=== PATIENT | male | born 1930 | race Caucasian/White ===

== ENCOUNTER 2017-10-02 19:09 | Inpatient (IN) | payer MEDICARE, OTHER ==
[2017-10-02 19:51] LABS: % BASOPHILS 0.9 % (0.0-2.0); % EOSINOPHILS 1.9 % (0.0-5.0); % LYMPHOCYTES 7.5 % (20.0-50.0); % MONOCYTES 6.3 % (2.0-10.0); % NEUTROPHILS 83.4 % (40.0-80.0); BASOPHILE ABSOLUTE 0.1 Th/cumm (0-0.2); EOSINOPHILE ABSOLUTE 0.3 Th/cmm (0.1-0.4); HEMATOCRIT 37.4 % (41.0-60); HEMOGLOBIN 12.6 gm/dL (12-16); MEAN CELL VOLUME 92.5 fl (80-99); MEAN CORPUSCULAR HEMOGLOBIN 31.1 pg (27.0-31.0); MEAN CORPUSCULAR HGB CONC 33.7 pg (28.0-36.0); MEAN PLATELET VOLUME 13.6 fl; MONOCYTE ABSOLUTE 0.9 Th/cmm (0.3-1.0); NEUTROPHILE ABSOLUTE 11.4 Th/cmm (1.8-8.0); PLATELET COUNT 171 Th/cmm (150-400); RED BLOOD COUNT 4.05 Mil/cmm (3.80-5.80); RED CELL DISTRIBUTION WIDTH 16.5 % (11.5-20.0)
[2017-10-02 20:00] LABS: WHITE BLOOD COUNT 13.7 Th/cmm (4.8-10.8)
[2017-10-02 20:03] LABS: INR 1.03 (0.5-1.4); PROTHROMBIN TIME (TEST) 10.7 SECONDS (9.5-11.5)
[2017-10-02 20:06] LABS: ANION GAP 12.6 (7.0-16.0); BUN - UREA NITROGEN 60 mg/dL (7-25); CALCIUM SERUM 9.5 mg/dL (8.6-10.3); CARBON DIOXIDE 26.4 mEq/L (21.0-31.0); CHLORIDE 112 mEq/L (98-107); CREATININE - SERUM 1.1 mg/dL (0.7-1.3); GLUCOSE 112 mg/dL (70-105); SODIUM SERUM 147 mEq/L (136-145)
--- NOTE | 2017-10-02 20:16 | ED Physician Chart ---
ED Chief Complaint/HPI - Patient Information Date Seen:: 10/02/17 Time Seen:: 20:05 Chief Complaint:: cough and congestion History of Present Illness:: Patient's had cough and congestion for an unspecified length of time Allergies:: Allergies Allergy/AdvReac Type Severity Reaction Status Date / Time No Known Allergies Allergy Verified 10/02/17 19:21 Vitals:: Vital Signs - 8 hr 10/02/17 19:15 Temp 98.2 F HR 70 RR 24 BP 143/66 O2 Sat % 98 Historian:: EMS Review:: Transfer documents Reviewed ED Review of Systems - Review of Systems General/Constitutional: No fever, No chills Skin: No skin lesions Head: No headache Eyes: No loss of vision ENT: No earache Neck: No neck pain Pulmonary: Cough GI: No nausea, No vomiting, No diarrhea G/U: No dysuria Musculoskeletal: No bone or joint pain, No muscle pain Endocrine: No polyuria Psychiatric: Other (dementia) Hematopoietic: No bruising Allergic/Immuno: No urticaria Neurological: No syncope ED Past Medical History - Past Medical History Past Medical History: Dementia, Other (status post urinary tract infection and urosepsis; dementia; hypothyroidism; intractable lower abdominal pain; malnutrition; hypokalemia; hiatal hernia) Family History: Other (unavailable) Social History: Care Facility Surgical History: PEG/GTube Psychiatricy History: Dementia Medication: Reviewed Family Medical History - Family Member Mother History Unknown: Yes ED Physical Exam - Physical Examination Other Gen/Cons comments:: Chronically ill-appearing; minimally verbal Eyes: Lids, conjuctiva normal Skin: No skin lesions ENMT: External ears, nose nl, Oropharynx nl Neck: No mass Respiratory: Nl effort/Exclusion, Clear to Auscultation Cardio Vascular: RRR, No murmur, gallop, rubs GI: No organomegaly, No hernia, Normal BS's Other GI comments:: Left upper quadrant tenderness Extremities: Normal digits & nails Neuro/Psych: No focal deficits ED Labs/Radiology/EKG Results - Lab Results Results: Laboratory Tests 10/02/17 10/02/17 19:43 19:43 WBC 13.7 H RBC 4.05 Hgb 12.6 Hct 37.4 L MCV 92.5 MCH 31.1 H MCHC Differential 33.7 RDW 16.5 Plt Count 171 MPV 13.6 Neutrophils % 83.4 H Lymphocytes % 7.5 L Monocytes % 6.3 Eosinophils % 1.9 Basophils % 0.9 Sodium 147 H Potassium 4.0 Chloride 112 H Carbon Dioxide 26.4 Anion Gap 12.6 BUN 60 H Creatinine 1.1 Est GFR ( Amer) TNP Est GFR (Non-Af Amer) TNP BUN/Creatinine Ratio 54.5 Glucose 112 H Calcium 9.5 - Radiology Results Results: Chest x-ray showed calcification of the aortic arch, hiatal hernia and fecal impaction. CT abdomen and pelvis showed basilar infiltrates and fecal impaction of the sigmoid colon. ED Septic Shock - . Is Septic Shock (SBP<90, OR Lactate>4 mmol\L) present?: No - <6hrs of presentation: Vital Signs: Vital Signs - 8 hr 10/02/17 19:15 Temp 98.2 F HR 70 RR 24 BP 143/66 O2 Sat % 98 ED Reassessment (Disposition) - Reassessment Reassessment Condition:: Unchanged - Diagnosis Diagnosis:: Pneumonia; leukocytosis; fecal impaction; dementia - Patient Disposition Admitted to:: Med/Surg Spoke to:: Ritchie Urbina Admitting Medical Physician:: Ritchie Urbina Condition at Disposition:: Stable, Unchanged
[2017-10-02] MEDS ORDERED: Sodium Chloride 0.9% 1,000 ML IV ONE (21:33)
[2017-10-02] MEDS ORDERED: Piperacillin Sodium/Tazobact 3.375 gm Vial IV ONE (21:36)
[2017-10-02] MEDS ORDERED: Magnesium Hydroxide (MOM) 30 mL UDC GT PRN (21:41)
[2017-10-02] MEDS ORDERED: D5-0.9%NS 1,000 ML IV SCH (21:45)
[2017-10-02] MEDS ORDERED: Albuterol/Ipratropium Neb 3 ML AERS HHN PRN (21:46)
[2017-10-02] MEDS ORDERED: Potassium Chloride 40 MEQ, Lidocaine 1% 20mL Vial 25 MG in Sodium Chloride 0.9% 250 ML IV PRN (21:47)
[2017-10-02] MEDS ORDERED: Morphine Sulfate 2 mg/mL 1mL Syr IVP PRN (21:47)
[2017-10-02] MEDS ORDERED: Mag Sulfate 2gm/50mL Premix 2 GM/50 ML BAG IV PRN (21:47)
[2017-10-02] MEDS ORDERED: Fleet Enema 135 mL RC ONE (21:47)
[2017-10-02] MEDS ORDERED: Pneumococcal Vaccine 0.5 mL Vial IM ONE (23:42)
[2017-10-03] MEDS ORDERED: Piperacillin Sodium/Tazobact 2.25 gm Vial IV ONE ×2 (00:29→05:32)
[2017-10-03 06:09] LABS: % BASOPHILS 0.5 % (0.0-2.0); % EOSINOPHILS 4.5 % (0.0-5.0); % LYMPHOCYTES 8.7 % (20.0-50.0); % MONOCYTES 6.7 % (2.0-10.0); % NEUTROPHILS 79.6 % (40.0-80.0); BASOPHILE ABSOLUTE 0.1 Th/cumm (0-0.2); EOSINOPHILE ABSOLUTE 0.5 Th/cmm (0.1-0.4); HEMATOCRIT 33.7 % (41.0-60); HEMOGLOBIN 11.3 gm/dL (12-16); MEAN CORPUSCULAR HEMOGLOBIN 31.1 pg (27.0-31.0); MEAN CORPUSCULAR HGB CONC 33.5 pg (28.0-36.0); MONOCYTE ABSOLUTE 0.8 Th/cmm (0.3-1.0); NEUTROPHILE ABSOLUTE 8.8 Th/cmm (1.8-8.0); RED BLOOD COUNT 3.62 Mil/cmm (3.80-5.80); RED CELL DISTRIBUTION WIDTH 16.2 % (11.5-20.0); WHITE BLOOD COUNT 11.2 Th/cmm (4.8-10.8)
[2017-10-03 06:10] LABS: PLATELET COUNT 126 Th/cmm (150-400)
[2017-10-03 06:24] LABS: ANION GAP 8.5 (7.0-16.0); BUN - UREA NITROGEN 51 mg/dL (7-25); CALCIUM SERUM 8.5 mg/dL (8.6-10.3); CARBON DIOXIDE 26.8 mEq/L (21.0-31.0); CHLORIDE 118 mEq/L (98-107); GLUCOSE 118 mg/dL (70-105); POTASSIUM SERUM 3.3 mEq/L (3.5-5.1); SODIUM SERUM 150 mEq/L (136-145)
--- NOTE | 2017-10-03 08:11 | Diagnostic Imaging Report ---
Portable chest x-ray HISTORY: Cough Heart size difficult to assess with portable technique in a poor inspiration. There is a poor inspiration with elevation the right hemidiaphragm. Allowing for this factor, no focal processes are seen. Atherosclerotic calcination seen within the aorta. No evidence of pleural fluid. IMPRESSION: 1. Allowing for a poor inspiration, no acute focal pulmonary processes 2. Atherosclerotic vascular changes
--- NOTE | 2017-10-03 08:15 | Diagnostic Imaging Report ---
CT scan abdomen and pelvis without intravenous contrast HISTORY: Pain Total DLP equals 415 CTDI equals 7.3 Axial sections were obtained from the xiphoid process down to the pubic symphysis. Limited sections through the lower chest demonstrate coronary artery calcification. Nonspecific interstitial changes noted in the lower lobes the lungs with pleural thickening. Findings appear chronic. There is a moderate to large hiatal hernia. The liver exhibits a homogeneous parenchyma. Abnormal intraluminal density with intraluminal filling defects noted within the gallbladder. Findings consistent with cholelithiasis. The spleen appears normal. The pancreas appears atrophic. No definite focal lesions. The left kidney is atrophic. There is a mild degree of dilatation of the right renal [place] collecting system. No definite urinary tract calculi are seen. The exam of the pelvis demonstrates is severely distended stool-filled rectum and lower sigmoid colon (maximum diameter equals approximately 12.0 cm). Findings consistent with a fecal impaction. No other abnormal masses or fluid collections are seen. Atherosclerotic [place] case noted throughout the aorta and major branches. Degenerative changes seen to the spine. IMPRESSION: 1. Markedly distended stool-filled rectum and lower sigmoid colon consistent with a severe fecal impaction 2. Mild dilatation of the right renal pelvis that may be related to the markedly distended stool-filled rectum. 3. Findings consistent with cholelithiasis 4. Evidence of coronary artery and atherosclerotic vascular disease 5. Bilateral lower lobe interstitial pulmonary changes and pleural thickening that appear chronic. 6. Moderate to large hiatal hernia
[2017-10-03] MEDS: Levothyroxine 0.05 Mg Tab GT SCH (08:47)
[2017-10-03] MEDS: Aspirin 81mg Chewable Tab GT SCH (08:47)
[2017-10-03] MEDS ORDERED: Sodium Chloride 0.45% 1,000 ML IV SCH (09:00)
--- NOTE | 2017-10-03 09:34 | History & Physical ---
ADMIT DATE: 10/03/2017 CHIEF COMPLAINT: Fevers, cough, and congestion and decreased O2 saturations. HISTORY OF PRESENT ILLNESS: The patient is an 87-year-old male who is a patient of mine at [facility] in [place] for the last couple of days. He was experiencing cough, congestion, and lately he started having intractable fevers. He also had severe fecal impaction and some nausea as well. He also was declining and was more altered than usual. He was sent to the hospital where he was found to have sepsis and hypernatremia and severe fecal impaction. PAST MEDICAL HISTORY: Significant for Alzheimer dementia, COPD, hypertension, and dysphagia. SOCIAL HISTORY: No documented history of alcohol, tobacco, or drug abuse. FAMILY HISTORY: Noncontributory. ALLERGIES: No known drug allergies. PAST SURGICAL HISTORY: Positive for G-tube placement. MEDICATIONS: All medications reviewed and reconciled. REVIEW OF SYSTEMS: GENERAL: Positive recent fatigue and fevers and overall decline. HEENT: No recent head trauma, change in vision, taste, hearing, or smell. Oral: No recent pain or discharge. NECK: No recent tracheal deviation. ABDOMEN: Positive for recent distention. SKIN: No recent rashes. GASTROINTESTINAL: Positive for severe constipation and some nausea as well. MUSCULOSKELETAL: The patient is mostly bedbound. NEURO: He has history of Alzheimer dementia. SKIN: No recent rashes. GENITOURINARY: Positive for increased urinary frequency and incontinence. PHYSICAL EXAMINATION: VITAL SIGNS: Temperature is 98.4 degrees, heart rate is 81, yesterday's temperature is 99, blood pressure 123/81, respirations 18. Currently, no pain. GENERAL: No acute distress. He is awake, but not alert. HEENT: No acute issues. NECK: Trachea is midline. No JVD. CARDIOVASCULAR: Regular rate and rhythm. ABDOMEN: Nontender, slightly distended. It is improved from yesterday. Bowel sounds are present. EXTREMITIES: No edema. SKIN: Poor turgor. RESPIRATORY: Decreased breath sounds bilaterally with some congestion. PSYCHIATRIC: No psychosis or hallucinations. NEUROLOGIC: He is bedbound. MUSCULOSKELETAL: He has significant muscle wasting and decreased muscle strength. LABORATORY DATA: The patient's abdominal pelvis CT shows severe fecal impaction. Chest x-ray does not show any acute abnormalities. LABORATORY DATA: Sodium 147, potassium 4.0, chloride 112, bicarbonate 26.4, BUN 60, creatinine is 1.11, glucose 112, calcium is 8.5. White count is 13.7, hemoglobin is 12.6, platelet count 171,000. ASSESSMENT: 1. Sepsis. 2. Hypovolemic hypernatremia. 3. Hypertension. 4. Chronic obstructive pulmonary disease. 5. Dysphagia. 6. Fecal impaction. 7. Metabolic encephalopathy. 8. Dementia, Alzheimer's type with exacerbation. PLAN: The patient is on IV Zosyn. He received an enema yesterday. He had a few bowel movements. I will get a KUB before starting his G-tube feedings. Dr. Mahan has been consulted for GI as mentioned above. He is n.p.o. except meds. Continue IV fluids. I have changed IV fluids to D5 half NS due to the hypovolemic hypernatremia. Continue blood pressure medications. Follow up on influenza screen and UA as well. JOB# [id number]
--- NOTE | 2017-10-03 09:38 | Diagnostic Imaging Report ---
KUB abdominal film HISTORY: Pain, fecal impaction The exam demonstrates a severely dilated stool-filled rectum and sigmoid colon consistent with a severe fecal impaction. Associated displacement of adjacent bowel loops. No free peritoneal air. IMPRESSION: 1. Markedly dilated stool-filled rectum and sigmoid colon consistent with a severe fecal impaction.
[2017-10-03] MEDS: Potassium Chloride 20 mEq ER Tab PO PRN (09:53)
[2017-10-03] MEDS: D5-0.45NS 1,000 ML IV SCH (10:48)
--- NOTE | 2017-10-04 01:44 | Consultation ---
DATE OF CONSULTATION: 10/03/2017 GI CONSULTATION CONSULTING PHYSICIAN: Ritchie Urbina D.O. REASON FOR CONSULTATION: Fecal impaction. HISTORY OF PRESENT ILLNESS: The patient is an 87-year-old male with past medical history significant for Alzheimer's dementia, COPD who is a resident of a [facility] facility and transferred to the hospital for increasing cough, congestion, nausea, vomiting. It was noted that the patient started to have increasing congestion and coughing and had increasing nausea more than usual over the past several days. There is no documentation of whether the patient was having bowel movements at the nursing facility, although on arrival to the Emergency Room imaging revealed a severe fecal impaction with dilation in the rectum. Thus, the patient was admitted to the hospital for treatment of sepsis, hypernatremia and fecal impaction. PAST MEDICAL HISTORY: Alzheimer's dementia, COPD, hypertension, dysphagia. PAST SURGICAL HISTORY: G-tube placement in the past. FAMILY HISTORY: Noncontributory. SOCIAL HISTORY: The patient is a permanent resident of a nursing facility. There is no documented history of alcohol or drug use. REVIEW OF SYSTEMS: Not possible at this point given the patient's reduced mental status. CURRENT MEDICATIONS: Tylenol, albuterol, aspirin, bisacodyl, heparin subcutaneous, hydralazine, Synthroid, Ativan, milk of magnesia, Lopressor, magnesium sulfate, morphine as needed, Zofran as needed, Zosyn, and Ambien as needed. PHYSICAL EXAMINATION: VITAL SIGNS: Blood pressure is 123/71, pulse of 70-81 beats per minute, temperature 98.4, oxygenation 94%. GENERAL: The patient is lying on his side, flat in bed. He is alert, but not oriented. HEAD, EARS, EYES, NOSE, AND THROAT: Atraumatic, normocephalic appearing head. Pupils are equal and reactive. There is no scleral icterus. Moist mucous membranes are noted. NECK: Supple. No JVD, no thyromegaly, no lymphadenopathy. CHEST: There are bibasilar crackles. CARDIOVASCULAR: S1, S2 are present, regular rate and rhythm. ABDOMEN: G-tube site is clean, dry and intact. Abdomen is soft on palpation. There is no distention, no guarding, no rebound. EXTREMITIES: Contracted. No edema. SKIN: No obvious jaundice or other rashes. LABORATORY DATA: White blood cell count is 11.2, hemoglobin 11.3, platelet count 126. Sodium 150, BUN 51, creatinine 1.0, INR 1.03. Abdomen and pelvis CT on 10/02/2017 showed markedly distended stool-filled rectum and lower sigmoid colon consistent with severe fecal impaction, mild dilation of the right renal pelvis, findings consistent with cholelithiasis. Evidence of coronary artery and atherosclerotic disease, moderate to large hiatal hernia. IMPRESSION: The patient is an 87-year-old male with Alzheimer's dementia, chronic obstructive pulmonary disease, who is a permanent resident of the nursing facility, admitted now to the hospital with signs of possible pulmonary infection as well as fecal impaction and hypernatremia. 1. Fecal impaction. 2. Hypernatremia. 3. Possible sepsis. 4. Alzheimer's dementia. 5. Dysphagia with the G-tube. DISCUSSION: The patient does have fecal impaction on imaging, although his abdomen is not visibly distended on exam. The patient received several Fleet enemas yesterday evening and did have several bowel movements, according to the nursing report. He will likely need much further evacuation of the stool that remains in his left side of his colon and we can attempt this with more enemas today and a very slow bowel prep with GoLYTELY solution. RECOMMENDATIONS: 1. We will give 500 mL tap water enema now and again in 6-8 hours to evacuate more stool from the colon. 2. Periodic digital rectal disimpaction if any stool is in the rectal vault. 3. We will give a slow 4 liter GoLYTELY bowel prep via the G-tube over the course of 24 hours. If the patient has any vomiting or nausea with this, bowel prep will be stopped in order to prevent overloading. 4. The patient will be kept n.p.o. for now. I will continue to follow the patient. Thank you for allowing me to participate in his care. Please call with any further questions. JOB# [id number]
[2017-10-04] MEDS: D5-0.45NS 1,000 ML IV SCH ×2 (03:28→17:17)
[2017-10-04 05:20] LABS: INF A SCREEN NEG FOR INF A; INF B SCREEN NEG FOR INF B
[2017-10-04 06:01] LABS: % BASOPHILS 0.9 % (0.0-2.0); % EOSINOPHILS 15.1 % (0.0-5.0); % LYMPHOCYTES 17.2 % (20.0-50.0); % MONOCYTES 6.4 % (2.0-10.0); % NEUTROPHILS 60.4 % (40.0-80.0); BASOPHILE ABSOLUTE 0.1 Th/cumm (0-0.2); EOSINOPHILE ABSOLUTE 1.1 Th/cmm (0.1-0.4); HEMATOCRIT 34.6 % (41.0-60); HEMOGLOBIN 11.6 gm/dL (12-16); LYMPHOCYTE ABSOLUTE 1.2 Th/cmm (1.5-3.0); MEAN CELL VOLUME 93.1 fl (80-99); MEAN CORPUSCULAR HEMOGLOBIN 31.1 pg (27.0-31.0); MEAN CORPUSCULAR HGB CONC 33.4 pg (28.0-36.0); MEAN PLATELET VOLUME 12.7 fl; MONOCYTE ABSOLUTE 0.5 Th/cmm (0.3-1.0); NEUTROPHILE ABSOLUTE 4.3 Th/cmm (1.8-8.0); PLATELET COUNT 136 Th/cmm (150-400); RED BLOOD COUNT 3.71 Mil/cmm (3.80-5.80); RED CELL DISTRIBUTION WIDTH 16.6 % (11.5-20.0)
[2017-10-04 06:04] LABS: WHITE BLOOD COUNT 7.2 Th/cmm (4.8-10.8)
[2017-10-04 06:15] LABS: ANION GAP 9.1 (7.0-16.0); BUN - UREA NITROGEN 37 mg/dL (7-25); CALCIUM SERUM 8.5 mg/dL (8.6-10.3); CHLORIDE 115 mEq/L (98-107); CREATININE - SERUM 0.9 mg/dL (0.7-1.3); GLUCOSE 95 mg/dL (70-105); POTASSIUM SERUM 3.1 mEq/L (3.5-5.1); SODIUM SERUM 148 mEq/L (136-145)
[2017-10-04] MEDS: Levothyroxine 0.05 Mg Tab GT SCH (06:55)
[2017-10-04] MEDS ORDERED: Potassium Chloride 20 mEq ER Tab PO PRN (07:21)
--- NOTE | 2017-10-04 07:26 | General Progress Note ---
Subjective - Review of Systems Service Date: 10/04/17 Subjective: Pt is status post enemas and a few BMs. However, the KUB following that still shows severe fecal impaction. Dr. Santos saw pt. He gave orders for water enema and golytly. Pt in bed. No n,v,d or cp. No falls or sz. No cough. No sz. Objective - Results Result Diagrams: 10/04/17 05:44 10/04/17 05:44 Recent Labs: Laboratory Last Values WBC 7.2 Th/cmm (4.8-10.8) D 10/04/17 05:44 RBC 3.71 Mil/cmm (3.80-5.80) L 10/04/17 05:44 Hgb 11.6 gm/dL (12-16) L 10/04/17 05:44 Hct 34.6 % (41.0-60) L 10/04/17 05:44 MCV 93.1 fl (80-99) 10/04/17 05:44 MCH 31.1 pg (27.0-31.0) H 10/04/17 05:44 MCHC Differential 33.4 pg (28.0-36.0) 10/04/17 05:44 RDW 16.6 % (11.5-20.0) 10/04/17 05:44 Plt Count 136 Th/cmm (150-400) L 10/04/17 05:44 MPV 12.7 fl 10/04/17 05:44 Neutrophils % 60.4 % (40.0-80.0) 10/04/17 05:44 Lymphocytes % 17.2 % (20.0-50.0) L 10/04/17 05:44 Monocytes % 6.4 % (2.0-10.0) 10/04/17 05:44 Eosinophils % 15.1 % (0.0-5.0) H 10/04/17 05:44 Basophils % 0.9 % (0.0-2.0) 10/04/17 05:44 PT 10.7 SECONDS (9.5-11.5) 10/02/17 19:43 INR 1.03 (0.5-1.4) 10/02/17 19:43 PTT (Actin FS) 27.6 SECONDS (26.0-38.0) 10/02/17 19:43 Sodium 148 mEq/L (136-145) H 10/04/17 05:44 Potassium 3.1 mEq/L (3.5-5.1) L 10/04/17 05:44 Chloride 115 mEq/L (98-107) H 10/04/17 05:44 Carbon Dioxide 27.0 mEq/L (21.0-31.0) 10/04/17 05:44 Anion Gap 9.1 (7.0-16.0) 10/04/17 05:44 BUN 37 mg/dL (7-25) H 10/04/17 05:44 Creatinine 0.9 mg/dL (0.7-1.3) 10/04/17 05:44 Est GFR ( Amer) TNP 10/04/17 05:44 Est GFR (Non-Af Amer) TNP 10/04/17 05:44 BUN/Creatinine Ratio 41.1 10/04/17 05:44 Glucose 95 mg/dL (70-105) 10/04/17 05:44 Whole Bld Lactic Acid 1.41 mmol/L (0.60-1.99) 10/02/17 19:43 Calcium 8.5 mg/dL (8.6-10.3) L 10/04/17 05:44 Influenza A (Rapid) NEG FOR INF A 10/04/17 02:53 Influenza B (Rapid) NEG FOR INF B 10/04/17 02:53 - Physical Exam Vitals and I&O: Vital Signs Temp 96.8 F 10/04/17 04:00 Pulse 60 10/04/17 04:00 Resp 18 10/04/17 04:00 BP 138/65 10/04/17 04:00 Pulse Ox 97 10/04/17 04:00 Intake & Output 10/03/17 10/04/17 10/04/17 18:59 06:59 18:59 Intake Total 50 2600.00 Balance 50 2600.00 Weight (lbs) 49.895 kg Intake: Intake, IV Amount 50 1100.00 D5-0.45NS 1,000 ml @ 75 1000.00 mls/hr IV .[id number] [facility] Rx #:[id number] Piperacillin Sodium/ 50 100 Tazobact 2.25 gm In Sodium Chloride 0.9% 50 ml @ 100 mls/hr IV Q6HR [facility] Rx#:[id number] Tube Feeding 1500 Other: # Voids 3 # Bowel Movements 2 Stool Characteristics Soft Soft Formed Formed Brown Brown Active Medications: Current Medications Acetaminophen (Tylenol) 650 mg GT Q6HR PRN PRN Reason: Pain or Fever >101 Stop: 12/01/17 21:40 Albuterol/Ipratropium (Duoneb Neb) 3 ml HHN Q4HRT PRN PRN Reason: Wheezing Stop: 12/01/17 21:45 Aspirin (Aspirin Chewable) 81 mg GT DAILY [facility] Stop: 12/02/17 08:59 Last Admin: 10/03/17 08:47 Dose: 81 mg Bisacodyl (Dulcolax 10 Mg Supp) 10 mg RC DAILY PRN PRN Reason: Constipation Stop: 12/01/17 21:40 Heparin Sodium (Porcine) (Heparin) 5,000 units SUBQ Q12H [facility] Stop: 12/01/17 21:44 Last Admin: 10/03/17 20:46 Dose: Not Given Hydralazine HCl (Apresoline) 25 mg GT TID PRN PRN Reason: SBP > 150 Stop: 12/01/17 21:40 Potassium Chloride 40 meq/Lidocaine HCl 25 mg/ Sodium Chloride 272.5 mls @ 68 mls/hr IV DAILY PRN PRN Reason: k level less than 3.2 Stop: 12/01/17 21:46 Magnesium Sulfate (Magnesium Sulfate Premix) 2 gm in 50 mls @ 25 mls/hr IV DAILY PRN PRN Reason: Magnesium level less than 1.6 Stop: 12/01/17 21:46 Piperacillin Sod/Tazobactam (Sod 2.25 gm/ Sodium Chloride) 50 mls @ 100 mls/hr IV Q6HR [facility] Stop: 12/02/17 00:00 Last Admin: 10/04/17 06:54 Dose: 100 mls/hr Dextrose/Sodium Chloride (D5-0.45ns) 1,000 mls @ 75 mls/hr IV .[id number] [facility] Stop: 12/02/17 09:14 Last Admin: 10/04/17 03:28 Dose: 75 mls/hr Levothyroxine Sodium (Synthroid) 0.05 mg GT QDAC [facility] Stop: 12/02/17 07:29 Last Admin: 10/04/17 06:55 Dose: 0.05 mg Lorazepam (Ativan) 2 mg IVP Q4HR PRN; Protocol PRN Reason: Anxiety Stop: 12/01/17 21:46 Magnesium Hydroxide (Milk Of Magnesia) 30 ml GT HS PRN PRN Reason: Constipation Stop: 12/01/17 21:40 Metoprolol Tartrate (Lopressor) 25 mg GT BID LAMAR Stop: 12/02/17 08:59 Last Admin: 10/03/17 17:30 Dose: 25 mg Morphine Sulfate (Morphine) 2 mg IVP Q4H PRN PRN Reason: moderate pain Stop: 12/01/17 21:46 Ondansetron HCl (Zofran) 4 mg IVP Q6H PRN PRN Reason: Nausea / Vomiting Stop: 12/01/17 21:46 Potassium Chloride (Klor-Con) 40 meq PO DAILY PRN PRN Reason: k level less than 3.5 Stop: 12/01/17 21:46 Last Admin: 10/03/17 09:53 Dose: 40 meq Potassium Chloride (Klor-Con) 40 meq PO DAILY PRN PRN Reason: k level less than 3.5 Stop: 12/03/17 07:20 Sodium Phosphate (Fleet Enema) 135 ml RC Q48H PRN PRN Reason: Constipation Stop: 12/01/17 21:40 Zolpidem Tartrate (Ambien) 10 mg PO HS PRN PRN Reason: Insomnia Stop: 12/01/17 21:46 General: No acute distress HEENT: Atraumatic, PERRLA Neck: Supple, JVD Cardiovascular: Regular rate, Normal S1 Lungs: Clear to auscultation Abdomen: Bowel sounds Assessment/Plan - Assessment Assessment: Sepsis Hypovolemic Hypernatremia HTN COPD Dysphagia Fecal impaction ME TITUS with Exac - Plan Plan: GI saw pt and ordered water enema and Golytely. FU on bms today. On IV zosyn. WBC trending down. FU on UA and cultures. On iv 0.5ns. Na trending down.
[2017-10-04] MEDS: Aspirin 81mg Chewable Tab GT SCH (08:46)
[2017-10-04] MEDS: Potassium Chloride 20 mEq ER Tab PO PRN (08:47)
--- NOTE | 2017-10-04 08:47 | GI Progress Note ---
Subjective - Review of Systems Subjective: Still with some abd distension, pt denies pain. Has had BMs yesterday with tap water enemas and golytely Objective - Results Result Diagrams: 10/04/17 05:44 10/04/17 05:44 Recent Labs: Laboratory Last Values WBC 7.2 Th/cmm (4.8-10.8) D 10/04/17 05:44 RBC 3.71 Mil/cmm (3.80-5.80) L 10/04/17 05:44 Hgb 11.6 gm/dL (12-16) L 10/04/17 05:44 Hct 34.6 % (41.0-60) L 10/04/17 05:44 MCV 93.1 fl (80-99) 10/04/17 05:44 MCH 31.1 pg (27.0-31.0) H 10/04/17 05:44 MCHC Differential 33.4 pg (28.0-36.0) 10/04/17 05:44 RDW 16.6 % (11.5-20.0) 10/04/17 05:44 Plt Count 136 Th/cmm (150-400) L 10/04/17 05:44 MPV 12.7 fl 10/04/17 05:44 Neutrophils % 60.4 % (40.0-80.0) 10/04/17 05:44 Lymphocytes % 17.2 % (20.0-50.0) L 10/04/17 05:44 Monocytes % 6.4 % (2.0-10.0) 10/04/17 05:44 Eosinophils % 15.1 % (0.0-5.0) H 10/04/17 05:44 Basophils % 0.9 % (0.0-2.0) 10/04/17 05:44 PT 10.7 SECONDS (9.5-11.5) 10/02/17 19:43 INR 1.03 (0.5-1.4) 10/02/17 19:43 PTT (Actin FS) 27.6 SECONDS (26.0-38.0) 10/02/17 19:43 Sodium 148 mEq/L (136-145) H 10/04/17 05:44 Potassium 3.1 mEq/L (3.5-5.1) L 10/04/17 05:44 Chloride 115 mEq/L (98-107) H 10/04/17 05:44 Carbon Dioxide 27.0 mEq/L (21.0-31.0) 10/04/17 05:44 Anion Gap 9.1 (7.0-16.0) 10/04/17 05:44 BUN 37 mg/dL (7-25) H 10/04/17 05:44 Creatinine 0.9 mg/dL (0.7-1.3) 10/04/17 05:44 Est GFR ( Amer) TNP 10/04/17 05:44 Est GFR (Non-Af Amer) TNP 10/04/17 05:44 BUN/Creatinine Ratio 41.1 10/04/17 05:44 Glucose 95 mg/dL (70-105) 10/04/17 05:44 Whole Bld Lactic Acid 1.41 mmol/L (0.60-1.99) 10/02/17 19:43 Calcium 8.5 mg/dL (8.6-10.3) L 10/04/17 05:44 Influenza A (Rapid) NEG FOR INF A 10/04/17 02:53 Influenza B (Rapid) NEG FOR INF B 10/04/17 02:53 - Physical Exam Vitals and I&O: Vital Signs Temp 96.8 F 10/04/17 04:00 Pulse 60 10/04/17 04:00 Resp 18 10/04/17 04:00 BP 138/65 10/04/17 04:00 Pulse Ox 97 10/04/17 04:00 Intake & Output 10/03/17 10/04/17 10/04/17 18:59 06:59 18:59 Intake Total 50 2600.00 Balance 50 2600.00 Weight (lbs) 49.895 kg Intake: Intake, IV Amount 50 1100.00 D5-0.45NS 1,000 ml @ 75 1000.00 mls/hr IV .[id number] [facility] Rx #:[id number] Piperacillin Sodium/ 50 100 Tazobact 2.25 gm In Sodium Chloride 0.9% 50 ml @ 100 mls/hr IV Q6HR [facility] Rx#:[id number] Tube Feeding 1500 Other: # Voids 3 # Bowel Movements 2 Stool Characteristics Soft Soft Formed Formed Brown Brown Active Medications: Current Medications Acetaminophen (Tylenol) 650 mg GT Q6HR PRN PRN Reason: Pain or Fever >101 Stop: 12/01/17 21:40 Albuterol/Ipratropium (Duoneb Neb) 3 ml HHN Q4HRT PRN PRN Reason: Wheezing Stop: 12/01/17 21:45 Aspirin (Aspirin Chewable) 81 mg GT DAILY [facility] Stop: 12/02/17 08:59 Last Admin: 10/03/17 08:47 Dose: 81 mg Bisacodyl (Dulcolax 10 Mg Supp) 10 mg RC DAILY PRN PRN Reason: Constipation Stop: 12/01/17 21:40 Heparin Sodium (Porcine) (Heparin) 5,000 units SUBQ Q12H [facility] Stop: 12/01/17 21:44 Last Admin: 10/03/17 20:46 Dose: Not Given Hydralazine HCl (Apresoline) 25 mg GT TID PRN PRN Reason: SBP > 150 Stop: 12/01/17 21:40 Potassium Chloride 40 meq/Lidocaine HCl 25 mg/ Sodium Chloride 272.5 mls @ 68 mls/hr IV DAILY PRN PRN Reason: k level less than 3.2 Stop: 12/01/17 21:46 Magnesium Sulfate (Magnesium Sulfate Premix) 2 gm in 50 mls @ 25 mls/hr IV DAILY PRN PRN Reason: Magnesium level less than 1.6 Stop: 12/01/17 21:46 Piperacillin Sod/Tazobactam (Sod 2.25 gm/ Sodium Chloride) 50 mls @ 100 mls/hr IV Q6HR [facility] Stop: 12/02/17 00:00 Last Admin: 10/04/17 06:54 Dose: 100 mls/hr Dextrose/Sodium Chloride (D5-0.45ns) 1,000 mls @ 75 mls/hr IV .[id number] [facility] Stop: 12/02/17 09:14 Last Admin: 10/04/17 03:28 Dose: 75 mls/hr Levothyroxine Sodium (Synthroid) 0.05 mg GT QDAC [facility] Stop: 12/02/17 07:29 Last Admin: 10/04/17 06:55 Dose: 0.05 mg Lorazepam (Ativan) 2 mg IVP Q4HR PRN; Protocol PRN Reason: Anxiety Stop: 12/01/17 21:46 Magnesium Hydroxide (Milk Of Magnesia) 30 ml GT HS PRN PRN Reason: Constipation Stop: 12/01/17 21:40 Metoprolol Tartrate (Lopressor) 25 mg GT BID [facility] Stop: 12/02/17 08:59 Last Admin: 10/03/17 17:30 Dose: 25 mg Morphine Sulfate (Morphine) 2 mg IVP Q4H PRN PRN Reason: moderate pain Stop: 12/01/17 21:46 Ondansetron HCl (Zofran) 4 mg IVP Q6H PRN PRN Reason: Nausea / Vomiting Stop: 12/01/17 21:46 Potassium Chloride (Klor-Con) 40 meq PO DAILY PRN PRN Reason: k level less than 3.5 Stop: 12/01/17 21:46 Last Admin: 10/03/17 09:53 Dose: 40 meq Potassium Chloride (Klor-Con) 40 meq PO DAILY PRN PRN Reason: k level less than 3.5 Stop: 12/03/17 07:20 Sodium Phosphate (Fleet Enema) 135 ml RC Q48H PRN PRN Reason: Constipation Stop: 12/01/17 21:40 Zolpidem Tartrate (Ambien) 10 mg PO HS PRN PRN Reason: Insomnia Stop: 12/01/17 21:46 General: Alert, No acute distress HEENT: Atraumatic, PERRLA Neck: Supple Cardiovascular: Regular rate Lungs: Clear to auscultation Abdomen: Bowel sounds, Soft, Other (mild abd distension. G tube site c/d/i) Assessment/Plan - Assessment Assessment: # Fecal impaction # Abd distension # Possible pneumonia CT and KUB show large fecal impaction. Now s/p several enemas and partial golytely bowel prep and has had several BMs Plan: - cont with tap water enemas today, 500cc every 8 hours - cont with slow golytely bowel prep. Hold for nausea or vomiting - NPO until impaction is better resolved - KUB to monitor progress
--- NOTE | 2017-10-04 09:55 | Diagnostic Imaging Report ---
KUB single view HISTORY: Fecal impaction COMPARISON: KUB on 10/03/[address] abdomen and pelvis on 10/02/2017 FINDINGS: There is massive distal fecal impaction with joint gas-filled loops of bowel. Copious stool is noted. Overall generalized degree of stool contents have decreased since prior exam. IMPRESSION: Massive distal fecal impaction. Overall the degree of stool contents throughout the large bowel have slightly decreased since previous examination.
[2017-10-04 10:41] LABS: URINE MICROSCOPIC INDICATED? YES; URINE SOURCE CLEAN C
[2017-10-04 11:05] LABS: URINE BILIRUBIN NEGATIVE (NEGATIVE); URINE BLOOD NEGATIVE (NEGATIVE); URINE GLUCOSE (UA) NEGATIVE (NEGATIVE); URINE KETONE NEGATIVE (NEGATIVE); URINE LEUKOCYTE ESTERASE NEGATIVE (NEGATIVE); URINE NITRATE NEGATIVE (NEGATIVE); URINE PH 6.5 (4.6 - 8.0); URINE PROTEIN TRACE mg/dL (NEGATIVE)
[2017-10-04 11:55] LABS: URINE CLARITY HAZY (CLEAR); URINE COLOR YELLOW
[2017-10-04 12:56] LABS: URINE BACTERIA FEW /hpf (NONE SEEN); URINE EPITHELIAL CELLS OCCASIONAL /lpf (FEW); URINE RBC 0-2 /hpf (0-5)
[2017-10-05 05:37] LABS: % BASOPHILS 0.6 % (0.0-2.0); % EOSINOPHILS 13.6 % (0.0-5.0); % LYMPHOCYTES 15.4 % (20.0-50.0); % MONOCYTES 6.6 % (2.0-10.0); % NEUTROPHILS 63.8 % (40.0-80.0); HEMATOCRIT 31.9 % (41.0-60); HEMOGLOBIN 10.6 gm/dL (12-16); LYMPHOCYTE ABSOLUTE 1.1 Th/cmm (1.5-3.0); MEAN CELL VOLUME 92.6 fl (80-99); MEAN CORPUSCULAR HEMOGLOBIN 30.6 pg (27.0-31.0); MEAN CORPUSCULAR HGB CONC 33.1 pg (28.0-36.0); MEAN PLATELET VOLUME 10.6 fl; MONOCYTE ABSOLUTE 0.5 Th/cmm (0.3-1.0); NEUTROPHILE ABSOLUTE 4.5 Th/cmm (1.8-8.0); PLATELET COUNT 118 Th/cmm (150-400); RED BLOOD COUNT 3.45 Mil/cmm (3.80-5.80); RED CELL DISTRIBUTION WIDTH 15.5 % (11.5-20.0); WHITE BLOOD COUNT 7.1 Th/cmm (4.8-10.8)
[2017-10-05 06:01] LABS: ANION GAP 9.7 (7.0-16.0); BUN - UREA NITROGEN 27 mg/dL (7-25); CALCIUM SERUM 8.1 mg/dL (8.6-10.3); CARBON DIOXIDE 25.6 mEq/L (21.0-31.0); CHLORIDE 114 mEq/L (98-107); GLUCOSE 96 mg/dL (70-105); POTASSIUM SERUM 3.3 mEq/L (3.5-5.1); SODIUM SERUM 146 mEq/L (136-145)
[2017-10-05] MEDS ORDERED: Probiotic Screen MC PRN (10:00)
--- NOTE | 2017-10-05 10:13 | GI Progress Note ---
Subjective - Review of Systems Service Date: 10/05/17 Subjective: Finished bowel prep, having copious liquid stool. Objective - Results Result Diagrams: 10/05/17 05:17 10/05/17 05:17 Recent Labs: Laboratory Last Values WBC 7.1 Th/cmm (4.8-10.8) 10/05/17 05:17 RBC 3.45 Mil/cmm (3.80-5.80) L 10/05/17 05:17 Hgb 10.6 gm/dL (12-16) L 10/05/17 05:17 Hct 31.9 % (41.0-60) L 10/05/17 05:17 MCV 92.6 fl (80-99) 10/05/17 05:17 MCH 30.6 pg (27.0-31.0) 10/05/17 05:17 MCHC Differential 33.1 pg (28.0-36.0) 10/05/17 05:17 RDW 15.5 % (11.5-20.0) 10/05/17 05:17 Plt Count 118 Th/cmm (150-400) L 10/05/17 05:17 MPV 10.6 fl 10/05/17 05:17 Neutrophils % 63.8 % (40.0-80.0) 10/05/17 05:17 Lymphocytes % 15.4 % (20.0-50.0) L 10/05/17 05:17 Monocytes % 6.6 % (2.0-10.0) 10/05/17 05:17 Eosinophils % 13.6 % (0.0-5.0) H 10/05/17 05:17 Basophils % 0.6 % (0.0-2.0) 10/05/17 05:17 PT 10.7 SECONDS (9.5-11.5) 10/02/17 19:43 INR 1.03 (0.5-1.4) 10/02/17 19:43 PTT (Actin FS) 27.6 SECONDS (26.0-38.0) 10/02/17 19:43 Sodium 146 mEq/L (136-145) H 10/05/17 05:17 Potassium 3.3 mEq/L (3.5-5.1) L 10/05/17 05:17 Chloride 114 mEq/L (98-107) H 10/05/17 05:17 Carbon Dioxide 25.6 mEq/L (21.0-31.0) 10/05/17 05:17 Anion Gap 9.7 (7.0-16.0) 10/05/17 05:17 BUN 27 mg/dL (7-25) H 10/05/17 05:17 Creatinine 1.0 mg/dL (0.7-1.3) 10/05/17 05:17 Est GFR ( Amer) TNP 10/05/17 05:17 Est GFR (Non-Af Amer) TNP 10/05/17 05:17 BUN/Creatinine Ratio 27.0 10/05/17 05:17 Glucose 96 mg/dL (70-105) 10/05/17 05:17 Whole Bld Lactic Acid 1.41 mmol/L (0.60-1.99) 10/02/17 19:43 Calcium 8.1 mg/dL (8.6-10.3) L 10/05/17 05:17 Urine Source CLEAN C 10/04/17 10:00 Urine Color YELLOW 10/04/17 10:00 Urine Clarity HAZY (CLEAR) 10/04/17 10:00 Urine pH 6.5 (4.6 - 8.0) 10/04/17 10:00 Ur Specific Toyah 1.020 (1.005-1.030) 10/04/17 10:00 Urine Protein TRACE mg/dL (NEGATIVE) 10/04/17 10:00 Urine Glucose (UA) NEGATIVE mg/dL (NEGATIVE) 10/04/17 10:00 Urine Ketones NEGATIVE mg/dL (NEGATIVE) 10/04/17 10:00 Urine Blood NEGATIVE (NEGATIVE) 10/04/17 10:00 Urine Nitrate NEGATIVE (NEGATIVE) 10/04/17 10:00 Urine Bilirubin NEGATIVE (NEGATIVE) 10/04/17 10:00 Urine Urobilinogen 4.0 E.U./dL (0.2 - 1.0) H 10/04/17 10:00 Ur Leukocyte Esterase NEGATIVE (NEGATIVE) 10/04/17 10:00 Urine RBC 0-2 /hpf (0-5) H 10/04/17 10:00 Urine WBC 2-5 /hpf (0-5) H 10/04/17 10:00 Ur Epithelial Cells OCCASIONAL /lpf (FEW) 10/04/17 10:00 Urine Bacteria FEW /hpf (NONE SEEN) 10/04/17 10:00 Influenza A (Rapid) NEG FOR INF A 10/04/17 02:53 Influenza B (Rapid) NEG FOR INF B 10/04/17 02:53 - Physical Exam Vitals and I&O: Vital Signs Temp 96.9 F 10/05/17 07:52 Pulse 72 10/05/17 08:03 Resp 18 10/05/17 08:04 BP 134/66 10/05/17 07:52 Pulse Ox 93 10/05/17 08:03 Intake & Output 10/04/17 10/05/17 10/05/17 18:59 06:59 18:59 Intake Total 3328.75 50 Balance 3328.75 50 Weight (lbs) 55.202 kg 54.431 kg 54.885 kg Intake: Intake, IV Amount 1208.75 50 D5-0.45NS 1,000 ml @ 75 1058.75 mls/hr IV .[id number] [facility] Rx #:[id number] Piperacillin Sodium/ 150 50 Tazobact 2.25 gm In Sodium Chloride 0.9% 50 ml @ 100 mls/hr IV Q6HR [facility] Rx#:[id number] Oral 0 Tube Feeding 2120 Other: # Voids 3 4 # Bowel Movements 5 4 Stool Characteristics Soft Soft Liquid Liquid Liquid Brown Brown Active Medications: Current Medications Acetaminophen (Tylenol) 650 mg GT Q6HR PRN PRN Reason: Pain or Fever >101 Stop: 12/01/17 21:40 Last Admin: 10/04/17 11:37 Dose: 650 mg Albuterol/Ipratropium (Duoneb Neb) 3 ml HHN Q4HRT PRN PRN Reason: Wheezing Stop: 12/01/17 21:45 Aspirin (Aspirin Chewable) 81 mg GT DAILY [facility] Stop: 12/02/17 08:59 Last Admin: 10/04/17 08:46 Dose: 81 mg Bisacodyl (Dulcolax 10 Mg Supp) 10 mg RC DAILY PRN PRN Reason: Constipation Stop: 12/01/17 21:40 Heparin Sodium (Porcine) (Heparin) 5,000 units SUBQ Q12H [facility] Stop: 12/01/17 21:44 Last Admin: 10/04/17 22:45 Dose: Not Given Hydralazine HCl (Apresoline) 25 mg GT TID PRN PRN Reason: SBP > 150 Stop: 12/01/17 21:40 Potassium Chloride 40 meq/Lidocaine HCl 25 mg/ Sodium Chloride 272.5 mls @ 68 mls/hr IV DAILY PRN PRN Reason: k level less than 3.2 Stop: 12/01/17 21:46 Magnesium Sulfate (Magnesium Sulfate Premix) 2 gm in 50 mls @ 25 mls/hr IV DAILY PRN PRN Reason: Magnesium level less than 1.6 Stop: 12/01/17 21:46 Piperacillin Sod/Tazobactam (Sod 2.25 gm/ Sodium Chloride) 50 mls @ 100 mls/hr IV Q6HR [facility] Stop: 12/02/17 00:00 Last Admin: 10/05/17 05:48 Dose: 100 mls/hr Dextrose/Sodium Chloride (D5-0.45ns) 1,000 mls @ 75 mls/hr IV .[id number] [facility] Stop: 12/02/17 09:14 Last Infusion: 10/04/17 18:04 Dose: 75 mls/hr Lactobacillus Rhamnosus (Culturelle 15b) 1 each PO DAILY [facility] Stop: 12/05/17 08:59 Levothyroxine Sodium (Synthroid) 0.05 mg GT QDAC [facility] Stop: 12/02/17 07:29 Last Admin: 10/04/17 06:55 Dose: 0.05 mg Lorazepam (Ativan) 2 mg IVP Q4HR PRN; Protocol PRN Reason: Anxiety Stop: 12/01/17 21:46 Magnesium Hydroxide (Milk Of Magnesia) 30 ml GT HS PRN PRN Reason: Constipation Stop: 12/01/17 21:40 Metoprolol Tartrate (Lopressor) 25 mg GT BID [facility] Stop: 12/02/17 08:59 Last Admin: 10/04/17 16:48 Dose: Not Given Miscellaneous (Probiotic Screen) 1 ea MC PRN PRN PRN Reason: PROTOCOL Stop: 12/04/17 09:59 Morphine Sulfate (Morphine) 2 mg IVP Q4H PRN PRN Reason: moderate pain Stop: 12/01/17 21:46 Ondansetron HCl (Zofran) 4 mg IVP Q6H PRN PRN Reason: Nausea / Vomiting Stop: 12/01/17 21:46 Potassium Chloride (Klor-Con) 40 meq PO DAILY PRN PRN Reason: k level less than 3.5 Stop: 12/01/17 21:46 Last Admin: 10/04/17 08:47 Dose: 40 meq Potassium Chloride (Klor-Con) 40 meq PO DAILY PRN PRN Reason: k level less than 3.5 Stop: 12/03/17 07:20 Sodium Phosphate (Fleet Enema) 135 ml RC Q48H PRN PRN Reason: Constipation Stop: 12/01/17 21:40 Zolpidem Tartrate (Ambien) 10 mg PO HS PRN PRN Reason: Insomnia Stop: 12/01/17 21:46 General: Alert, No acute distress HEENT: Atraumatic, PERRLA Neck: Supple Cardiovascular: Regular rate Lungs: Clear to auscultation Abdomen: Bowel sounds, Soft, Other (mild abd distension. G tube site c/d/i) Assessment/Plan - Assessment Assessment: # Fecal impaction # Abd distension # Possible pneumonia CT and KUB show large fecal impaction. Now s/p several enemas and golytely bowel prep and is having liquid stool. KUB on 10/04 shows some improvement although still large amount of stool. Plan: - cont with tap water enemas today, 500cc every 8 hours - start miralax bid for maintenance - start feeds at low rate today - KUB to monitor progress tomorrow
[2017-10-05] MEDS: Aspirin 81mg Chewable Tab GT SCH (10:33)
[2017-10-05] MEDS: Potassium Chloride 20 mEq ER Tab PO PRN (10:45)
[2017-10-05] MEDS: POLYETHYLENE GLYCOL 3350 17 GM PACK PO SCH ×2 (12:34→17:27)
[2017-10-05] MEDS: D5-0.45NS 1,000 ML IV SCH (13:57)
--- NOTE | 2017-10-05 19:16 | Discharge Summary ---
DATE OF DISCHARGE: 10/05/2017 Date of transfer to halfway [facility] is 10/05/2017. CAUSE OF ADMISSION: The patient is an 87-year-old male, who is a patient of mine at halfway facility in [facility]. He was experiencing cough, congestion, and he started having intractable fevers. He also has severe fecal impaction and some nausea. He was declining and was altered than usual. In the ER, he was found to have sepsis, hypernatremia, severe fecal impaction. ADMITTING DIAGNOSES: 1. Sepsis. 2. Hypovolemic hypernatremia. 3. Hypertension. 4. Chronic obstructive pulmonary disease. 5. Dysphagia. 6. Severe fecal impaction. 7. Metabolic encephalopathy. 8. Dementia, Alzheimer's type with exacerbation. DISCHARGE DIAGNOSES: 1. Sepsis. 2. Hypovolemic hypernatremia. 3. Hypertension. 4. Chronic obstructive pulmonary disease. 5. Dysphagia. 6. Severe fecal impaction. 7. Metabolic encephalopathy. 8. Dementia, Alzheimer's type with exacerbation. SUMMARY OF HOSPITAL COURSE: The patient was started on IV Zosyn. He has received a couple of enemas. He started to have bowel movements. The KUB still shows massive amounts of fecal impaction, so Dr. Santos was consulted for GI. He gave him GoLYTELY and water enema, after that he had a few bowel movements. He is feeling much better now. He has been on IV fluids. He was n.p.o. I changed IV fluids to half NS and his hypernatremia has improved. Blood pressure medications were continued. The patient is feeling much better today. PHYSICAL EXAMINATION: VITAL SIGNS: Temperature 96.9 degrees, heart rate is 80, respirations 18, blood pressure 133/68. Currently, no pain. GENERAL: No acute distress, awake. HEENT: No acute issues. NECK: Trachea is midline. CARDIOVASCULAR: Regular rate and rhythm. ABDOMEN: G-tube is intact. Distention is improved. Bowel sounds are present. EXTREMITIES: No edema. SKIN: No rashes. LABORATORY DATA: Sodium 146, potassium 3.3, chloride 114, bicarbonate 25.6, BUN 27, creatinine is 1, calcium is 8.1. Please note that the patient will get his p.r.n. potassium this morning. White count has come down to 7.1, hemoglobin is 10.6, platelet count is 118,000. The patient's KUB shows distention with fecal impaction that was yesterday on 10/04. He has had several bowel movements since then. CONSULTS: Dr. Santos for GI. He has cleared him as well. DIAGNOSTIC DATA: Blood culture is negative. MRSA screen is negative. MEDICATIONS: All medications reviewed and reconciled. We will continue IV Zosyn for 2 more days. DISPOSITION: He is being discharged to halfway facility. The patient's family does not want [facility], so we have sent a requisition to [facility] in [place] since the family lives nearby. PROCEDURES: None. JOB# [id number]
[2017-10-06] MEDS: D5-0.45NS 1,000 ML IV SCH (05:51)
[2017-10-06 06:48] LABS: % BASOPHILS 0.2 % (0.0-2.0); % EOSINOPHILS 12.7 % (0.0-5.0); % LYMPHOCYTES 14.6 % (20.0-50.0); % MONOCYTES 7.1 % (2.0-10.0); % NEUTROPHILS 65.4 % (40.0-80.0); HEMATOCRIT 32.8 % (41.0-60); HEMOGLOBIN 11.3 gm/dL (12-16); LYMPHOCYTE ABSOLUTE 1.2 Th/cmm (1.5-3.0); MEAN CELL VOLUME 93.1 fl (80-99); MEAN CORPUSCULAR HGB CONC 34.4 pg (28.0-36.0); MEAN PLATELET VOLUME 10.7 fl; MONOCYTE ABSOLUTE 0.6 Th/cmm (0.3-1.0); NEUTROPHILE ABSOLUTE 5.4 Th/cmm (1.8-8.0); PLATELET COUNT 112 Th/cmm (150-400); RED BLOOD COUNT 3.52 Mil/cmm (3.80-5.80); RED CELL DISTRIBUTION WIDTH 15.5 % (11.5-20.0); WHITE BLOOD COUNT 8.2 Th/cmm (4.8-10.8)
[2017-10-06] MEDS: Levothyroxine 0.05 Mg Tab GT SCH (06:54)
[2017-10-06 07:04] LABS: ANION GAP 10.8 (7.0-16.0); BUN - UREA NITROGEN 19 mg/dL (7-25); CALCIUM SERUM 8.3 mg/dL (8.6-10.3); CHLORIDE 111 mEq/L (98-107); CREATININE - SERUM 0.9 mg/dL (0.7-1.3); GLUCOSE 116 mg/dL (70-105); SODIUM SERUM 140 mEq/L (136-145)
[2017-10-06 07:16] LABS: POTASSIUM SERUM 2.8 mEq/L (3.5-5.1)
[2017-10-06] MEDS ORDERED: Potassium Chloride Elixir 20 mEq /15 mL UDC PO PRN (08:06)
[2017-10-06] MEDS: Lactobacillus Rhamnosus GG 15 Billion CFU CAP.SPRINK PO SCH (08:47)
[2017-10-06] MEDS: POLYETHYLENE GLYCOL 3350 17 GM PACK PO SCH ×2 (08:48→17:23)
[2017-10-06] MEDS: Aspirin 81mg Chewable Tab GT SCH (08:48)
--- NOTE | 2017-10-06 09:53 | GI Progress Note ---
Subjective - Review of Systems Service Date: 10/06/17 Subjective: Having daily BMs Objective - Results Result Diagrams: 10/06/17 05:58 10/06/17 05:58 Recent Labs: Laboratory Last Values WBC 8.2 Th/cmm (4.8-10.8) 10/06/17 05:58 RBC 3.52 Mil/cmm (3.80-5.80) L 10/06/17 05:58 Hgb 11.3 gm/dL (12-16) L 10/06/17 05:58 Hct 32.8 % (41.0-60) L 10/06/17 05:58 MCV 93.1 fl (80-99) 10/06/17 05:58 MCH 32.0 pg (27.0-31.0) H 10/06/17 05:58 MCHC Differential 34.4 pg (28.0-36.0) 10/06/17 05:58 RDW 15.5 % (11.5-20.0) 10/06/17 05:58 Plt Count 112 Th/cmm (150-400) L 10/06/17 05:58 MPV 10.7 fl 10/06/17 05:58 Neutrophils % 65.4 % (40.0-80.0) 10/06/17 05:58 Lymphocytes % 14.6 % (20.0-50.0) L 10/06/17 05:58 Monocytes % 7.1 % (2.0-10.0) 10/06/17 05:58 Eosinophils % 12.7 % (0.0-5.0) H 10/06/17 05:58 Basophils % 0.2 % (0.0-2.0) 10/06/17 05:58 PT 10.7 SECONDS (9.5-11.5) 10/02/17 19:43 INR 1.03 (0.5-1.4) 10/02/17 19:43 PTT (Actin FS) 27.6 SECONDS (26.0-38.0) 10/02/17 19:43 Sodium 140 mEq/L (136-145) 10/06/17 05:58 Potassium 2.8 mEq/L (3.5-5.1) L* 10/06/17 05:58 Chloride 111 mEq/L (98-107) H 10/06/17 05:58 Carbon Dioxide 21.0 mEq/L (21.0-31.0) 10/06/17 05:58 Anion Gap 10.8 (7.0-16.0) 10/06/17 05:58 BUN 19 mg/dL (7-25) 10/06/17 05:58 Creatinine 0.9 mg/dL (0.7-1.3) 10/06/17 05:58 Est GFR ( Amer) TNP 10/06/17 05:58 Est GFR (Non-Af Amer) TNP 10/06/17 05:58 BUN/Creatinine Ratio 21.1 10/06/17 05:58 Glucose 116 mg/dL (70-105) H 10/06/17 05:58 Whole Bld Lactic Acid 1.41 mmol/L (0.60-1.99) 10/02/17 19:43 Calcium 8.3 mg/dL (8.6-10.3) L 10/06/17 05:58 Urine Source CLEAN C 10/04/17 10:00 Urine Color YELLOW 10/04/17 10:00 Urine Clarity HAZY (CLEAR) 10/04/17 10:00 Urine pH 6.5 (4.6 - 8.0) 10/04/17 10:00 Ur Specific Lacey 1.020 (1.005-1.030) 10/04/17 10:00 Urine Protein TRACE mg/dL (NEGATIVE) 10/04/17 10:00 Urine Glucose (UA) NEGATIVE mg/dL (NEGATIVE) 10/04/17 10:00 Urine Ketones NEGATIVE mg/dL (NEGATIVE) 10/04/17 10:00 Urine Blood NEGATIVE (NEGATIVE) 10/04/17 10:00 Urine Nitrate NEGATIVE (NEGATIVE) 10/04/17 10:00 Urine Bilirubin NEGATIVE (NEGATIVE) 10/04/17 10:00 Urine Urobilinogen 4.0 E.U./dL (0.2 - 1.0) H 10/04/17 10:00 Ur Leukocyte Esterase NEGATIVE (NEGATIVE) 10/04/17 10:00 Urine RBC 0-2 /hpf (0-5) H 10/04/17 10:00 Urine WBC 2-5 /hpf (0-5) H 10/04/17 10:00 Ur Epithelial Cells OCCASIONAL /lpf (FEW) 10/04/17 10:00 Urine Bacteria FEW /hpf (NONE SEEN) 10/04/17 10:00 Influenza A (Rapid) NEG FOR INF A 10/04/17 02:53 Influenza B (Rapid) NEG FOR INF B 10/04/17 02:53 - Physical Exam Vitals and I&O: Vital Signs Temp 98.1 F 10/06/17 07:38 Pulse 82 10/06/17 08:47 Resp 18 10/06/17 07:38 BP 158/85 10/06/17 08:47 Pulse Ox 95 10/06/17 07:38 Intake & Output 10/05/17 10/06/17 10/06/17 18:59 06:59 18:59 Intake Total 150 1340 Output Total 30 Balance 150 1310 Weight (lbs) 54.885 kg 56.699 kg Intake: Intake, IV Amount 150 1100 D5-0.45NS 1,000 ml @ 75 1000 mls/hr IV .[id number] [facility] Rx #:[id number] Piperacillin Sodium/ 150 100 Tazobact 2.25 gm In Sodium Chloride 0.9% 50 ml @ 100 mls/hr IV Q6HR [facility] Rx#:[id number] Oral 0 Tube Feeding 240 Output: Gastric Drainage 30 Other: # Voids 4 # Bowel Movements 1 Stool Characteristics Liquid Soft Brown Active Medications: Current Medications Acetaminophen (Tylenol) 650 mg GT Q6HR PRN PRN Reason: Pain or Fever >101 Stop: 12/01/17 21:40 Last Admin: 10/04/17 11:37 Dose: 650 mg Albuterol/Ipratropium (Duoneb Neb) 3 ml HHN Q4HRT PRN PRN Reason: Wheezing Stop: 12/01/17 21:45 Aspirin (Aspirin Chewable) 81 mg GT DAILY [facility] Stop: 12/02/17 08:59 Last Admin: 10/06/17 08:48 Dose: 81 mg Bisacodyl (Dulcolax 10 Mg Supp) 10 mg RC DAILY PRN PRN Reason: Constipation Stop: 12/01/17 21:40 Heparin Sodium (Porcine) (Heparin) 5,000 units SUBQ Q12H [facility] Stop: 12/01/17 21:44 Last Admin: 10/06/17 08:50 Dose: 5,000 units Hydralazine HCl (Apresoline) 25 mg GT TID PRN PRN Reason: SBP > 150 Stop: 12/01/17 21:40 Potassium Chloride 40 meq/Lidocaine HCl 25 mg/ Sodium Chloride 272.5 mls @ 68 mls/hr IV DAILY PRN PRN Reason: k level less than 3.2 Stop: 12/01/17 21:46 Magnesium Sulfate (Magnesium Sulfate Premix) 2 gm in 50 mls @ 25 mls/hr IV DAILY PRN PRN Reason: Magnesium level less than 1.6 Stop: 12/01/17 21:46 Piperacillin Sod/Tazobactam (Sod 2.25 gm/ Sodium Chloride) 50 mls @ 100 mls/hr IV Q6HR [facility] Stop: 12/02/17 00:00 Last Infusion: 10/06/17 06:20 Dose: Infused Dextrose/Sodium Chloride (D5-0.45ns) 1,000 mls @ 75 mls/hr IV .[id number] [facility] Stop: 12/02/17 09:14 Last Admin: 10/06/17 05:51 Dose: 75 mls/hr Potassium Chloride 40 meq/Lidocaine HCl 25 mg/ Sodium Chloride 272.5 mls @ 68 mls/hr IV X1 ONE Stop: 10/06/17 13:38 Lactobacillus Rhamnosus (Culturelle 15b) 1 each PO DAILY [facility] Stop: 12/05/17 08:59 Last Admin: 10/06/17 08:47 Dose: 1 each Levothyroxine Sodium (Synthroid) 0.05 mg GT QDAC [facility] Stop: 12/02/17 07:29 Last Admin: 10/06/17 06:54 Dose: 0.05 mg Lorazepam (Ativan) 2 mg IVP Q4HR PRN; Protocol PRN Reason: Anxiety Stop: 12/01/17 21:46 Last Admin: 10/06/17 08:46 Dose: 2 mg Magnesium Hydroxide (Milk Of Magnesia) 30 ml GT HS PRN PRN Reason: Constipation Stop: 12/01/17 21:40 Metoprolol Tartrate (Lopressor) 25 mg GT BID LAMAR Stop: 12/02/17 08:59 Last Admin: 10/06/17 08:47 Dose: 25 mg Miscellaneous (Probiotic Screen) 1 ea MC PRN PRN PRN Reason: PROTOCOL Stop: 12/04/17 09:59 Morphine Sulfate (Morphine) 2 mg IVP Q4H PRN PRN Reason: moderate pain Stop: 12/01/17 21:46 Ondansetron HCl (Zofran) 4 mg IVP Q6H PRN PRN Reason: Nausea / Vomiting Stop: 12/01/17 21:46 Polyethylene Glycol (Miralax) 17 gm PO BID LAMAR Stop: 12/04/17 10:14 Last Admin: 10/06/17 08:48 Dose: 17 gm Potassium Chloride (Potassium Chloride Elixir) 40 meq PO DAILY PRN PRN Reason: k level less than 3.5 Stop: 12/03/17 07:20 Last Admin: 10/06/17 08:47 Dose: 40 meq Sodium Phosphate (Fleet Enema) 135 ml RC Q48H PRN PRN Reason: Constipation Stop: 12/01/17 21:40 Zolpidem Tartrate (Ambien) 10 mg PO HS PRN PRN Reason: Insomnia Stop: 12/01/17 21:46 General: Alert HEENT: Atraumatic, PERRLA Neck: Supple Cardiovascular: Regular rate Lungs: Clear to auscultation Abdomen: Bowel sounds, Soft, Other (mild abd distension. G tube site c/d/i) Assessment/Plan - Assessment Assessment: # Fecal impaction # Abd distension # Possible pneumonia CT and KUB show large fecal impaction. Now s/p several enemas and golytely bowel prep and is having liquid stool. KUB on 10/04 shows some improvement although still large amount of stool. Plan: - recommend daily tap water enema back at his nursing facility - cont miralax bid for maintenance - cont tube feeds, and advance to goal rate
[2017-10-06] MEDS ORDERED: Potassium Chloride 40 MEQ, Lidocaine 1% 20mL Vial 25 MG in Sodium Chloride 0.9% 250 ML IV ONE (11:00)
[2017-10-06] MEDS ORDERED: methylPREDNISolone SS 40 mg Vial ONE (15:06)
[2017-10-06] MEDS ORDERED: methylPREDNISolone SS 40 mg Vial IVP ONE (15:09)
[2017-10-06] MEDS ORDERED: Albuterol/Ipratropium Neb 3 ML AERS HHN PRN (15:11)
[2017-10-06 15:34] LABS: ALLEN TEST YES; pH 7.49 (7.35-7.45)
[2017-10-06 15:55] LABS: ANION GAP 12.6 (7.0-16.0); BUN - UREA NITROGEN 22 mg/dL (7-25); CALCIUM SERUM 8.5 mg/dL (8.6-10.3); CARBON DIOXIDE 23.8 mEq/L (21.0-31.0); CHLORIDE 112 mEq/L (98-107); CREATININE - SERUM 1.1 mg/dL (0.7-1.3); GLUCOSE 103 mg/dL (70-105); POTASSIUM SERUM 3.4 mEq/L (3.5-5.1); SODIUM SERUM 145 mEq/L (136-145)
[2017-10-06] MEDS: Albuterol/Ipratropium Neb 3 ML AERS HHN SCH ×3 (16:06→23:22)
[2017-10-06] MEDS: methylPREDNISolone SS 40 mg Vial IVP SCH ×2 (18:18→23:47)
[2017-10-07] MEDS: Albuterol/Ipratropium Neb 3 ML AERS HHN SCH ×6 (02:43→23:26)
[2017-10-07 04:56] LABS: pH 7.22 (7.35-7.45)
[2017-10-07 04:58] LABS: ALLEN TEST pos
[2017-10-07 05:44] LABS: HEMATOCRIT 30.4 % (41.0-60); HEMOGLOBIN 10.3 gm/dL (12-16); LYMPHOCYTE ABSOLUTE 0.6 Th/cmm (1.5-3.0); MEAN CELL VOLUME 93.7 fl (80-99); MEAN CORPUSCULAR HEMOGLOBIN 31.7 pg (27.0-31.0); MEAN CORPUSCULAR HGB CONC 33.8 pg (28.0-36.0); MONOCYTE ABSOLUTE 0.3 Th/cmm (0.3-1.0); NEUTROPHILE ABSOLUTE 15.8 Th/cmm (1.8-8.0); PLATELET COUNT 132 Th/cmm (150-400); RED BLOOD COUNT 3.25 Mil/cmm (3.80-5.80); RED CELL DISTRIBUTION WIDTH 16.5 % (11.5-20.0)
[2017-10-07] MEDS: D5-0.45NS 1,000 ML IV SCH (05:56)
[2017-10-07] MEDS: methylPREDNISolone SS 40 mg Vial IVP SCH ×4 (05:58→23:12)
[2017-10-07 06:03] LABS: ANION GAP 10.9 (7.0-16.0); BUN - UREA NITROGEN 37 mg/dL (7-25); CALCIUM SERUM 8.4 mg/dL (8.6-10.3); CHLORIDE 116 mEq/L (98-107); CREATININE - SERUM 1.2 mg/dL (0.7-1.3); GLUCOSE 164 mg/dL (70-105); POTASSIUM SERUM 3.9 mEq/L (3.5-5.1); SODIUM SERUM 145 mEq/L (136-145)
[2017-10-07 06:37] LABS: WHITE BLOOD COUNT 16.7 Th/cmm (4.8-10.8)
[2017-10-07 06:52] LABS: TOTAL CELLS COUNTED 100
[2017-10-07 06:53] LABS: BAND NEUTROPHILE 5 % (0-10); LYMPHOCYTE 3 % (20-50); MONOCYTE 3 % (2-10); NEUTROPHILS 89 % (40-80); PLATELET ESTIMATE ADEQUATE (NORMAL)
[2017-10-07] MEDS: Levothyroxine 0.05 Mg Tab GT SCH ×2 (07:21→08:34)
--- NOTE | 2017-10-07 08:18 | Diagnostic Imaging Report ---
Exam: Portable chest x-ray HISTORY endotracheal tube placement Portable examination of the chest supine at 0443 hours reviewed compared to prior examination of 10/06/2017 demonstrates interval placement of endotracheal tube 4.3 cm above the christopher. There is evidence of COPD changes with mild bilateral basilar interstitial infiltrates. The costophrenic angles are clear. Right hemidiaphragm is elevated. IMPRESSION: endotracheal tube 4.3 cm above the christopher.
--- NOTE | 2017-10-07 08:20 | Diagnostic Imaging Report ---
Exam: Portable chest x-ray HISTORY: Shortness of breath. Findings: Portable portable examination of the chest at 1515 hours reviewed. The study demonstrates mild congestion. Mediastinal structures midline the heart is not enlarged. Elevation of the diaphragm bilaterally appreciated with distended bowel loops. No acute pulmonic great 7 noted. Mild left pleural thickening appreciated. IMPRESSION: 1. Mild congestion 2. Left basilar thickening, small effusion cannot be excluded follow-up observation recommended 3. Distended air bowel with elevation of the hemidiaphragms bilaterally
[2017-10-07] MEDS: Lactobacillus Rhamnosus GG 15 Billion CFU CAP.SPRINK PO SCH (08:34)
[2017-10-07] MEDS: Aspirin 81mg Chewable Tab GT SCH (08:35)
[2017-10-07] MEDS: POLYETHYLENE GLYCOL 3350 17 GM PACK PO SCH ×2 (08:36→17:05)
--- NOTE | 2017-10-07 08:46 | GI Progress Note ---
Subjective - Review of Systems Service Date: 10/07/17 Subjective: Transferred to ICU 2/2 respiratory disress, intubated. Objective - Results Result Diagrams: 10/07/17 05:00 10/07/17 05:00 Recent Labs: Laboratory Last Values WBC 16.7 Th/cmm (4.8-10.8) H D 10/07/17 05:00 RBC 3.25 Mil/cmm (3.80-5.80) L 10/07/17 05:00 Hgb 10.3 gm/dL (12-16) L 10/07/17 05:00 Hct 30.4 % (41.0-60) L 10/07/17 05:00 MCV 93.7 fl (80-99) 10/07/17 05:00 MCH 31.7 pg (27.0-31.0) H 10/07/17 05:00 MCHC Differential 33.8 pg (28.0-36.0) 10/07/17 05:00 RDW 16.5 % (11.5-20.0) 10/07/17 05:00 Plt Count 132 Th/cmm (150-400) L 10/07/17 05:00 MPV 13.0 fl 10/07/17 05:00 Neutrophils % 65.4 % (40.0-80.0) 10/06/17 05:58 Band Neutrophils % 5 % (0-10) 10/07/17 05:00 Lymphocytes % 14.6 % (20.0-50.0) L 10/06/17 05:58 Monocytes % 7.1 % (2.0-10.0) 10/06/17 05:58 Eosinophils % 12.7 % (0.0-5.0) H 10/06/17 05:58 Basophils % 0.2 % (0.0-2.0) 10/06/17 05:58 Neutrophils (Manual) 89 % (40-80) H 10/07/17 05:00 Lymphocytes 3 % (20-50) L 10/07/17 05:00 Monocytes 3 % (2-10) 10/07/17 05:00 Platelet Estimate ADEQUATE (NORMAL) 10/07/17 05:00 PT 10.7 SECONDS (9.5-11.5) 10/02/17 19:43 INR 1.03 (0.5-1.4) 10/02/17 19:43 PTT (Actin FS) 27.6 SECONDS (26.0-38.0) 10/02/17 19:43 Specimen Source arterial 10/07/17 03:25 Sample Site RB 10/07/17 03:25 pH 7.22 (7.35-7.45) L* 10/07/17 03:25 pCO2 60.0 mmHg (35.0-45.0) H* 10/07/17 03:25 pO2 120.0 mmHg (80.0-100.0) H 10/07/17 03:25 HCO3 21.9 mEq/L (20.0-26.0) 10/07/17 03:25 Base Excess -3.9 mEq/L (-3.0-3.0) L 10/07/17 03:25 O2 Saturation 98.0 % (92.0-100.0) 10/07/17 03:25 Ramiro Test pos 10/07/17 03:25 Vent Rate n/a 10/07/17 03:25 Inspired O2 40 10/07/17 03:25 Tidal Volume n/a 10/07/17 03:25 PEEP n/a 10/07/17 03:25 Pressure (ins/psv/peep) n/a 10/07/17 03:25 Critical Value dv 10/07/17 03:25 Sodium 145 mEq/L (136-145) 10/07/17 05:00 Potassium 3.9 mEq/L (3.5-5.1) 10/07/17 05:00 Chloride 116 mEq/L (98-107) H 10/07/17 05:00 Carbon Dioxide 22.0 mEq/L (21.0-31.0) 10/07/17 05:00 Anion Gap 10.9 (7.0-16.0) 10/07/17 05:00 BUN 37 mg/dL (7-25) H 10/07/17 05:00 Creatinine 1.2 mg/dL (0.7-1.3) 10/07/17 05:00 Est GFR ( Amer) TNP 10/07/17 05:00 Est GFR (Non-Af Amer) TNP 10/07/17 05:00 BUN/Creatinine Ratio 30.8 10/07/17 05:00 Glucose 164 mg/dL (70-105) H 10/07/17 05:00 Whole Bld Lactic Acid 1.41 mmol/L (0.60-1.99) 10/02/17 19:43 Calcium 8.4 mg/dL (8.6-10.3) L 10/07/17 05:00 Urine Source CLEAN C 10/04/17 10:00 Urine Color YELLOW 10/04/17 10:00 Urine Clarity HAZY (CLEAR) 10/04/17 10:00 Urine pH 6.5 (4.6 - 8.0) 10/04/17 10:00 Ur Specific [place] 1.020 (1.005-1.030) 10/04/17 10:00 Urine Protein TRACE mg/dL (NEGATIVE) 10/04/17 10:00 Urine Glucose (UA) NEGATIVE mg/dL (NEGATIVE) 10/04/17 10:00 Urine Ketones NEGATIVE mg/dL (NEGATIVE) 10/04/17 10:00 Urine Blood NEGATIVE (NEGATIVE) 10/04/17 10:00 Urine Nitrate NEGATIVE (NEGATIVE) 10/04/17 10:00 Urine Bilirubin NEGATIVE (NEGATIVE) 10/04/17 10:00 Urine Urobilinogen 4.0 E.U./dL (0.2 - 1.0) H 10/04/17 10:00 Ur Leukocyte Esterase NEGATIVE (NEGATIVE) 10/04/17 10:00 Urine RBC 0-2 /hpf (0-5) H 10/04/17 10:00 Urine WBC 2-5 /hpf (0-5) H 10/04/17 10:00 Ur Epithelial Cells OCCASIONAL /lpf (FEW) 10/04/17 10:00 Urine Bacteria FEW /hpf (NONE SEEN) 10/04/17 10:00 Influenza A (Rapid) NEG FOR INF A 10/04/17 02:53 Influenza B (Rapid) NEG FOR INF B 10/04/17 02:53 - Physical Exam Vitals and I&O: Vital Signs Temp 97.0 F 10/07/17 04:00 Pulse 70 10/07/17 08:35 Resp 16 10/07/17 08:00 BP 125/61 10/07/17 08:35 Pulse Ox 100 10/07/17 07:14 Intake & Output 10/06/17 10/07/17 10/07/17 18:59 06:59 18:59 Intake Total 100 1140 Balance 100 1140 Weight (lbs) 56.245 kg Intake: Intake, IV Amount 100 1050 D5-0.45NS 1,000 ml @ 75 1000 mls/hr IV .[id number] [facility] Rx #:[id number] Piperacillin Sodium/ 100 50 Tazobact 2.25 gm In Sodium Chloride 0.9% 50 ml @ 100 mls/hr IV Q6HR [facility] Rx#:[id number] Oral 0 Tube Feeding 40 Other 50 Other: # Voids 2 # Bowel Movements 2 Stool Characteristics Soft Soft Soft Brown Formed Formed Active Medications: Current Medications Acetaminophen (Tylenol) 650 mg GT Q6HR PRN PRN Reason: Pain or Fever >101 Stop: 12/01/17 21:40 Last Admin: 10/06/17 16:05 Dose: 650 mg Albuterol/Ipratropium (Duoneb Neb) 3 ml HHN Q4HRT PRN PRN Reason: Wheezing Stop: 12/05/17 15:10 Albuterol/Ipratropium (Duoneb Neb) 3 ml HHN Q4HRT [facility] Stop: 12/05/17 15:14 Last Admin: 10/07/17 07:14 Dose: 3 ml Aspirin (Aspirin Chewable) 81 mg GT DAILY [facility] Stop: 12/02/17 08:59 Last Admin: 10/07/17 08:35 Dose: 81 mg Bisacodyl (Dulcolax 10 Mg Supp) 10 mg RC DAILY PRN PRN Reason: Constipation Stop: 12/01/17 21:40 Heparin Sodium (Porcine) (Heparin) 5,000 units SUBQ Q12H [facility] Stop: 12/01/17 21:44 Last Admin: 10/06/17 23:53 Dose: Not Given Hydralazine HCl (Apresoline) 25 mg GT TID PRN PRN Reason: SBP > 150 Stop: 12/01/17 21:40 Potassium Chloride 40 meq/Lidocaine HCl 25 mg/ Sodium Chloride 272.5 mls @ 68 mls/hr IV DAILY PRN PRN Reason: k level less than 3.2 Stop: 12/01/17 21:46 Magnesium Sulfate (Magnesium Sulfate Premix) 2 gm in 50 mls @ 25 mls/hr IV DAILY PRN PRN Reason: Magnesium level less than 1.6 Stop: 12/01/17 21:46 Piperacillin Sod/Tazobactam (Sod 2.25 gm/ Sodium Chloride) 50 mls @ 100 mls/hr IV Q6HR [facility] Stop: 12/02/17 00:00 Last Admin: 10/07/17 05:58 Dose: 100 mls/hr Dextrose/Sodium Chloride (D5-0.45ns) 1,000 mls @ 75 mls/hr IV .[id number] [facility] Stop: 12/02/17 09:14 Last Admin: 10/07/17 05:56 Dose: 75 mls/hr Lactobacillus Rhamnosus (Culturelle 15b) 1 each PO DAILY [facility] Stop: 12/05/17 08:59 Last Admin: 10/07/17 08:34 Dose: 1 each Levothyroxine Sodium (Synthroid) 0.05 mg GT QDAC [facility] Stop: 12/02/17 07:29 Last Admin: 10/07/17 08:34 Dose: 0.05 mg Lorazepam (Ativan) 2 mg IVP Q4HR PRN; Protocol PRN Reason: Anxiety Stop: 12/01/17 21:46 Last Admin: 10/06/17 08:46 Dose: 2 mg Magnesium Hydroxide (Milk Of Magnesia) 30 ml GT HS PRN PRN Reason: Constipation Stop: 12/01/17 21:40 Methylprednisolone Sodium Succinate (Solu-Medrol) 40 mg IVP Q6HR [facility] Stop: 12/05/17 17:59 Last Admin: 10/07/17 05:58 Dose: 40 mg Metoprolol Tartrate (Lopressor) 25 mg GT BID [facility] Stop: 12/02/17 08:59 Last Admin: 10/07/17 08:35 Dose: 25 mg Miscellaneous (Probiotic Screen) 1 ea MC PRN PRN PRN Reason: PROTOCOL Stop: 12/04/17 09:59 Morphine Sulfate (Morphine) 2 mg IVP Q4H PRN PRN Reason: moderate pain Stop: 12/01/17 21:46 Ondansetron HCl (Zofran) 4 mg IVP Q6H PRN PRN Reason: Nausea / Vomiting Stop: 12/01/17 21:46 Pantoprazole Sodium (Protonix) 40 mg IVP BID [facility] Stop: 12/05/17 16:59 Last Admin: 10/07/17 08:34 Dose: 40 mg Polyethylene Glycol (Miralax) 17 gm PO BID [facility] Stop: 12/04/17 10:14 Last Admin: 10/07/17 08:36 Dose: 17 gm Potassium Chloride (Potassium Chloride Elixir) 40 meq PO DAILY PRN PRN Reason: k level less than 3.5 Stop: 12/03/17 07:20 Last Admin: 10/06/17 08:47 Dose: 40 meq Sodium Phosphate (Fleet Enema) 135 ml RC Q48H PRN PRN Reason: Constipation Stop: 12/01/17 21:40 Zolpidem Tartrate (Ambien) 10 mg PO HS PRN PRN Reason: Insomnia Stop: 12/01/17 21:46 General: Alert HEENT: Atraumatic, PERRLA, Other (intubated, ET tube in plce) Neck: Supple Cardiovascular: Regular rate Lungs: Clear to auscultation Abdomen: Bowel sounds, Soft, Other (mild abd distension. G tube site c/d/i) Assessment/Plan - Assessment Assessment: # Fecal impaction # Abd distension # Possible pneumonia CT and KUB show large fecal impaction. Now s/p several enemas and golytely bowel prep and is having liquid stool. KUB on 10/04 shows some improvement although still large amount of stool. # Respiratory failure, possible pneumonia Transferred to ICU 10/06 for increased respiratory distress, and now intubated. Plan: - cont with daily tap water enemas - KUB today to track progress of fecal impaction - cont miralax bid for maintenance - management of pneumonia as per primary
--- NOTE | 2017-10-07 09:42 | Diagnostic Imaging Report ---
Exam: KUB of the abdomen. HISTORY: Fecal impaction. Findings: Portable supine examination of the abdomen at 0902 hours was reviewed. The study demonstrates severe fecal impaction the rectosigmoid junction and rectum. Proximal distention of large bowel with air appreciated. Gastrostomy tube is noted. IMPRESSION: severe fecal impaction.
--- NOTE | 2017-10-07 22:44 | Consultation ---
Consult Note - Consult Note Service Date: 10/07/17 Referring Physician: Ritchie Urbina Consult Note: PHYSICIAN Consultation Note: Date of Admission: 10/02/17 Purpose of Consultation: sepsis. aspiration pneumonia./ Chief Complaint:Patient BOB ZEPEDA was admitted to location Intensive Care Unit with ASPIRATION PNA. History of Present Illness: 87 year old male with history of Dementia, HTN, COPD admitted on 10/02/2017 for cough and congestion. On initial evaluation patient was afebrile with temperature 98.2F and WBC count 13,700. Influenza . Screen was negative sepsis was diagnosed and started on Zosyn. He did well. However, he went into respiratory failure and required intubation and ventilatory support last night. Infectious disease consultation was called. Meanwhile, sepsis workup was performed. Chest x-ray revealed aspiration pneumonia. Past Medical History: Dementia, HTN, COPD Diagnoses SEPSIS, UNSPECIFIED ORGANISM (10/02/17) HYPEROSMOLALITY AND HYPERNATREMIA (10/02/17) DEMENTIA IN OTH DISEASES CLASSD [id number] W BEHAVIORAL DISTURB (10/02/17) ALZHEIMER'S DISEASE, UNSPECIFIED (10/02/17) METABOLIC ENCEPHALOPATHY (10/02/17) ESSENTIAL (PRIMARY) HYPERTENSION (10/02/17) PNEUMONIA, UNSPECIFIED ORGANISM (10/02/17) CHRONIC OBSTRUCTIVE PULMONARY DISEASE, UNSPECIFIED (10/02/17) FECAL IMPACTION (10/02/17) DYSPHAGIA, UNSPECIFIED (10/02/17) FEVER, UNSPECIFIED (10/02/17) GASTROSTOMY STATUS (10/02/17) Allergies Allergy/AdvReac Type Severity Reaction Status Date / Time No Known Allergies Allergy Verified 10/02/17 19:21 Vital Signs Temp 96.8 F 10/07/17 20:00 Pulse 67 10/07/17 22:00 Resp 14 10/07/17 22:00 BP 95/48 10/07/17 22:00 Pulse Ox 100 10/07/17 22:00 Intake & Output 10/07/17 10/07/17 10/08/17 06:59 18:59 06:59 Intake Total 1190 250 50 Output Total 300 Balance 1190 -50 50 Weight (lbs) 56.245 kg 56.245 kg Intake: Intake, IV Amount 1100 50 50 D5-0.45NS 1,000 ml @ 75 1000 mls/hr IV .[id number] [facility] Rx #:[id number] Piperacillin Sodium/ 100 50 50 Tazobact 2.25 gm In Sodium Chloride 0.9% 50 ml @ 100 mls/hr IV Q6HR [facility] Rx#:[id number] Oral 0 Tube Feeding 40 Other 50 200 Output: Urine 300 Other: # Voids 2 2 # Bowel Movements 2 2 Stool Characteristics Soft Soft Formed Formed Laboratory Results - last 24 hr 10/07/17 10/07/17 10/07/17 03:25 05:00 05:00 WBC 16.7 H D RBC 3.25 L Hgb 10.3 L Hct 30.4 L MCV 93.7 MCH 31.7 H MCHC Differential 33.8 RDW 16.5 Plt Count 132 L MPV 13.0 Band Neutrophils % 5 Neutrophils (Manual) 89 H Lymphocytes 3 L Monocytes 3 Platelet Estimate ADEQUATE Specimen Source arterial Sample Site RB pH 7.22 L* pCO2 60.0 H* pO2 120.0 H HCO3 21.9 Base Excess -3.9 L O2 Saturation 98.0 Ramiro Test pos Vent Rate n/a Inspired O2 40 Tidal Volume n/a PEEP n/a Pressure (ins/psv/peep) n/a Critical Value dv Sodium 145 Potassium 3.9 Chloride 116 H Carbon Dioxide 22.0 Anion Gap 10.9 BUN 37 H Creatinine 1.2 Est GFR ( Amer) TNP Est GFR (Non-Af Amer) TNP BUN/Creatinine Ratio 30.8 Glucose 164 H Whole Bld Lactic Acid Calcium 8.4 L 10/07/17 10/07/17 10:54 16:26 WBC RBC Hgb Hct MCV MCH MCHC Differential RDW Plt Count MPV Band Neutrophils % Neutrophils (Manual) Lymphocytes Monocytes Platelet Estimate Specimen Source Arterial Sample Site LB pH 7.40 pCO2 33.0 L pO2 124.0 H HCO3 22.2 Base Excess -3.6 L O2 Saturation 99.0 Ramiro Test Vent Rate 14 Inspired O2 30 Tidal Volume 500 PEEP 5 Pressure (ins/psv/peep) Critical Value PW Sodium Potassium Chloride Carbon Dioxide Anion Gap BUN Creatinine Est GFR ( Amer) Est GFR (Non-Af Amer) BUN/Creatinine Ratio Glucose Whole Bld Lactic Acid 1.94 Calcium Home Medication Medication Instructions Recorded Type Acetaminophen [Tylenol Extra 1,000 mg GT Q8H PRN 10/02/17 History Strength] Acetaminophen [Tylenol] 650 mg GT DAILY 10/02/17 History Acetaminophen [Tylenol] 650 mg GT Q6HR PRN 10/02/17 History Ascorbic Acid [Vitamin C] 500 mg GT DAILY 10/02/17 History Aspirin [Aspirin Chewable] 81 mg GT DAILY 10/02/17 History Bisacodyl [Dulcolax 10 Mg Supp] 10 mg RC DAILY PRN 10/02/17 History Cranberry 425 mg GT DAILY 10/02/17 History Docusate Sodium [Dok] 250 mg GT BID 10/02/17 History Docusate Sodium [Dok] 250 mg GT BID PRN 10/02/17 History Fleet Enema [Fleet Enema] 135 ml RC Q48H PRN 10/02/17 History Heparin Sodium [Heparin] 5,000 units SQ Q12H 10/02/17 History Hydralazine [Apresoline*] 25 mg GT TID PRN 10/02/17 History Levothyroxine [Synthroid] 0.05 mg GT QDAC 10/02/17 History Magnesium Hydroxide [Milk of 30 ml GT HS PRN 10/02/17 History Magnesia] Metoprolol Tartrate 25 mg GT BID 10/02/17 History Multivit &Minerals/Ferrous Fum 5 ml GT DAILY 10/02/17 History [Multivitamin Liquid] Polyethylene Glycol 3350 [Miralax] 17 gm GT DAILY 10/02/17 History Zinc Sulfate [Zinc Sulfate 111 1 tab GT DAILY 10/02/17 History mg-50 mg] Zolpidem Tartrate 5 mg GT HS PRN 10/02/17 History Current Medications Generic Name Dose Route Start Last Admin [facility] Reason Stop Dose Admin Acetaminophen 650 mg 10/02/17 21:41 10/06/17 16:05 Tylenol GT 12/01/17 21:40 650 mg Q6HR PRN Administration Pain or Fever >101 Albuterol/Ipratropium 3 ml 10/06/17 15:11 Duoneb Neb [facility] 12/05/17 15:10 Q4HRT PRN Wheezing Albuterol/Ipratropium 3 ml 10/06/17 15:15 10/07/17 18:35 Duoneb Neb [facility] 12/05/17 15:14 3 ml Q4HRT [facility] Administration Aspirin 81 mg 10/03/17 09:00 10/07/17 08:35 Aspirin Chewable GT 12/02/17 08:59 81 mg DAILY [facility] Administration Bisacodyl 10 mg 10/02/17 21:41 Dulcolax 10 Mg Supp [facility] 12/01/17 21:40 DAILY PRN Constipation Chlorhexidine Gluconate 15 ml 10/07/17 22:00 Peridex MM 12/06/17 21:59 0800,2200 [facility] Heparin Sodium (Porcine) 5,000 units 10/02/17 21:45 10/07/17 21:39 Heparin SUBQ 12/01/17 21:44 Not Given Q12H [facility] Hydralazine HCl 25 mg 10/02/17 21:41 Apresoline GT 12/01/17 21:40 TID PRN SBP > 150 Potassium Chloride 40 meq/ 272.5 mls @ 68 mls/hr 10/02/17 21:47 Lidocaine HCl 25 mg/ Sodium IV 12/01/17 21:46 Chloride DAILY PRN k level less than 3.2 Magnesium Sulfate 2 gm in 50 mls @ 25 mls/hr 10/02/17 21:47 Magnesium Sulfate Premix IV 12/01/17 21:46 DAILY PRN Magnesium level less than 1.6 Piperacillin Sod/Tazobactam 50 mls @ 100 mls/hr 10/03/17 00:00 10/07/17 19:50 Sod 2.25 gm/ Sodium Chloride IV 12/02/17 00:00 Infused Q6HR [facility] Infusion Dextrose/Sodium Chloride 1,000 mls @ 75 mls/hr 10/03/17 09:15 10/07/17 05:56 D5-0.45ns IV 12/02/17 09:14 75 mls/hr .[id number] [facility] Administration Lactobacillus Rhamnosus 1 each 10/06/17 09:00 10/07/17 08:34 Culturelle 15b PO 12/05/17 08:59 1 each DAILY [facility] Administration Levothyroxine Sodium 0.05 mg 10/03/17 07:30 10/07/17 08:34 Synthroid GT 12/02/17 07:29 0.05 mg QDAC [facility] Administration Lorazepam 2 mg 10/02/17 21:47 10/06/17 08:46 Ativan IVP 12/01/17 21:46 2 mg Q4HR PRN Administration Anxiety Protocol Magnesium Hydroxide 30 ml 10/02/17 21:41 Milk Of Magnesia GT 12/01/17 21:40 HS PRN Constipation Methylprednisolone Sodium Succinate 40 mg 10/06/17 18:00 10/07/17 19:18 Solu-Medrol IVP 12/05/17 17:59 40 mg Q6HR [facility] Administration Metoprolol Tartrate 25 mg 10/03/17 09:00 10/07/17 17:05 Lopressor GT 12/02/17 08:59 Not Given BID [facility] Miscellaneous 1 ea 10/05/17 10:00 Probiotic Screen [facility] 12/04/17 09:59 PRN PRN PROTOCOL Morphine Sulfate 2 mg 10/02/17 21:47 Morphine IVP 12/01/17 21:46 Q4H PRN moderate pain Ondansetron HCl 4 mg 10/02/17 21:47 Zofran IVP 12/01/17 21:46 Q6H PRN Nausea / Vomiting Pantoprazole Sodium 40 mg 10/06/17 17:00 10/07/17 17:05 Protonix IVP 12/05/17 16:59 40 mg BID [facility] Administration Polyethylene Glycol 17 gm 10/05/17 10:15 10/07/17 17:05 Miralax PO 12/04/17 10:14 17 gm BID [facility] Administration Potassium Chloride 40 meq 10/06/17 08:06 10/06/17 08:47 Potassium Chloride Elixir PO 12/03/17 07:20 40 meq DAILY PRN Administration k level less than 3.5 Sodium Phosphate 135 ml 10/02/17 21:41 Fleet Enema RC 12/01/17 21:40 Q48H PRN Constipation Zolpidem Tartrate 10 mg 10/02/17 21:47 Ambien PO 12/01/17 21:46 HS PRN Insomnia Review of Systems: A 12 point ROS was reviewed with the pertinent positive and negatives noted in the HPI. Unable to give any history. His intubated. Social History Smoking Status Unknown if ever smoked Drug Use No Alcohol Use No Family Medical History Family Medical History Start: 10/02/17 21: 49 Freq: ONCE Status: Active Document 10/02/17 22:39 MARY (Rec: 10/02/17 22:39 MARY [id number]) Family Medical History Mother History Unknown Yes Physical Exam: General: Comfortable, well-nourished well-developed. HEENT: Head: Normocephalic, atraumatic. Oral cavity: Moist, pink tongue. Eyes pallor is present icterus. Pupil PERRLA. Neck: Supple, no JVD. Trach and midline. Cardio: S1 and S2 within normal with regular rhythm. Respiratory: Vesicular breath sound, crackles present. Abdominal: Soft, nontender, nondistended bowel sounds present. Genital/Urinary: Deferred. Extremities: No cyanosis, no clubbing, no edema. Pulses are palpable in all 4 limbs. Neurological: Unresponsive,. Assessment: 1. Leukocytosis, respiratory failure, sepsis. 2. Aspiration pneumonia versus healthcare facility associated pneumonia. 3. Dementia. 4. COPD and COPD exacerbation. 5. Hypertension. 6. Acute respiratory failure on ventilator. Plan: Will change Zosyn to meropenem and vancomycin. Sepsis workup. Thank you, Dr. Urbina, for involving me in taking care of this patient. Signed, Dakotah Langley M.D. [id number]
[2017-10-07] MEDS ORDERED: Meropenem 500 MG in Sodium Chloride 0.9% 100 ML IV ONE (22:57)
[2017-10-07] MEDS: Chlorhexidine Gluconate 0.12% 480mL Bottle MM SCH (23:18)
--- NOTE | 2017-10-07 23:30 | Consultation ---
DATE OF CONSULTATION: 10/07/[address] Urbina. Thank you very much Dr. Urbina for this consultation. HISTORY OF PRESENT ILLNESS: The patient is an 87-year-old male with history of dementia, dysphagia, senior care resident, presented with cough, congestion and shortness of breath, was admitted for further treatment and management. The patient appears to have developed worsening shortness of breath and hypoxemia, required to be intubated. The patient is now intubated and sedated. He is unable to give any other history at this time. REVIEW OF SYSTEMS: Unable to obtain because of the patient's condition. He does have history documented as per H and P for COPD and hypertension. PHYSICAL EXAMINATION: VITAL SIGNS: Temperature 96.8, pulse is 73, respirations 22, blood pressure 125/61 and saturation 100%. HEENT: Atraumatic and normocephalic. Pupils are equal and reactive to light and accommodation. Ears, nose and throat normal. NECK: Supple. No JVD. CHEST: There is rhonchi in bases. Fair air entry. HEART: Regular rate and rhythm. EXTREMITIES: No edema. LABORATORY DATA: WBC 16.7, hemoglobin 10.3, hematocrit 30.4 and platelets is 132. ABGs, last one pH 7.40, better from 7.22, CO2 33, pO2 of 124, bicarbonate 22, saturation is 99%. Sodium 145, potassium 3.9, BUN is 37 and creatinine 1.2. DIAGNOSTIC DATA: Chest x-ray, some COPD changes, minimal interstitial infiltrates and ET tube in good placement. IMPRESSION: An 87-year-old male with: 1. Respiratory failure. 2. Possible pneumonia. 3. Dysphagia. 4. CO2 retention and possible underlying chronic obstructive pulmonary disease. PLAN: 1. IV antibiotics. 2. Nebulizer treatment. 3. Ventilator support. 4. The patient is already on steroids. We will start weaning once patient is more stabilized. I will follow the patient with you. Thank you very much for this consultation. JOB# [id number] JYOTI
[2017-10-08] MEDS: Albuterol/Ipratropium Neb 3 ML AERS HHN SCH ×6 (03:27→23:03)
[2017-10-08 04:58] LABS: LYMPHOCYTE ABSOLUTE 0.7 Th/cmm (1.5-3.0); MEAN CELL VOLUME 92.6 fl (80-99); MEAN CORPUSCULAR HEMOGLOBIN 31.8 pg (27.0-31.0); MEAN CORPUSCULAR HGB CONC 34.4 pg (28.0-36.0); MEAN PLATELET VOLUME 10.2 fl; MONOCYTE ABSOLUTE 0.5 Th/cmm (0.3-1.0); NEUTROPHILE ABSOLUTE 13.2 Th/cmm (1.8-8.0); RED BLOOD COUNT 2.43 Mil/cmm (3.80-5.80)
[2017-10-08 05:09] LABS: ANION GAP 10.3 (7.0-16.0); BUN - UREA NITROGEN 42 mg/dL (7-25); CALCIUM SERUM 8.1 mg/dL (8.6-10.3); CARBON DIOXIDE 21.8 mEq/L (21.0-31.0); CHLORIDE 114 mEq/L (98-107); GLUCOSE 124 mg/dL (70-105); POTASSIUM SERUM 3.1 mEq/L (3.5-5.1); SODIUM SERUM 143 mEq/L (136-145)
[2017-10-08 05:13] LABS: WHITE BLOOD COUNT 14.4 Th/cmm (4.8-10.8)
[2017-10-08 05:16] LABS: HEMATOCRIT 22.5 % (41.0-60); HEMOGLOBIN 7.7 gm/dL (12-16); PLATELET COUNT 96 Th/cmm (150-400)
[2017-10-08] MEDS: Meropenem 500 MG in Sodium Chloride 0.9% 100 ML IV SCH ×3 (05:43→20:47)
[2017-10-08] MEDS: methylPREDNISolone SS 40 mg Vial IVP SCH ×3 (05:44→18:00)
[2017-10-08 06:29] LABS: BAND NEUTROPHILE 4 % (0-10); LYMPHOCYTE 7 % (20-50); MONOCYTE 2 % (2-10); NEUTROPHILS 87 % (40-80); TOTAL CELLS COUNTED 100
[2017-10-08 06:30] LABS: HYPOCHROMIA 1+; PLATELET ESTIMATE DECREASED PLATELETS (NORMAL); POIKILOCYTOSIS 1+
[2017-10-08] MEDS: Levothyroxine 0.05 Mg Tab GT SCH (06:39)
[2017-10-08] MEDS: Chlorhexidine Gluconate 0.12% 480mL Bottle MM SCH ×2 (08:35→22:26)
[2017-10-08] MEDS: POLYETHYLENE GLYCOL 3350 17 GM PACK PO SCH ×2 (08:35→16:32)
[2017-10-08] MEDS: Lactobacillus Rhamnosus GG 15 Billion CFU CAP.SPRINK PO SCH (08:35)
--- NOTE | 2017-10-08 08:47 | Diagnostic Imaging Report ---
Exam: Chest x-ray. HISTORY shortness of breath. Findings: Portable examination of the chest at 0750 hours reviewed the study compared to prior exam of the early. The study again demonstrates endotracheal tube unchanged position. Mediastinal structures midline the heart is not enlarged. No acute pulmonic infiltrates or effusions are noted. Bony thorax is intact. IMPRESSION unchanged upper prior examination day earlier, no active disease.
--- NOTE | 2017-10-08 08:50 | GI Progress Note ---
Subjective - Review of Systems Service Date: 10/08/17 Subjective: had BM overnight as per RN report. Objective - Results Result Diagrams: 10/08/17 04:15 10/08/17 04:15 Recent Labs: Laboratory Last Values WBC 14.4 Th/cmm (4.8-10.8) H 10/08/17 04:15 RBC 2.43 Mil/cmm (3.80-5.80) L 10/08/17 04:15 Hgb 7.7 gm/dL (12-16) L* D 10/08/17 04:15 Hct 22.5 % (41.0-60) L D 10/08/17 04:15 MCV 92.6 fl (80-99) 10/08/17 04:15 MCH 31.8 pg (27.0-31.0) H 10/08/17 04:15 MCHC Differential 34.4 pg (28.0-36.0) 10/08/17 04:15 RDW 16.0 % (11.5-20.0) 10/08/17 04:15 Plt Count 96 Th/cmm (150-400) L D 10/08/17 04:15 MPV 10.2 fl 10/08/17 04:15 Neutrophils % 65.4 % (40.0-80.0) 10/06/17 05:58 Band Neutrophils % 4 % (0-10) 10/08/17 04:15 Lymphocytes % 14.6 % (20.0-50.0) L 10/06/17 05:58 Monocytes % 7.1 % (2.0-10.0) 10/06/17 05:58 Eosinophils % 12.7 % (0.0-5.0) H 10/06/17 05:58 Basophils % 0.2 % (0.0-2.0) 10/06/17 05:58 Neutrophils (Manual) 87 % (40-80) H 10/08/17 04:15 Lymphocytes 7 % (20-50) L 10/08/17 04:15 Monocytes 2 % (2-10) 10/08/17 04:15 Hypochromia 1+ 10/08/17 04:15 Platelet Estimate DECREASED PLATELETS (NORMAL) 10/08/17 04:15 Poikilocytosis 1+ 10/08/17 04:15 Macrocytosis 1+ 10/08/17 04:15 PT 10.7 SECONDS (9.5-11.5) 10/02/17 19:43 INR 1.03 (0.5-1.4) 10/02/17 19:43 PTT (Actin FS) 27.6 SECONDS (26.0-38.0) 10/02/17 19:43 Specimen Source Arterial 10/07/17 10:54 Sample Site LB 10/07/17 10:54 pH 7.40 (7.35-7.45) 10/07/17 10:54 pCO2 33.0 mmHg (35.0-45.0) L 10/07/17 10:54 pO2 124.0 mmHg (80.0-100.0) H 10/07/17 10:54 HCO3 22.2 mEq/L (20.0-26.0) 10/07/17 10:54 Base Excess -3.6 mEq/L (-3.0-3.0) L 10/07/17 10:54 O2 Saturation 99.0 % (92.0-100.0) 10/07/17 10:54 Ramiro Test pos 10/07/17 03:25 Vent Rate 14 10/07/17 10:54 Inspired O2 30 10/07/17 10:54 Tidal Volume 500 10/07/17 10:54 PEEP 5 10/07/17 10:54 Pressure (ins/psv/peep) n/a 10/07/17 03:25 Critical Value PW 10/07/17 10:54 Sodium 143 mEq/L (136-145) 10/08/17 04:15 Potassium 3.1 mEq/L (3.5-5.1) L 10/08/17 04:15 Chloride 114 mEq/L (98-107) H 10/08/17 04:15 Carbon Dioxide 21.8 mEq/L (21.0-31.0) 10/08/17 04:15 Anion Gap 10.3 (7.0-16.0) 10/08/17 04:15 BUN 42 mg/dL (7-25) H 10/08/17 04:15 Creatinine 1.0 mg/dL (0.7-1.3) 10/08/17 04:15 Est GFR ( Amer) TNP 10/08/17 04:15 Est GFR (Non-Af Amer) TNP 10/08/17 04:15 BUN/Creatinine Ratio 42.0 10/08/17 04:15 Glucose 124 mg/dL (70-105) H 10/08/17 04:15 Whole Bld Lactic Acid 1.94 mmol/L (0.60-1.99) 10/07/17 16:26 Calcium 8.1 mg/dL (8.6-10.3) L 10/08/17 04:15 Urine Source CLEAN C 10/04/17 10:00 Urine Color YELLOW 10/04/17 10:00 Urine Clarity HAZY (CLEAR) 10/04/17 10:00 Urine pH 6.5 (4.6 - 8.0) 10/04/17 10:00 Ur Specific [place] 1.020 (1.005-1.030) 10/04/17 10:00 Urine Protein TRACE mg/dL (NEGATIVE) 10/04/17 10:00 Urine Glucose (UA) NEGATIVE mg/dL (NEGATIVE) 10/04/17 10:00 Urine Ketones NEGATIVE mg/dL (NEGATIVE) 10/04/17 10:00 Urine Blood NEGATIVE (NEGATIVE) 10/04/17 10:00 Urine Nitrate NEGATIVE (NEGATIVE) 10/04/17 10:00 Urine Bilirubin NEGATIVE (NEGATIVE) 10/04/17 10:00 Urine Urobilinogen 4.0 E.U./dL (0.2 - 1.0) H 10/04/17 10:00 Ur Leukocyte Esterase NEGATIVE (NEGATIVE) 10/04/17 10:00 Urine RBC 0-2 /hpf (0-5) H 10/04/17 10:00 Urine WBC 2-5 /hpf (0-5) H 10/04/17 10:00 Ur Epithelial Cells OCCASIONAL /lpf (FEW) 10/04/17 10:00 Urine Bacteria FEW /hpf (NONE SEEN) 10/04/17 10:00 Influenza A (Rapid) NEG FOR INF A 10/04/17 02:53 Influenza B (Rapid) NEG FOR INF B 10/04/17 02:53 - Physical Exam Vitals and I&O: Vital Signs Temp 96.4 F 10/08/17 04:00 Pulse 70 10/08/17 07:26 Resp 14 10/08/17 06:00 BP 93/42 10/08/17 06:00 Pulse Ox 100 10/08/17 07:26 Intake & Output 10/07/17 10/08/17 10/08/17 18:59 06:59 18:59 Intake Total 250 250 Output Total 300 400 Balance -50 -150 Weight (lbs) 56.245 kg 56.245 kg Intake: Intake, IV Amount 50 150 Piperacillin Sodium/ 50 50 Tazobact 2.25 gm In Sodium Chloride 0.9% 50 ml @ 100 mls/hr IV Q6HR [facility] Rx#:[id number] Other 200 100 Output: Urine 300 400 Other: # Voids 2 # Bowel Movements 2 1 Stool Characteristics Soft Formed Active Medications: Current Medications Acetaminophen (Tylenol) 650 mg GT Q6HR PRN PRN Reason: Pain or Fever >101 Stop: 12/01/17 21:40 Last Admin: 10/06/17 16:05 Dose: 650 mg Albuterol/Ipratropium (Duoneb Neb) 3 ml HHN Q4HRT PRN PRN Reason: Wheezing Stop: 12/05/17 15:10 Albuterol/Ipratropium (Duoneb Neb) 3 ml HHN Q4HRT [facility] Stop: 12/05/17 15:14 Last Admin: 10/08/17 07:26 Dose: 3 ml Aspirin (Aspirin Chewable) 81 mg GT DAILY [facility] Stop: 12/02/17 08:59 Last Admin: 10/07/17 08:35 Dose: 81 mg Bisacodyl (Dulcolax 10 Mg Supp) 10 mg RC DAILY PRN PRN Reason: Constipation Stop: 12/01/17 21:40 Chlorhexidine Gluconate (Peridex) 15 ml MM 0800,2200 [facility] Stop: 12/06/17 21:59 Last Admin: 10/08/17 08:35 Dose: 15 ml Heparin Sodium (Porcine) (Heparin) 5,000 units SUBQ Q12H [facility] Stop: 12/01/17 21:44 Last Admin: 10/07/17 21:39 Dose: Not Given Hydralazine HCl (Apresoline) 25 mg GT TID PRN PRN Reason: SBP > 150 Stop: 12/01/17 21:40 Potassium Chloride 40 meq/Lidocaine HCl 25 mg/ Sodium Chloride 272.5 mls @ 68 mls/hr IV DAILY PRN PRN Reason: k level less than 3.2 Stop: 12/01/17 21:46 Last Admin: 10/08/17 08:39 Dose: 68 mls/hr Magnesium Sulfate (Magnesium Sulfate Premix) 2 gm in 50 mls @ 25 mls/hr IV DAILY PRN PRN Reason: Magnesium level less than 1.6 Stop: 12/01/17 21:46 Dextrose/Sodium Chloride (D5-0.45ns) 1,000 mls @ 75 mls/hr IV .[id number] [facility] Stop: 12/02/17 09:14 Last Admin: 10/07/17 05:56 Dose: 75 mls/hr Meropenem 500 mg/ Sodium (Chloride) 100 mls @ 100 mls/hr IV Q8HR [facility] Stop: 12/07/17 04:59 Last Admin: 10/08/17 05:43 Dose: 100 mls/hr Vancomycin HCl 0.75 gm/ Sodium (Chloride) 250 mls @ 165 mls/hr IV Q24H [facility] Stop: 12/07/17 09:59 Lactobacillus Rhamnosus (Culturelle 15b) 1 each PO DAILY [facility] Stop: 12/05/17 08:59 Last Admin: 10/08/17 08:35 Dose: 1 each Levothyroxine Sodium (Synthroid) 0.05 mg GT QDAC [facility] Stop: 12/02/17 07:29 Last Admin: 10/08/17 06:39 Dose: 0.05 mg Lorazepam (Ativan) 2 mg IVP Q4HR PRN; Protocol PRN Reason: Anxiety Stop: 12/01/17 21:46 Last Admin: 10/06/17 08:46 Dose: 2 mg Magnesium Hydroxide (Milk Of Magnesia) 30 ml GT HS PRN PRN Reason: Constipation Stop: 12/01/17 21:40 Methylprednisolone Sodium Succinate (Solu-Medrol) 40 mg IVP Q6HR [facility] Stop: 12/05/17 17:59 Last Admin: 10/08/17 05:44 Dose: 40 mg Metoprolol Tartrate (Lopressor) 25 mg GT BID [facility] Stop: 12/02/17 08:59 Last Admin: 10/07/17 17:05 Dose: Not Given Miscellaneous (Probiotic Screen) 1 ea PRN PRN PRN Reason: PROTOCOL Stop: 12/04/17 09:59 Miscellaneous (Vancomycin Iv Per Pharmacy) 1 ea MC PRN [facility] Stop: 12/06/17 22:59 Morphine Sulfate (Morphine) 2 mg IVP Q4H PRN PRN Reason: moderate pain Stop: 12/01/17 21:46 Ondansetron HCl (Zofran) 4 mg IVP Q6H PRN PRN Reason: Nausea / Vomiting Stop: 12/01/17 21:46 Pantoprazole Sodium (Protonix) 40 mg IVP BID [facility] Stop: 12/05/17 16:59 Last Admin: 10/08/17 08:35 Dose: 40 mg Polyethylene Glycol (Miralax) 17 gm PO BID [facility] Stop: 12/04/17 10:14 Last Admin: 10/08/17 08:35 Dose: 17 gm Potassium Chloride (Potassium Chloride Elixir) 40 meq PO DAILY PRN PRN Reason: k level less than 3.5 Stop: 12/03/17 07:20 Last Admin: 10/06/17 08:47 Dose: 40 meq Sodium Phosphate (Fleet Enema) 135 ml RC Q48H PRN PRN Reason: Constipation Stop: 12/01/17 21:40 Zolpidem Tartrate (Ambien) 10 mg PO HS PRN PRN Reason: Insomnia Stop: 12/01/17 21:46 General: Alert HEENT: Atraumatic, PERRLA, Other (intubated, ET tube in plce) Neck: Supple Cardiovascular: Regular rate Lungs: Clear to auscultation Abdomen: Bowel sounds, Soft, Other (mild abd distension. G tube site c/d/i) Assessment/Plan - Assessment Assessment: # Fecal impaction # Abd distension # Possible pneumonia # Anemia CT and KUB show large fecal impaction. Now s/p several enemas and golytely bowel prep and is having liquid stool. KUB on 10/04 shows some improvement although still large amount of stool. No overt GI bleeding, although pt has had some blood loss from his trach # Respiratory failure, possible pneumonia Transferred to ICU 10/06 for increased respiratory distress, and now intubated. Plan: - RNs will attempt manual fecal disempaction today as still large amount of stool in the colon. - continue tap water enemas and miralax bid. He has already had full bowel prep on admission - management of pneumonia as per primary
[2017-10-08 08:59] LABS: pH 7.43 (7.35-7.45)
[2017-10-08] MEDS: Aspirin 81mg Chewable Tab GT SCH (09:49)
[2017-10-08 14:04] LABS: ANION GAP 11.6 (7.0-16.0); BUN - UREA NITROGEN 39 mg/dL (7-25); CALCIUM SERUM 8.2 mg/dL (8.6-10.3); CARBON DIOXIDE 21.7 mEq/L (21.0-31.0); CHLORIDE 116 mEq/L (98-107); GLUCOSE 105 mg/dL (70-105); POTASSIUM SERUM 3.3 mEq/L (3.5-5.1); SODIUM SERUM 146 mEq/L (136-145)
[2017-10-08] MEDS ORDERED: VTE Chemical Prophylaxis Screen/Admission MC PRN (14:32)
--- NOTE | 2017-10-08 17:52 | Infectious Disease Prog Note ---
Infectious Disease Subjective - Review of Systems Service Date: 10/08/17 Events since last encounter: There is no new change, no fever. Subjective: There is no fever. Infectious Disease Objective - Results Result Diagrams: 10/08/17 04:15 10/08/17 13:00 Recent Labs: Laboratory Last Values WBC 14.4 Th/cmm (4.8-10.8) H 10/08/17 04:15 RBC 2.43 Mil/cmm (3.80-5.80) L 10/08/17 04:15 Hgb 7.7 gm/dL (12-16) L* D 10/08/17 04:15 Hct 22.5 % (41.0-60) L D 10/08/17 04:15 MCV 92.6 fl (80-99) 10/08/17 04:15 MCH 31.8 pg (27.0-31.0) H 10/08/17 04:15 MCHC Differential 34.4 pg (28.0-36.0) 10/08/17 04:15 RDW 16.0 % (11.5-20.0) 10/08/17 04:15 Plt Count 96 Th/cmm (150-400) L D 10/08/17 04:15 MPV 10.2 fl 10/08/17 04:15 Neutrophils % 65.4 % (40.0-80.0) 10/06/17 05:58 Band Neutrophils % 4 % (0-10) 10/08/17 04:15 Lymphocytes % 14.6 % (20.0-50.0) L 10/06/17 05:58 Monocytes % 7.1 % (2.0-10.0) 10/06/17 05:58 Eosinophils % 12.7 % (0.0-5.0) H 10/06/17 05:58 Basophils % 0.2 % (0.0-2.0) 10/06/17 05:58 Neutrophils (Manual) 87 % (40-80) H 10/08/17 04:15 Lymphocytes 7 % (20-50) L 10/08/17 04:15 Monocytes 2 % (2-10) 10/08/17 04:15 Hypochromia 1+ 10/08/17 04:15 Platelet Estimate DECREASED PLATELETS (NORMAL) 10/08/17 04:15 Poikilocytosis 1+ 10/08/17 04:15 Macrocytosis 1+ 10/08/17 04:15 PT 10.7 SECONDS (9.5-11.5) 10/02/17 19:43 INR 1.03 (0.5-1.4) 10/02/17 19:43 PTT (Actin FS) 27.6 SECONDS (26.0-38.0) 10/02/17 19:43 Specimen Source Arterial 10/08/17 08:50 Sample Site LB 10/08/17 08:50 pH 7.43 (7.35-7.45) 10/08/17 08:50 pCO2 33.0 mmHg (35.0-45.0) L 10/08/17 08:50 pO2 140.0 mmHg (80.0-100.0) H 10/08/17 08:50 HCO3 23.6 mEq/L (20.0-26.0) 10/08/17 08:50 Base Excess -1.8 mEq/L (-3.0-3.0) 10/08/17 08:50 O2 Saturation 99.0 % (92.0-100.0) 10/08/17 08:50 Ramiro Test pos 10/07/17 03:25 Vent Rate 14 10/08/17 08:50 Inspired O2 30 10/08/17 08:50 Tidal Volume 500 10/08/17 08:50 PEEP 5 10/08/17 08:50 Pressure (ins/psv/peep) n/a 10/07/17 03:25 Critical Value PW 10/08/17 08:50 Sodium 146 mEq/L (136-145) H 10/08/17 13:00 Potassium 3.3 mEq/L (3.5-5.1) L 10/08/17 13:00 Chloride 116 mEq/L (98-107) H 10/08/17 13:00 Carbon Dioxide 21.7 mEq/L (21.0-31.0) 10/08/17 13:00 Anion Gap 11.6 (7.0-16.0) 10/08/17 13:00 BUN 39 mg/dL (7-25) H 10/08/17 13:00 Creatinine 1.0 mg/dL (0.7-1.3) 10/08/17 13:00 Est GFR ( Amer) TNP 10/08/17 13:00 Est GFR (Non-Af Amer) TNP 10/08/17 13:00 BUN/Creatinine Ratio 39.0 10/08/17 13:00 Glucose 105 mg/dL (70-105) 10/08/17 13:00 Whole Bld Lactic Acid 1.94 mmol/L (0.60-1.99) 10/07/17 16:26 Calcium 8.2 mg/dL (8.6-10.3) L 10/08/17 13:00 Urine Source CLEAN C 10/04/17 10:00 Urine Color YELLOW 10/04/17 10:00 Urine Clarity HAZY (CLEAR) 10/04/17 10:00 Urine pH 6.5 (4.6 - 8.0) 10/04/17 10:00 Ur Specific [place] 1.020 (1.005-1.030) 10/04/17 10:00 Urine Protein TRACE mg/dL (NEGATIVE) 10/04/17 10:00 Urine Glucose (UA) NEGATIVE mg/dL (NEGATIVE) 10/04/17 10:00 Urine Ketones NEGATIVE mg/dL (NEGATIVE) 10/04/17 10:00 Urine Blood NEGATIVE (NEGATIVE) 10/04/17 10:00 Urine Nitrate NEGATIVE (NEGATIVE) 10/04/17 10:00 Urine Bilirubin NEGATIVE (NEGATIVE) 10/04/17 10:00 Urine Urobilinogen 4.0 E.U./dL (0.2 - 1.0) H 10/04/17 10:00 Ur Leukocyte Esterase NEGATIVE (NEGATIVE) 10/04/17 10:00 Urine RBC 0-2 /hpf (0-5) H 10/04/17 10:00 Urine WBC 2-5 /hpf (0-5) H 10/04/17 10:00 Ur Epithelial Cells OCCASIONAL /lpf (FEW) 10/04/17 10:00 Urine Bacteria FEW /hpf (NONE SEEN) 10/04/17 10:00 Influenza A (Rapid) NEG FOR INF A 10/04/17 02:53 Influenza B (Rapid) NEG FOR INF B 10/04/17 02:53 - Physical Exam Vitals and I&O: Vital Signs Temp 97.3 F 10/08/17 12:00 Pulse 76 10/08/17 16:53 Resp 14 10/08/17 16:00 BP 120/48 10/08/17 16:00 Pulse Ox 96 10/08/17 16:53 Intake & Output 10/07/17 10/08/17 10/08/17 18:59 06:59 18:59 Intake Total 250 350 350 Output Total 300 400 Balance -50 -50 350 Weight (lbs) 56.245 kg 56.245 kg Intake: Intake, IV Amount 50 250 350 Meropenem 500 mg In 100 100 Sodium Chloride 0.9% 100 ml @ 100 mls/hr IV Q8HR [facility] Rx#:[id number] Piperacillin Sodium/ 50 50 Tazobact 2.25 gm In Sodium Chloride 0.9% 50 ml @ 100 mls/hr IV Q6HR [facility] Rx#:[id number] Vancomycin HCl 0.75 gm In 250 Sodium Chloride 0.9% 250 ml @ 165 mls/hr IV Q24H [facility] Rx#:[id number] Other 200 100 Output: Urine 300 400 Other: # Voids 2 # Bowel Movements 2 1 Stool Characteristics Soft Formed Active Medications: Current Medications Acetaminophen (Tylenol) 650 mg GT Q6HR PRN PRN Reason: Pain or Fever >101 Stop: 12/01/17 21:40 Last Admin: 10/06/17 16:05 Dose: 650 mg Albuterol/Ipratropium (Duoneb Neb) 3 ml HHN Q4HRT PRN PRN Reason: Wheezing Stop: 12/05/17 15:10 Albuterol/Ipratropium (Duoneb Neb) 3 ml HHN Q4HRT [facility] Stop: 12/05/17 15:14 Last Admin: 10/08/17 15:16 Dose: 3 ml Aspirin (Aspirin Chewable) 81 mg GT DAILY [facility] Stop: 12/02/17 08:59 Last Admin: 10/08/17 09:49 Dose: Not Given Bisacodyl (Dulcolax 10 Mg Supp) 10 mg RC DAILY PRN PRN Reason: Constipation Stop: 12/01/17 21:40 Chlorhexidine Gluconate (Peridex) 15 ml MM 0800,2200 [facility] Stop: 12/06/17 21:59 Last Admin: 10/08/17 08:35 Dose: 15 ml Heparin Sodium (Porcine) (Heparin) 5,000 units SUBQ Q12H [facility] Stop: 12/01/17 21:44 Last Admin: 10/08/17 09:50 Dose: Not Given Hydralazine HCl (Apresoline) 25 mg GT TID PRN PRN Reason: SBP > 150 Stop: 12/01/17 21:40 Potassium Chloride 40 meq/Lidocaine HCl 25 mg/ Sodium Chloride 272.5 mls @ 68 mls/hr IV DAILY PRN PRN Reason: k level less than 3.2 Stop: 12/01/17 21:46 Last Admin: 10/08/17 08:39 Dose: 68 mls/hr Magnesium Sulfate (Magnesium Sulfate Premix) 2 gm in 50 mls @ 25 mls/hr IV DAILY PRN PRN Reason: Magnesium level less than 1.6 Stop: 12/01/17 21:46 Dextrose/Sodium Chloride (D5-0.45ns) 1,000 mls @ 75 mls/hr IV .[id number] [facility] Stop: 12/02/17 09:14 Last Admin: 10/07/17 05:56 Dose: 75 mls/hr Meropenem 500 mg/ Sodium (Chloride) 100 mls @ 100 mls/hr IV Q8HR [facility] Stop: 12/07/17 04:59 Last Infusion: 10/08/17 13:10 Dose: Infused Vancomycin HCl 0.75 gm/ Sodium (Chloride) 250 mls @ 165 mls/hr IV Q24H [facility] Stop: 12/07/17 09:59 Last Infusion: 10/08/17 11:25 Dose: Infused Lactobacillus Rhamnosus (Culturelle 15b) 1 each PO DAILY [facility] Stop: 12/05/17 08:59 Last Admin: 10/08/17 08:35 Dose: 1 each Levothyroxine Sodium (Synthroid) 0.05 mg GT QDAC [facility] Stop: 12/02/17 07:29 Last Admin: 10/08/17 06:39 Dose: 0.05 mg Lorazepam (Ativan) 2 mg IVP Q4HR PRN; Protocol PRN Reason: Anxiety Stop: 12/01/17 21:46 Last Admin: 10/06/17 08:46 Dose: 2 mg Magnesium Hydroxide (Milk Of Magnesia) 30 ml GT HS PRN PRN Reason: Constipation Stop: 12/01/17 21:40 Methylprednisolone Sodium Succinate (Solu-Medrol) 40 mg IVP Q6HR [facility] Stop: 12/05/17 17:59 Last Admin: 10/08/17 12:09 Dose: 40 mg Metoprolol Tartrate (Lopressor) 25 mg GT BID [facility] Stop: 12/02/17 08:59 Last Admin: 10/08/17 09:49 Dose: Not Given Miscellaneous (Probiotic Screen) 1 ea MC PRN PRN PRN Reason: PROTOCOL Stop: 12/04/17 09:59 Miscellaneous (Vancomycin Iv Per Pharmacy) 1 ea MC PRN [facility] Stop: 12/06/17 22:59 Miscellaneous (Vte Chemical Prophylaxis Screen/ Admission) 1 ea MC PRN PRN PRN Reason: PROTOCOL Stop: 12/07/17 14:31 Morphine Sulfate (Morphine) 2 mg IVP Q4H PRN PRN Reason: moderate pain Stop: 12/01/17 21:46 Ondansetron HCl (Zofran) 4 mg IVP Q6H PRN PRN Reason: Nausea / Vomiting Stop: 12/01/17 21:46 Pantoprazole Sodium (Protonix) 40 mg IVP BID [facility] Stop: 12/05/17 16:59 Last Admin: 10/08/17 16:33 Dose: 40 mg Polyethylene Glycol (Miralax) 17 gm PO BID [facility] Stop: 12/04/17 10:14 Last Admin: 10/08/17 16:32 Dose: 17 gm Potassium Chloride (Potassium Chloride Elixir) 40 meq PO DAILY PRN PRN Reason: k level less than 3.5 Stop: 12/03/17 07:20 Last Admin: 10/06/17 08:47 Dose: 40 meq Sodium Phosphate (Fleet Enema) 135 ml RC Q48H PRN PRN Reason: Constipation Stop: 12/01/17 21:40 Zolpidem Tartrate (Ambien) 10 mg PO HS PRN PRN Reason: Insomnia Stop: 12/01/17 21:46 General: no acute distress, well developed, well nourished HEENT: atraumatic, normocephalic, PERRLA, EOMI Neck: supple, no thyromegaly Cardiovascular: S1S2, regular Lungs: clear to auscultation bilaterally, clear to percussion Abdomen: soft, bowel sounds, no tender, no distended Extremities: no cyanosis, no clubbing, no edema Neurological: awake, alert Skin: intact Infectious Disease Assmt/Plan - Assessment Assessment: 1. Leukocytosis, respiratory failure, sepsis. 2. Aspiration pneumonia versus healthcare facility associated pneumonia. 3. Dementia. 4. COPD and COPD exacerbation. 5. Hypertension. 6. Acute respiratory failure on ventilator. - Plan Plan: continue meropenem and vancomycin. Sepsis workup. Nutritional Asmnt/Malnutr-PDOC - Dietary Evaluation Malnutrition Findings (Please click <Entered> for more info): Nutritional Asmnt/Malnutrition Start: 10/05/17 17: 05 Text: Status: Complete Freq: Document 10/05/17 17:05 [facility] (Rec: 10/05/17 17:26 [facility] [id number]) Nutritional Asmnt/Malnutrition Patient General Information Nutritional Screening High Risk Diagnosis aspiration PNA Pertinent Medical Hx/Surgical Hx alzheimer demtnia, COPD, HTN, dysphagia Subjective Information Pt seen resting in bed at time of visit. Received TF Nutren 1.0 fiber 20ml/hr continuous this morning. Notified RN we do not have this formula in stock. changed to Fibersource HN at 20ml/hr continuous. Per notes, pt had fecal impaction, on enema and golytely yesterday, had 5 times of liquidy brown BM. Current Diet Order/ Nutrition Support Fibersource HN at 20ml/hr continuous, providing 576kcal, 26g protein Pertinent Medications D5-0.45ns, culturelle, synthroid, Magnium, piperacillin, miralx, kcl Pertinent Labs 10/05 Na 146, K 3.3, Cl 114, BUN 27, Cr 1.0, Ca 8.1 Nutritional Hx/Data Height 1.78 m Height (Calculated Centimeters) 177.8 Current Weight (lbs) 54.885 kg Weight (Calculated Kilograms) 54.9 Weight (Calculated Grams) 19769.7 [place] Body Weight 166 % [place] Body Weight 73 Body Mass Index (BMI) 17.3 Weight Status Overweight GI Symptoms Last BM 10/05 x 4 Difficult in: None Skin Integrity/Comment: intact Estimated Nutritional Goals BEE in Kcals: Using Current wt Calories/Kcals/Kg 27-32 Kcals Calculated 2526-3425 Protein: Using Current wt Protein g/k.1-1.4 Protein Calculated 61-72 Fluid: ml 1650-1925ml (1ml/kcal) Nutritional Problem 1. Problem Problem inadequate intake from enteral feeding Etiology TF running at low rate d/t fecal impaction Signs/Symptoms: current TF meeting 35% of nutritional needs Malnutrition Alert Protein-Calorie Malnutrition N/A Is there a minimum of two criteria No selected? Query Text:Check all the applicable criteria. A minimum of two criteria are recommended for diagnosis of either severe or non-severe malnutrition. Intervention/Recommendation Comments 1. Continue with current TF regimen at this time. When medically appropriate, increase to goal rate of 50ml/ hr, providing 1440kcal and 65g protein, meeting 100% of nutritional needs. 2. Monitor TF rate, tolerance, wt weekly, skin integrity and labs 3. F/U as nam risk in 2-3 days, 10/07-10/08 Expected Outcomes/Goals Expected Outcomes/Goals 1. Pt to meet at least 75% of nutritional needs via nutrition support with tolerance 2. Wt stability, GI function to improve, skin to remain intact, labs to approach WNL.
[2017-10-09] MEDS: methylPREDNISolone SS 40 mg Vial IVP SCH ×5 (00:22→23:55)
[2017-10-09] MEDS: Albuterol/Ipratropium Neb 3 ML AERS HHN SCH ×6 (02:09→23:19)
[2017-10-09] MEDS: Meropenem 500 MG in Sodium Chloride 0.9% 100 ML IV SCH ×3 (05:26→20:39)
[2017-10-09 06:23] LABS: ANION GAP 9.2 (7.0-16.0); BUN - UREA NITROGEN 32 mg/dL (7-25); CALCIUM SERUM 8.5 mg/dL (8.6-10.3); CARBON DIOXIDE 21.4 mEq/L (21.0-31.0); CHLORIDE 117 mEq/L (98-107); CREATININE - SERUM 0.9 mg/dL (0.7-1.3); GLUCOSE 95 mg/dL (70-105); POTASSIUM SERUM 3.6 mEq/L (3.5-5.1); SODIUM SERUM 144 mEq/L (136-145)
[2017-10-09 06:36] LABS: EOSINOPHILE ABSOLUTE 0.1 Th/cmm (0.1-0.4); LYMPHOCYTE ABSOLUTE 1.2 Th/cmm (1.5-3.0); MEAN CELL VOLUME 93.5 fl (80-99); MEAN CORPUSCULAR HEMOGLOBIN 31.4 pg (27.0-31.0); MEAN CORPUSCULAR HGB CONC 33.6 pg (28.0-36.0); MEAN PLATELET VOLUME 12.7 fl; MONOCYTE ABSOLUTE 2.3 Th/cmm (0.3-1.0); NEUTROPHILE ABSOLUTE 11.1 Th/cmm (1.8-8.0); RED BLOOD COUNT 2.49 Mil/cmm (3.80-5.80); RED CELL DISTRIBUTION WIDTH 16.8 % (11.5-20.0)
[2017-10-09 06:38] LABS: WHITE BLOOD COUNT 14.7 Th/cmm (4.8-10.8)
[2017-10-09 06:39] LABS: HEMATOCRIT 23.3 % (41.0-60); HEMOGLOBIN 7.8 gm/dL (12-16); PLATELET COUNT 142 Th/cmm (150-400)
[2017-10-09] MEDS: Levothyroxine 0.05 Mg Tab GT SCH (06:45)
[2017-10-09 07:12] LABS: BAND NEUTROPHILE 3 % (0-10); EOSINOPHIL 2 % (0-5); LYMPHOCYTE 21 % (20-50); MONOCYTE 4 % (2-10); NEUTROPHILS 70 % (40-80); TOTAL CELLS COUNTED 100
[2017-10-09] MEDS: Lactobacillus Rhamnosus GG 15 Billion CFU CAP.SPRINK PO SCH (08:46)
[2017-10-09] MEDS: POLYETHYLENE GLYCOL 3350 17 GM PACK PO SCH ×2 (08:46→17:37)
[2017-10-09] MEDS: Chlorhexidine Gluconate 0.12% 480mL Bottle MM SCH ×2 (08:46→21:55)
[2017-10-09] MEDS: Aspirin 81mg Chewable Tab GT SCH (08:46)
--- NOTE | 2017-10-09 09:04 | GI Progress Note ---
Subjective - Review of Systems Service Date: 10/09/17 Subjective: 4 large BMs yesterday as per nursing Objective - Results Result Diagrams: 10/09/17 05:50 10/09/17 05:50 Recent Labs: Laboratory Last Values WBC 14.7 Th/cmm (4.8-10.8) H 10/09/17 05:50 RBC 2.49 Mil/cmm (3.80-5.80) L 10/09/17 05:50 Hgb 7.8 gm/dL (12-16) L* 10/09/17 05:50 Hct 23.3 % (41.0-60) L 10/09/17 05:50 MCV 93.5 fl (80-99) 10/09/17 05:50 MCH 31.4 pg (27.0-31.0) H 10/09/17 05:50 MCHC Differential 33.6 pg (28.0-36.0) 10/09/17 05:50 RDW 16.8 % (11.5-20.0) 10/09/17 05:50 Plt Count 142 Th/cmm (150-400) L D 10/09/17 05:50 MPV 12.7 fl 10/09/17 05:50 Neutrophils % 65.4 % (40.0-80.0) 10/06/17 05:58 Band Neutrophils % 3 % (0-10) 10/09/17 05:50 Lymphocytes % 14.6 % (20.0-50.0) L 10/06/17 05:58 Monocytes % 7.1 % (2.0-10.0) 10/06/17 05:58 Eosinophils % 12.7 % (0.0-5.0) H 10/06/17 05:58 Basophils % 0.2 % (0.0-2.0) 10/06/17 05:58 Neutrophils (Manual) 70 % (40-80) 10/09/17 05:50 Lymphocytes 21 % (20-50) 10/09/17 05:50 Monocytes 4 % (2-10) 10/09/17 05:50 Eosinophils 2 % (0-5) 10/09/17 05:50 Hypochromia 1+ 10/08/17 04:15 Platelet Estimate DECREASED PLATELETS (NORMAL) 10/08/17 04:15 Poikilocytosis 1+ 10/08/17 04:15 Macrocytosis 1+ 10/08/17 04:15 PT 10.7 SECONDS (9.5-11.5) 10/02/17 19:43 INR 1.03 (0.5-1.4) 10/02/17 19:43 PTT (Actin FS) 27.6 SECONDS (26.0-38.0) 10/02/17 19:43 Specimen Source Arterial 10/08/17 08:50 Sample Site LB 10/08/17 08:50 pH 7.43 (7.35-7.45) 10/08/17 08:50 pCO2 33.0 mmHg (35.0-45.0) L 10/08/17 08:50 pO2 140.0 mmHg (80.0-100.0) H 10/08/17 08:50 HCO3 23.6 mEq/L (20.0-26.0) 10/08/17 08:50 Base Excess -1.8 mEq/L (-3.0-3.0) 10/08/17 08:50 O2 Saturation 99.0 % (92.0-100.0) 10/08/17 08:50 Ramiro Test pos 10/07/17 03:25 Vent Rate 14 10/08/17 08:50 Inspired O2 30 10/08/17 08:50 Tidal Volume 500 10/08/17 08:50 PEEP 5 10/08/17 08:50 Pressure (ins/psv/peep) n/a 10/07/17 03:25 Critical Value PW 10/08/17 08:50 Sodium 144 mEq/L (136-145) 10/09/17 05:50 Potassium 3.6 mEq/L (3.5-5.1) 10/09/17 05:50 Chloride 117 mEq/L (98-107) H 10/09/17 05:50 Carbon Dioxide 21.4 mEq/L (21.0-31.0) 10/09/17 05:50 Anion Gap 9.2 (7.0-16.0) 10/09/17 05:50 BUN 32 mg/dL (7-25) H 10/09/17 05:50 Creatinine 0.9 mg/dL (0.7-1.3) 10/09/17 05:50 Est GFR ( Amer) TNP 10/09/17 05:50 Est GFR (Non-Af Amer) TNP 10/09/17 05:50 BUN/Creatinine Ratio 35.6 10/09/17 05:50 Glucose 95 mg/dL (70-105) 10/09/17 05:50 Whole Bld Lactic Acid 1.94 mmol/L (0.60-1.99) 10/07/17 16:26 Calcium 8.5 mg/dL (8.6-10.3) L 10/09/17 05:50 Urine Source CLEAN C 10/04/17 10:00 Urine Color YELLOW 10/04/17 10:00 Urine Clarity HAZY (CLEAR) 10/04/17 10:00 Urine pH 6.5 (4.6 - 8.0) 10/04/17 10:00 Ur Specific Vernal 1.020 (1.005-1.030) 10/04/17 10:00 Urine Protein TRACE mg/dL (NEGATIVE) 10/04/17 10:00 Urine Glucose (UA) NEGATIVE mg/dL (NEGATIVE) 10/04/17 10:00 Urine Ketones NEGATIVE mg/dL (NEGATIVE) 10/04/17 10:00 Urine Blood NEGATIVE (NEGATIVE) 10/04/17 10:00 Urine Nitrate NEGATIVE (NEGATIVE) 10/04/17 10:00 Urine Bilirubin NEGATIVE (NEGATIVE) 10/04/17 10:00 Urine Urobilinogen 4.0 E.U./dL (0.2 - 1.0) H 10/04/17 10:00 Ur Leukocyte Esterase NEGATIVE (NEGATIVE) 10/04/17 10:00 Urine RBC 0-2 /hpf (0-5) H 10/04/17 10:00 Urine WBC 2-5 /hpf (0-5) H 10/04/17 10:00 Ur Epithelial Cells OCCASIONAL /lpf (FEW) 10/04/17 10:00 Urine Bacteria FEW /hpf (NONE SEEN) 10/04/17 10:00 Stool Occult Blood POSITIVE (NEGATIVE) H 10/08/17 19:00 Influenza A (Rapid) NEG FOR INF A 10/04/17 02:53 Influenza B (Rapid) NEG FOR INF B 10/04/17 02:53 - Physical Exam Vitals and I&O: Vital Signs Temp 96.8 F 10/09/17 04:00 Pulse 80 10/09/17 07:50 Resp 14 10/09/17 07:00 BP 102/51 10/09/17 08:46 Pulse Ox 97 10/09/17 07:50 Intake & Output 10/08/17 10/09/17 10/09/17 18:59 06:59 18:59 Intake Total 350 300 Output Total 400 400 Balance -50 -100 Weight (lbs) 56.245 kg 56.245 kg Intake: Intake, IV Amount 350 200 Meropenem 500 mg In 100 200 Sodium Chloride 0.9% 100 ml @ 100 mls/hr IV Q8HR [facility] Rx#:[id number] Vancomycin HCl 0.75 gm In 250 Sodium Chloride 0.9% 250 ml @ 165 mls/hr IV Q24H [facility] Rx#:[id number] Other 100 Output: Urine 400 400 Other: # Bowel Movements 3 1 Stool Characteristics Liquid Soft Brown Liquid Brown Green Active Medications: Current Medications Acetaminophen (Tylenol) 650 mg GT Q6HR PRN PRN Reason: Pain or Fever >101 Stop: 12/01/17 21:40 Last Admin: 10/06/17 16:05 Dose: 650 mg Albuterol/Ipratropium (Duoneb Neb) 3 ml HHN Q4HRT PRN PRN Reason: Wheezing Stop: 12/05/17 15:10 Albuterol/Ipratropium (Duoneb Neb) 3 ml HHN Q4HRT [facility] Stop: 12/05/17 15:14 Last Admin: 10/09/17 07:49 Dose: 3 ml Aspirin (Aspirin Chewable) 81 mg GT DAILY [facility] Stop: 12/02/17 08:59 Last Admin: 10/09/17 08:46 Dose: 81 mg Bisacodyl (Dulcolax 10 Mg Supp) 10 mg RC DAILY PRN PRN Reason: Constipation Stop: 12/01/17 21:40 Chlorhexidine Gluconate (Peridex) 15 ml MM 0800,2200 [facility] Stop: 12/06/17 21:59 Last Admin: 10/09/17 08:46 Dose: 15 ml Hydralazine HCl (Apresoline) 25 mg GT TID PRN PRN Reason: SBP > 150 Stop: 12/01/17 21:40 Potassium Chloride 40 meq/Lidocaine HCl 25 mg/ Sodium Chloride 272.5 mls @ 68 mls/hr IV DAILY PRN PRN Reason: k level less than 3.2 Stop: 12/01/17 21:46 Last Admin: 10/08/17 08:39 Dose: 68 mls/hr Magnesium Sulfate (Magnesium Sulfate Premix) 2 gm in 50 mls @ 25 mls/hr IV DAILY PRN PRN Reason: Magnesium level less than 1.6 Stop: 12/01/17 21:46 Dextrose/Sodium Chloride (D5-0.45ns) 1,000 mls @ 75 mls/hr IV .[id number] [facility] Stop: 12/02/17 09:14 Last Admin: 10/07/17 05:56 Dose: 75 mls/hr Meropenem 500 mg/ Sodium (Chloride) 100 mls @ 100 mls/hr IV Q8HR [facility] Stop: 12/07/17 04:59 Last Infusion: 10/09/17 06:30 Dose: Infused Vancomycin HCl 0.75 gm/ Sodium (Chloride) 250 mls @ 165 mls/hr IV Q24H [facility] Stop: 12/07/17 09:59 Last Infusion: 10/08/17 11:25 Dose: Infused Lactobacillus Rhamnosus (Culturelle 15b) 1 each PO DAILY [facility] Stop: 12/05/17 08:59 Last Admin: 10/09/17 08:46 Dose: 1 each Levothyroxine Sodium (Synthroid) 0.05 mg GT QDAC [facility] Stop: 12/02/17 07:29 Last Admin: 10/09/17 06:45 Dose: 0.05 mg Lorazepam (Ativan) 2 mg IVP Q4HR PRN; Protocol PRN Reason: Anxiety Stop: 12/01/17 21:46 Last Admin: 10/06/17 08:46 Dose: 2 mg Magnesium Hydroxide (Milk Of Magnesia) 30 ml GT HS PRN PRN Reason: Constipation Stop: 12/01/17 21:40 Methylprednisolone Sodium Succinate (Solu-Medrol) 40 mg IVP Q6HR [facility] Stop: 12/05/17 17:59 Last Admin: 10/09/17 05:26 Dose: 40 mg Metoprolol Tartrate (Lopressor) 25 mg GT BID [facility] Stop: 12/02/17 08:59 Last Admin: 10/09/17 08:46 Dose: Not Given Miscellaneous (Probiotic Screen) 1 ea MC PRN PRN PRN Reason: PROTOCOL Stop: 12/04/17 09:59 Miscellaneous (Vancomycin Iv Per Pharmacy) 1 ea MC PRN [facility] Stop: 12/06/17 22:59 Miscellaneous (Vte Chemical Prophylaxis Screen/ Admission) 1 ea PRN PRN PRN Reason: PROTOCOL Stop: 12/07/17 14:31 Morphine Sulfate (Morphine) 2 mg IVP Q4H PRN PRN Reason: moderate pain Stop: 12/01/17 21:46 Ondansetron HCl (Zofran) 4 mg IVP Q6H PRN PRN Reason: Nausea / Vomiting Stop: 12/01/17 21:46 Pantoprazole Sodium (Protonix) 40 mg IVP BID [facility] Stop: 12/05/17 16:59 Last Admin: 10/09/17 08:46 Dose: 40 mg Polyethylene Glycol (Miralax) 17 gm PO BID [facility] Stop: 12/04/17 10:14 Last Admin: 10/09/17 08:46 Dose: 17 gm Potassium Chloride (Potassium Chloride Elixir) 40 meq PO DAILY PRN PRN Reason: k level less than 3.5 Stop: 12/03/17 07:20 Last Admin: 10/06/17 08:47 Dose: 40 meq Sodium Phosphate (Fleet Enema) 135 ml RC Q48H PRN PRN Reason: Constipation Stop: 12/01/17 21:40 Zolpidem Tartrate (Ambien) 10 mg PO HS PRN PRN Reason: Insomnia Stop: 12/01/17 21:46 General: Alert HEENT: Atraumatic, PERRLA, Other (intubated, ET tube in plce) Neck: Supple Cardiovascular: Regular rate Lungs: Clear to auscultation Abdomen: Bowel sounds, Soft, Other (mild abd distension. G tube site c/d/i) - Procedures Procedures: Procedures Procedure Code Date INSERT EMERGENCY AIRWAY 33819 10/02/17 INSERTION OF ENDOTRACHEAL AIRWAY INTO [facility], VIA OPENING [id number] 10/02/17 RESPIRATORY VENTILATION, 24-96 CONSECUTIVE HOURS [id number] 10/02/17 VENT MGMT INPAT INIT DAY 10/02/17 VENT MGMT INPAT SUBQ DAY 10/02/17 Assessment/Plan - Assessment Assessment: # Fecal impaction # Abd distension # Possible pneumonia # Anemia CT and KUB show large fecal impaction. Now s/p several enemas and golytely bowel prep and is having liquid stool. KUB on 10/04 shows some improvement although still large amount of stool. No overt GI bleeding, although pt has had some blood loss from his trach. OB stool occult is positive, but this is expected given he has a large fecal impaction. # Respiratory failure, possible pneumonia Transferred to ICU 10/06 for increased respiratory distress, and now intubated. Plan: - would not act on stool OB positive without evidence of overt GI bleeding. Fecal impaction will cause a stool occult positive - will send iron labs, if deficient, he could benefit from IV iron supplimentation - continue tap water enemas and miralax bid. He has already had full bowel prep on admission - management of pneumonia as per primary - KUB today
[2017-10-09] MEDS: Fleet Enema 135 mL RC PRN (09:40)
--- NOTE | 2017-10-09 10:11 | Diagnostic Imaging Report ---
KUB abdominal film HISTORY: Pain, fecal impaction Compared with a prior exam of October 07, 2017, there is a persistent severely dilated stool-filled rectum and lower sigmoid colon consistent with a severe fecal impaction. IMPRESSION: 1. No change in findings of a severe fecal impaction with marked dilatation of the rectum and sigmoid colon.
--- NOTE | 2017-10-09 11:05 | Discharge Summary ---
DATE OF DISCHARGE: 10/06/2017 [facility], 10/06/2017. CAUSE OF ADMISSION: An 87-year-old male presented from [facility] after experiencing cough, chest congestion and intractable seizures. The patient's abdomen was also distended and it was found the patient had fecal impaction with obstipation. The patient was acting more altered than usual, so he was admitted to Med/Surg. ADMITTING DIAGNOSES: 1. Metabolic encephalopathy secondary to Alzheimer dementia exacerbation. 2. Sepsis. 3. Hypovolemic hypernatremia. 4. Hypertension. 5. Chronic obstructive pulmonary disease. 6. Dysphagia. 7. Severe fecal impaction with obstipation. DISCHARGE DIAGNOSES: 1. Metabolic encephalopathy secondary to Alzheimer dementia exacerbation. 2. Fecal impaction with obstipation. 3. Sepsis. 4. Hypovolemic hypernatremia. 5. Hypertension. 6. Chronic obstructive pulmonary disease. 7. Dysphagia. HOSPITAL COURSE: The patient's encephalopathy started to resolve. He tolerated the hospitalization well and the patient started to have bowel movement and his abdomen is no longer distended. The patient's potassium was 2.8 upon last admission and he was given 40 mEq by G-tube and then also 40 mEq IV. The patient will have the BMP repeated later this afternoon at 3:00 p.m. As long as the BMP is within normal limits, the patient will be able to be discharged back to [facility]. [facility]# [id number]
--- NOTE | 2017-10-09 11:07 | Progress Notes ---
DATE: 10/07/2017 SUBJECTIVE: The patient is lying comfortably in bed. The patient started having acute shortness of breath yesterday and was placed on high flow oxygen at that time. Pulmonology was consulted. Early this morning, the patient was transferred to the ICU for respiratory failure. He was intubated and sedated. His white blood cell count doubled from 8 to 16. Sputum culture was ordered. Continue IV antibiotics. OBJECTIVE: VITAL SIGNS: Temperature 97.8, pulse rate 76, blood pressure 125/61, respiratory rate 14, and FiO2 of 30 with 100% saturation. GENERAL: NAD. HEENT: PERRLA. EOMI. ET tube in place. NECK: Supple, no JVD. CARDIOVASCULAR: Regular rate and rhythm. RESPIRATORY: Decreased breath sounds bilaterally with intermittent rhonchi. No wheezing or rales. ABDOMEN: Soft, nontender, and nondistended. Bowel sounds x 4. G-tube in place. SKIN: No rashes or breakdown. PSYCHIATRIC: No psychosis. MUSCULOSKELETAL: Positive muscle tone. LABORATORY DATA: White blood cell count 16.7 and hemoglobin 10.3. Sodium 145 and potassium 3.9. ASSESSMENT AND PLAN: Sepsis, aspiration pneumonia, chronic obstructive pulmonary disease, hypertension, fecal impaction with obstipation, metabolic encephalopathy secondary to Alzheimer dementia exacerbation, anemia of chronic illness, and hypothyroidism. Pulmonology and Gastroenterology are following. Continue IV antibiotics and IV fluids. The patient is currently intubated and sedated. Per Pulmonology, the patient will be weaned off the ventilator. Continue tube feeds. Tylenol as needed for mild pain or fevers, levothyroxine for hypothyroidism, metoprolol for hypertension, and Protonix b.i.d. for acid reflux. JOB# [id number]
--- NOTE | 2017-10-09 11:08 | Progress Notes ---
DATE: 10/08/2017 SUBJECTIVE: The patient was seen, evaluated, and is lying comfortably in bed and does not appear to be in any acute pain or distress at this time. The patient remains intubated and sedated. Infectious Disease was consulted due to aspiration pneumonia. Due to the patient's white count going from 8-16 yesterday, white blood cell count is 14.4 today, sputum culture was ordered. OBJECTIVE: VITAL SIGNS: Temperature 97.4 degrees, pulse rate 76, respirations 16, blood pressure is 109/75, and O2 sat is 100% on FIO2 of 30%. GENERAL: NAD. HEENT: PERRLA, EOMI. ET tube in place. NECK: Supple, no JVD. CARDIOVASCULAR: Regular rate and rhythm. RESPIRATORY: Decreased breath sounds. No wheezing, rales, or rhonchi. ABDOMEN: Soft, nontender, nondistended, bowel sounds x4. Gastrostomy tube in place. SKIN: No rashes. PSYCHIATRIC: No psychosis. MUSCULOSKELETAL: Muscle strength testing in bilateral upper and lower extremities 4/5. LABORATORY DATA: White blood cell count is 14.4 and hemoglobin 7.7. ASSESSMENT AND PLAN: Fecal impaction with obstipation, aspiration pneumonia, anemia of chronic illness, muscle weakness, dysphagia, unsteady gait, sepsis, hypovolemic hypernatremia, chronic obstructive pulmonary disease, metabolic encephalopathy secondary to Alzheimer dementia exacerbation. Continue IV antibiotics. Infectious Disease and GI are following. A cardiac echo is pending. Sputum culture and blood cultures are pending. Continue vancomycin and Zosyn. Meropenem that was discontinued. Levothyroxine for hypothyroidism. Heparin subcutaneous will be held due to worsened anemia. Bronchodilators and steroids. JOB# [id number]
--- NOTE | 2017-10-09 11:08 | Progress Notes ---
DATE: 10/07/2017 SUBJECTIVE: The patient is lying comfortably in bed. No complaints at this time. Denies fevers or chills. Tolerating tube feeds without complication. The patient had a large bowel movement and his abdomen is nondistended at this time. OBJECTIVE: VITAL SIGNS: Temperature 98.6 degrees, blood pressure 116/80, respiratory rate 18, and pulse 90. GENERAL: NAD. HEENT: PERRLA. EOMI. NECK: Supple. Trachea midline. CARDIOVASCULAR: Regular rate and rhythm. RESPIRATORY: CTA bilaterally. Decreased breath sounds bilaterally with rhonchi. ABDOMEN: Soft, nontender, and nondistended. Bowel sounds x 4. G-tube in place. SKIN: Intact. No rashes. PSYCHIATRIC: No psychosis or hallucinations. MUSCULOSKELETAL: Positive muscle tone. LABORATORY DATA: White blood cell count 8 and hemoglobin 11. ASSESSMENT AND PLAN: Sepsis secondary to aspiration pneumonia, dementia, Alzheimer exacerbation, metabolic encephalopathy secondary to dementia, or Alzheimer dementia exacerbation, chronic obstructive pulmonary disease, hypertension, dysphagia, severe fecal impaction with obstipation, and hypothyroidism. Gastroenterology and Pulmonology are following. Continue IV Zosyn. The patient passed large stool. NPO, continue tube feeds. Metoprolol for hypertension, Tylenol as needed for mild pain or fevers, heparin for deep venous thrombosis prophylaxis, levothyroxine for hypothyroidism, Ativan p.r.n. for agitation or anxiety, Protonix for acid reflux. JOB# [id number]
[2017-10-09] MEDS ORDERED: Sodium Chloride 0.9% 500 ML IV ONE (16:00)
[2017-10-09 16:04] VITALS: BP 114/64
[2017-10-09] MEDS ORDERED: D5-0.45NS 1,000 ML IV SCH (16:50)
--- NOTE | 2017-10-09 19:25 | Infectious Disease Prog Note ---
Infectious Disease Subjective - Review of Systems Service Date: 10/09/17 Subjective: There is no fever. intubated orally, on vent. Infectious Disease Objective - Results Result Diagrams: 10/09/17 05:50 10/09/17 05:50 Recent Labs: Laboratory Last Values WBC 14.7 Th/cmm (4.8-10.8) H 10/09/17 05:50 RBC 2.49 Mil/cmm (3.80-5.80) L 10/09/17 05:50 Hgb 7.8 gm/dL (12-16) L* 10/09/17 05:50 Hct 23.3 % (41.0-60) L 10/09/17 05:50 MCV 93.5 fl (80-99) 10/09/17 05:50 MCH 31.4 pg (27.0-31.0) H 10/09/17 05:50 MCHC Differential 33.6 pg (28.0-36.0) 10/09/17 05:50 RDW 16.8 % (11.5-20.0) 10/09/17 05:50 Plt Count 142 Th/cmm (150-400) L D 10/09/17 05:50 MPV 12.7 fl 10/09/17 05:50 Neutrophils % 65.4 % (40.0-80.0) 10/06/17 05:58 Band Neutrophils % 3 % (0-10) 10/09/17 05:50 Lymphocytes % 14.6 % (20.0-50.0) L 10/06/17 05:58 Monocytes % 7.1 % (2.0-10.0) 10/06/17 05:58 Eosinophils % 12.7 % (0.0-5.0) H 10/06/17 05:58 Basophils % 0.2 % (0.0-2.0) 10/06/17 05:58 Neutrophils (Manual) 70 % (40-80) 10/09/17 05:50 Lymphocytes 21 % (20-50) 10/09/17 05:50 Monocytes 4 % (2-10) 10/09/17 05:50 Eosinophils 2 % (0-5) 10/09/17 05:50 Hypochromia 1+ 10/08/17 04:15 Platelet Estimate DECREASED PLATELETS (NORMAL) 10/08/17 04:15 Poikilocytosis 1+ 10/08/17 04:15 Macrocytosis 1+ 10/08/17 04:15 PT 10.7 SECONDS (9.5-11.5) 10/02/17 19:43 INR 1.03 (0.5-1.4) 10/02/17 19:43 PTT (Actin FS) 27.6 SECONDS (26.0-38.0) 10/02/17 19:43 Specimen Source Arterial 10/08/17 08:50 Sample Site LB 10/08/17 08:50 pH 7.43 (7.35-7.45) 10/08/17 08:50 pCO2 33.0 mmHg (35.0-45.0) L 10/08/17 08:50 pO2 140.0 mmHg (80.0-100.0) H 10/08/17 08:50 HCO3 23.6 mEq/L (20.0-26.0) 10/08/17 08:50 Base Excess -1.8 mEq/L (-3.0-3.0) 10/08/17 08:50 O2 Saturation 99.0 % (92.0-100.0) 10/08/17 08:50 Ramiro Test pos 10/07/17 03:25 Vent Rate 14 10/08/17 08:50 Inspired O2 30 10/08/17 08:50 Tidal Volume 500 10/08/17 08:50 PEEP 5 10/08/17 08:50 Pressure (ins/psv/peep) n/a 10/07/17 03:25 Critical Value PW 10/08/17 08:50 Sodium 144 mEq/L (136-145) 10/09/17 05:50 Potassium 3.6 mEq/L (3.5-5.1) 10/09/17 05:50 Chloride 117 mEq/L (98-107) H 10/09/17 05:50 Carbon Dioxide 21.4 mEq/L (21.0-31.0) 10/09/17 05:50 Anion Gap 9.2 (7.0-16.0) 10/09/17 05:50 BUN 32 mg/dL (7-25) H 10/09/17 05:50 Creatinine 0.9 mg/dL (0.7-1.3) 10/09/17 05:50 Est GFR ( Amer) TNP 10/09/17 05:50 Est GFR (Non-Af Amer) TNP 10/09/17 05:50 BUN/Creatinine Ratio 35.6 10/09/17 05:50 Glucose 95 mg/dL (70-105) 10/09/17 05:50 Whole Bld Lactic Acid 1.94 mmol/L (0.60-1.99) 10/07/17 16:26 Calcium 8.5 mg/dL (8.6-10.3) L 10/09/17 05:50 Urine Source CLEAN C 10/04/17 10:00 Urine Color YELLOW 10/04/17 10:00 Urine Clarity HAZY (CLEAR) 10/04/17 10:00 Urine pH 6.5 (4.6 - 8.0) 10/04/17 10:00 Ur Specific [place] 1.020 (1.005-1.030) 10/04/17 10:00 Urine Protein TRACE mg/dL (NEGATIVE) 10/04/17 10:00 Urine Glucose (UA) NEGATIVE mg/dL (NEGATIVE) 10/04/17 10:00 Urine Ketones NEGATIVE mg/dL (NEGATIVE) 10/04/17 10:00 Urine Blood NEGATIVE (NEGATIVE) 10/04/17 10:00 Urine Nitrate NEGATIVE (NEGATIVE) 10/04/17 10:00 Urine Bilirubin NEGATIVE (NEGATIVE) 10/04/17 10:00 Urine Urobilinogen 4.0 E.U./dL (0.2 - 1.0) H 10/04/17 10:00 Ur Leukocyte Esterase NEGATIVE (NEGATIVE) 10/04/17 10:00 Urine RBC 0-2 /hpf (0-5) H 10/04/17 10:00 Urine WBC 2-5 /hpf (0-5) H 10/04/17 10:00 Ur Epithelial Cells OCCASIONAL /lpf (FEW) 10/04/17 10:00 Urine Bacteria FEW /hpf (NONE SEEN) 10/04/17 10:00 Stool Occult Blood POSITIVE (NEGATIVE) H 10/08/17 19:00 Influenza A (Rapid) NEG FOR INF A 10/04/17 02:53 Influenza B (Rapid) NEG FOR INF B 10/04/17 02:53 - Physical Exam Vitals and I&O: Vital Signs Temp 98.1 F 10/09/17 19:00 Pulse 65 10/09/17 19:06 Resp 12 10/09/17 19:00 BP 91/43 10/09/17 19:00 Pulse Ox 98 10/09/17 19:06 Intake & Output 10/09/17 10/09/17 10/10/17 06:59 18:59 06:59 Intake Total 300 350 Output Total 400 Balance -100 350 Weight (lbs) 56.245 kg Intake: Intake, IV Amount 200 350 Meropenem 500 mg In 200 100 Sodium Chloride 0.9% 100 ml @ 100 mls/hr IV Q8HR [facility] Rx#:[id number] Vancomycin HCl 0.75 gm In 250 Sodium Chloride 0.9% 250 ml @ 165 mls/hr IV Q24H [facility] Rx#:[id number] Other 100 Output: Urine 400 Other: # Bowel Movements 1 Stool Characteristics Soft Soft Liquid Liquid Brown Brown Green Green Active Medications: Current Medications Acetaminophen (Tylenol) 650 mg GT Q6HR PRN PRN Reason: Pain or Fever >101 Stop: 12/01/17 21:40 Last Admin: 10/06/17 16:05 Dose: 650 mg Albuterol/Ipratropium (Duoneb Neb) 3 ml HHN Q4HRT PRN PRN Reason: Wheezing Stop: 12/05/17 15:10 Albuterol/Ipratropium (Duoneb Neb) [address] [facility] Stop: 12/05/17 15:14 Last Admin: 10/09/17 19:05 Dose: 3 ml Aspirin (Aspirin Chewable) [address] [facility] Stop: 12/02/17 08:59 Last Admin: 10/09/17 08:46 Dose: 81 mg Bisacodyl (Dulcolax 10 Mg Supp) 10 mg RC DAILY PRN PRN Reason: Constipation Stop: 12/01/17 21:40 Chlorhexidine Gluconate (Peridex) 15 ml MM 0800,2200 [facility] Stop: 12/06/17 21:59 Last Admin: 10/09/17 08:46 Dose: 15 ml Hydralazine HCl (Apresoline) 25 mg GT TID PRN PRN Reason: SBP > 150 Stop: 12/01/17 21:40 Potassium Chloride 40 meq/Lidocaine HCl 25 mg/ Sodium Chloride 272.5 mls @ 68 mls/hr IV DAILY PRN PRN Reason: k level less than 3.2 Stop: 12/01/17 21:46 Last Admin: 10/08/17 08:39 Dose: 68 mls/hr Magnesium Sulfate (Magnesium Sulfate Premix) 2 gm in 50 mls @ 25 mls/hr IV DAILY PRN PRN Reason: Magnesium level less than 1.6 Stop: 12/01/17 21:46 Meropenem 500 mg/ Sodium (Chloride) 100 mls @ 100 mls/hr IV Q8HR [facility] Stop: 12/07/17 04:59 Last Infusion: 10/09/17 13:55 Dose: Infused Vancomycin HCl 0.75 gm/ Sodium (Chloride) 250 mls @ 165 mls/hr IV Q24H [facility] Stop: 12/07/17 09:59 Last Infusion: 10/09/17 12:05 Dose: Infused Potassium Chloride 10 meq/ (Sodium Chloride) 1,005 mls @ 125 mls/hr IV .Q8H3M [facility] Stop: 12/08/17 15:55 Last Admin: 10/09/17 17:00 Dose: 125 mls/hr Lactobacillus Rhamnosus (Culturelle 15b) [address] [facility] Stop: 12/05/17 08:59 Last Admin: 10/09/17 08:46 Dose: 1 each Levothyroxine Sodium (Synthroid) 0.[address] [facility] Stop: 12/02/17 07:29 Last Admin: 10/09/17 06:45 Dose: 0.05 mg Lorazepam (Ativan) 2 mg IVP Q4HR PRN; Protocol PRN Reason: Anxiety Stop: 12/01/17 21:46 Last Admin: 10/06/17 08:46 Dose: 2 mg Magnesium Hydroxide (Milk Of Magnesia) 30 ml GT HS PRN PRN Reason: Constipation Stop: 12/01/17 21:40 Methylprednisolone Sodium Succinate (Solu-Medrol) [address] [facility] Stop: 12/05/17 17:59 Last Admin: 10/09/17 17:37 Dose: 40 mg Metoprolol Tartrate (Lopressor) [address] [facility] Stop: 12/02/17 08:59 Last Admin: 10/09/17 17:37 Dose: Not Given Miscellaneous (Probiotic Screen) 1 ea MC PRN PRN PRN Reason: PROTOCOL Stop: 12/04/17 09:59 Miscellaneous (Vancomycin Iv Per Pharmacy) [address] [facility] Stop: 12/06/17 22:59 Miscellaneous (Vte Chemical Prophylaxis Screen/ Admission) 1 ea PRN PRN PRN Reason: PROTOCOL Stop: 12/07/17 14:31 Morphine Sulfate (Morphine) 2 mg IVP Q4H PRN PRN Reason: moderate pain Stop: 12/01/17 21:46 Ondansetron HCl (Zofran) 4 mg IVP Q6H PRN PRN Reason: Nausea / Vomiting Stop: 12/01/17 21:46 Pantoprazole Sodium (Protonix) [address] [facility] Stop: 12/05/17 16:59 Last Admin: 10/09/17 17:37 Dose: 40 mg Polyethylene Glycol (Miralax) [address] [facility] Stop: 12/04/17 10:14 Last Admin: 10/09/17 17:37 Dose: 17 gm Potassium Chloride (Potassium Chloride Elixir) 40 meq PO DAILY PRN PRN Reason: k level less than 3.5 Stop: 12/03/17 07:20 Last Admin: 10/06/17 08:47 Dose: 40 meq Sodium Phosphate (Fleet Enema) 135 ml RC Q48H PRN PRN Reason: Constipation Stop: 12/01/17 21:40 Last Admin: 10/09/17 09:40 Dose: 135 ml Zolpidem Tartrate (Ambien) 10 mg PO HS PRN PRN Reason: Insomnia Stop: 12/01/17 21:46 General: no acute distress, well developed, well nourished HEENT: atraumatic, normocephalic, PERRLA Neck: supple, no thyromegaly Cardiovascular: S1S2, regular Lungs: clear to auscultation bilaterally, clear to percussion Abdomen: soft, bowel sounds, no tender, no distended Extremities: no cyanosis, no clubbing Neurological: awake Skin: intact - Procedures Procedures: Procedures Procedure Code Date INSERT EMERGENCY AIRWAY 68529 10/02/17 INSERTION OF ENDOTRACHEAL AIRWAY INTO [place], VIA OPENING [id number] 10/02/17 RESPIRATORY VENTILATION, 24-96 CONSECUTIVE HOURS [id number] 10/02/17 VENT MGMT INPAT INIT DAY 10/02/17 VENT MGMT INPAT SUBQ DAY [id number] 10/02/17 Infectious Disease Assmt/Plan - Assessment Assessment: 1. Leukocytosis, respiratory failure, sepsis. 2. Aspiration pneumonia versus healthcare facility associated pneumonia. 3. Dementia. 4. COPD and COPD exacerbation. 5. Hypertension. 6. Acute respiratory failure on ventilator. - Plan Plan: continue meropenem and dc vancomycin. Sepsis workup. Nutritional Asmnt/Malnutr-PDOC - Dietary Evaluation Malnutrition Findings (Please click <Entered> for more info): Nutritional Asmnt/Malnutrition Start: 10/05/17 17: 05 Text: Status: Complete Freq: Document 10/05/17 17:05 GRETA (Rec: 10/05/17 17:26 [facility] [id number]) Nutritional Asmnt/Malnutrition Patient General Information Nutritional Screening High Risk Diagnosis aspiration PNA Pertinent Medical Hx/Surgical Hx alzheimer demtnia, COPD, HTN, dysphagia Subjective Information Pt seen resting in bed at time of visit. Received TF Nutren 1.0 fiber 20ml/hr continuous this morning. Notified RN we do not have this formula in stock. changed to Fibersource HN at 20ml/hr continuous. Per notes, pt had fecal impaction, on enema and golytely yesterday, had 5 times of liquidy brown BM. Current Diet Order/ Nutrition Support Fibersource HN at 20ml/hr continuous, providing 576kcal, 26g protein Pertinent Medications D5-0.45ns, culturelle, synthroid, Magnium, piperacillin, miralx, kcl Pertinent Labs 10/05 Na 146, K 3.3, Cl 114, BUN 27, Cr 1.0, Ca 8.1 Nutritional Hx/Data Height 1.78 m Height (Calculated Centimeters) 177.8 Current Weight (lbs) 54.885 kg Weight (Calculated Kilograms) 54.9 Weight (Calculated Grams) 43154.7 Ramer Body Weight 166 % Ramer Body Weight 73 Body Mass Index (BMI) 17.3 Weight Status Overweight GI Symptoms Last BM 10/05 x 4 Difficult in: None Skin Integrity/Comment: intact Estimated Nutritional Goals BEE in Kcals: Using Current wt Calories/Kcals/Kg 27-32 Kcals Calculated 8068-9828 Protein: Using Current wt Protein g/k.1-1.4 Protein Calculated 61-72 Fluid: ml 1650-1925ml (1ml/kcal) Nutritional Problem 1. Problem Problem inadequate intake from enteral feeding Etiology TF running at low rate d/t fecal impaction Signs/Symptoms: current TF meeting 35% of nutritional needs Malnutrition Alert Protein-Calorie Malnutrition N/A Is there a minimum of two criteria No selected? Query Text:Check all the applicable criteria. A minimum of two criteria are recommended for diagnosis of either severe or non-severe malnutrition. Intervention/Recommendation Comments 1. Continue with current TF regimen at this time. When medically appropriate, increase to goal rate of 50ml/ hr, providing 1440kcal and 65g protein, meeting 100% of nutritional needs. 2. Monitor TF rate, tolerance, wt weekly, skin integrity and labs 3. F/U as nam risk in 2-3 days, 10/07-10/08 Expected Outcomes/Goals Expected Outcomes/Goals 1. Pt to meet at least 75% of nutritional needs via nutrition support with tolerance 2. Wt stability, GI function to improve, skin to remain intact, labs to approach WNL.
[2017-10-09] MEDS ORDERED: DOPamine 400 MG/250 ML BAG IV PRN (19:31)
[2017-10-10] MEDS: Albuterol/Ipratropium Neb 3 ML AERS HHN SCH ×6 (03:28→23:21)
[2017-10-10] MEDS: Meropenem 500 MG in Sodium Chloride 0.9% 100 ML IV SCH (04:07)
[2017-10-10 04:57] LABS: MEAN CELL VOLUME 94.4 fl (80-99); MEAN CORPUSCULAR HEMOGLOBIN 30.9 pg (27.0-31.0); MEAN CORPUSCULAR HGB CONC 32.7 pg (28.0-36.0); MEAN PLATELET VOLUME 11.6 fl; PLATELET COUNT 139 Th/cmm (150-400); RED BLOOD COUNT 2.42 Mil/cmm (3.80-5.80); RED CELL DISTRIBUTION WIDTH 17.9 % (11.5-20.0); WHITE BLOOD COUNT 8.9 Th/cmm (4.8-10.8)
[2017-10-10 05:03] LABS: HEMOGLOBIN 7.5 gm/dL (12-16)
[2017-10-10 05:04] LABS: ANION GAP 10.6 (7.0-16.0); BUN - UREA NITROGEN 23 mg/dL (7-25); CALCIUM SERUM 7.8 mg/dL (8.6-10.3); CARBON DIOXIDE 18.9 mEq/L (21.0-31.0); CHLORIDE 118 mEq/L (98-107); CREATININE - SERUM 0.8 mg/dL (0.7-1.3); GLUCOSE 130 mg/dL (70-105); HEMATOCRIT 22.8 % (41.0-60); POTASSIUM SERUM 3.5 mEq/L (3.5-5.1); SODIUM SERUM 144 mEq/L (136-145)
[2017-10-10 05:18] LABS: BAND NEUTROPHILE 4 % (0-10); EOSINOPHIL 2 % (0-5); HYPOCHROMIA 1+; LYMPHOCYTE 8 % (20-50); MONOCYTE 6 % (2-10); NEUTROPHILS 80 % (40-80); PLATELET ESTIMATE ADEQUATE (NORMAL); POLYCHROMASIA 1+; TOTAL CELLS COUNTED 100
[2017-10-10] MEDS: methylPREDNISolone SS 40 mg Vial IVP SCH ×3 (05:30→17:27)
--- NOTE | 2017-10-10 05:45 | Progress Notes ---
DATE: 10/09/2017 SUBJECTIVE: The patient is resting comfortably in bed, does not appear to be in acute pain or distress at this time. The patient's signed a DNR form this morning with limited additional interventions. The patient's H and H is stable at 7.7. He continues to stay on the ventilator at this time. Sputum culture came back showing some yeast. PHYSICAL EXAMINATION: VITAL SIGNS: 97.4, pulse 69, blood pressure is 95/46, respiratory rate is 13. GENERAL: NAD. HEENT: PERRLA. EOMI. ET tube in place. NECK: Supple, no JVD. CARDIOVASCULAR: Regular rate and rhythm. RESPIRATORY: Decreased breath sounds bilaterally with normal air movement. ABDOMEN: Soft, nontender, nondistended, bowel sounds present in all 4 quadrants. G-tube in place. SKIN: No rashes. MUSCULOSKELETAL: Positive muscle tone. LABORATORY DATA: Hemoglobin 7.8. White blood cell count is 14.7. The potassium 3.6 and the sodium is 144. ASSESSMENT AND PLAN: Fecal impaction with obstipation, aspiration pneumonia, acute respiratory failure, anemia, chronic illness, muscle weakness, dysphagia, unsteady , sepsis, hypovolemic hypernatremia, chronic obstructive pulmonary disease, metabolic encephalopathy secondary to Alzheimer dementia exacerbation. Infectious Disease, GI following, continue the IV antibiotics. Cardiac echo was ordered. Sputum culture revealed some yeast. Continue vancomycin, Zosyn, levothyroxine for hypothyroidism, heparin subq for DVT prophylaxis. Antibiotics are vancomycin and meropenem. [facility]# [id number]
[2017-10-10] MEDS: Levothyroxine 0.05 Mg Tab GT SCH (08:29)
[2017-10-10] MEDS: Aspirin 81mg Chewable Tab GT SCH (08:29)
[2017-10-10] MEDS: Lactobacillus Rhamnosus GG 15 Billion CFU CAP.SPRINK PO SCH (08:29)
[2017-10-10] MEDS: POLYETHYLENE GLYCOL 3350 17 GM PACK PO SCH ×2 (08:29→17:27)
[2017-10-10] MEDS: Chlorhexidine Gluconate 0.12% 480mL Bottle MM SCH (08:30)
--- NOTE | 2017-10-10 08:40 | General Progress Note ---
Subjective - Review of Systems Service Date: 10/10/17 Subjective: Pt seen and eval. He's intubated. On SIMV mode. Has sig fecal impaction. Had a small bm this am after an anema. On dopamine drip at 4 mcg. No fevers or chills. ID, Gi, and Pulm following. WBC trending down. Discussed care with RN in detail. On IV Vanco. Objective - Results Result Diagrams: 10/10/17 04:10 10/10/17 04:10 Recent Labs: Laboratory Last Values WBC 8.9 Th/cmm (4.8-10.8) D 10/10/17 04:10 RBC 2.42 Mil/cmm (3.80-5.80) L 10/10/17 04:10 Hgb 7.5 gm/dL (12-16) L* 10/10/17 04:10 Hct 22.8 % (41.0-60) L 10/10/17 04:10 MCV 94.4 fl (80-99) 10/10/17 04:10 MCH 30.9 pg (27.0-31.0) 10/10/17 04:10 MCHC Differential 32.7 pg (28.0-36.0) 10/10/17 04:10 RDW 17.9 % (11.5-20.0) 10/10/17 04:10 Plt Count 139 Th/cmm (150-400) L 10/10/17 04:10 MPV 11.6 fl 10/10/17 04:10 Neutrophils % 65.4 % (40.0-80.0) 10/06/17 05:58 Band Neutrophils % 4 % (0-10) 10/10/17 04:10 Lymphocytes % 14.6 % (20.0-50.0) L 10/06/17 05:58 Monocytes % 7.1 % (2.0-10.0) 10/06/17 05:58 Eosinophils % 12.7 % (0.0-5.0) H 10/06/17 05:58 Basophils % 0.2 % (0.0-2.0) 10/06/17 05:58 Neutrophils (Manual) 80 % (40-80) 10/10/17 04:10 Lymphocytes 8 % (20-50) L 10/10/17 04:10 Monocytes 6 % (2-10) 10/10/17 04:10 Eosinophils 2 % (0-5) 10/10/17 04:10 Hypochromia 1+ 10/10/17 04:10 Platelet Estimate ADEQUATE (NORMAL) 10/10/17 04:10 Polychromasia 1+ 10/10/17 04:10 Poikilocytosis 1+ 10/08/17 04:15 Macrocytosis 1+ 10/08/17 04:15 PT 10.7 SECONDS (9.5-11.5) 10/02/17 19:43 INR 1.03 (0.5-1.4) 10/02/17 19:43 PTT (Actin FS) 27.6 SECONDS (26.0-38.0) 10/02/17 19:43 Specimen Source Arterial 10/08/17 08:50 Sample Site LB 10/08/17 08:50 pH 7.43 (7.35-7.45) 10/08/17 08:50 pCO2 33.0 mmHg (35.0-45.0) L 10/08/17 08:50 pO2 140.0 mmHg (80.0-100.0) H 10/08/17 08:50 HCO3 23.6 mEq/L (20.0-26.0) 10/08/17 08:50 Base Excess -1.8 mEq/L (-3.0-3.0) 10/08/17 08:50 O2 Saturation 99.0 % (92.0-100.0) 10/08/17 08:50 Ramiro Test pos 10/07/17 03:25 Vent Rate 14 10/08/17 08:50 Inspired O2 30 10/08/17 08:50 Tidal Volume 500 10/08/17 08:50 PEEP 5 10/08/17 08:50 Pressure (ins/psv/peep) n/a 10/07/17 03:25 Critical Value PW 10/08/17 08:50 Sodium 144 mEq/L (136-145) 10/10/17 04:10 Potassium 3.5 mEq/L (3.5-5.1) 10/10/17 04:10 Chloride 118 mEq/L (98-107) H 10/10/17 04:10 Carbon Dioxide 18.9 mEq/L (21.0-31.0) L 10/10/17 04:10 Anion Gap 10.6 (7.0-16.0) 10/10/17 04:10 BUN 23 mg/dL (7-25) 10/10/17 04:10 Creatinine 0.8 mg/dL (0.7-1.3) 10/10/17 04:10 Est GFR ( Amer) TNP 10/10/17 04:10 Est GFR (Non-Af Amer) TNP 10/10/17 04:10 BUN/Creatinine Ratio 28.8 10/10/17 04:10 Glucose 130 mg/dL (70-105) H 10/10/17 04:10 Whole Bld Lactic Acid 1.94 mmol/L (0.60-1.99) 10/07/17 16:26 Calcium 7.8 mg/dL (8.6-10.3) L 10/10/17 04:10 Urine Source CLEAN C 10/04/17 10:00 Urine Color YELLOW 10/04/17 10:00 Urine Clarity HAZY (CLEAR) 10/04/17 10:00 Urine pH 6.5 (4.6 - 8.0) 10/04/17 10:00 Ur Specific [place] 1.020 (1.005-1.030) 10/04/17 10:00 Urine Protein TRACE mg/dL (NEGATIVE) 10/04/17 10:00 Urine Glucose (UA) NEGATIVE mg/dL (NEGATIVE) 10/04/17 10:00 Urine Ketones NEGATIVE mg/dL (NEGATIVE) 10/04/17 10:00 Urine Blood NEGATIVE (NEGATIVE) 10/04/17 10:00 Urine Nitrate NEGATIVE (NEGATIVE) 10/04/17 10:00 Urine Bilirubin NEGATIVE (NEGATIVE) 10/04/17 10:00 Urine Urobilinogen 4.0 E.U./dL (0.2 - 1.0) H 10/04/17 10:00 Ur Leukocyte Esterase NEGATIVE (NEGATIVE) 10/04/17 10:00 Urine RBC 0-2 /hpf (0-5) H 10/04/17 10:00 Urine WBC 2-5 /hpf (0-5) H 10/04/17 10:00 Ur Epithelial Cells OCCASIONAL /lpf (FEW) 10/04/17 10:00 Urine Bacteria FEW /hpf (NONE SEEN) 10/04/17 10:00 Stool Occult Blood POSITIVE (NEGATIVE) H 10/08/17 19:00 Influenza A (Rapid) NEG FOR INF A 10/04/17 02:53 Influenza B (Rapid) NEG FOR INF B 10/04/17 02:53 - Physical Exam Vitals and I&O: Vital Signs Temp 98 F 10/10/17 06:00 Pulse 77 10/10/17 08:30 Resp 12 10/10/17 06:00 BP 113/63 10/10/17 08:30 Pulse Ox 30 10/10/17 06:00 Intake & Output 10/09/17 10/10/17 10/10/17 18:59 06:59 18:59 Intake Total 650 1205 Output Total 400 700 Balance 250 505 Weight (lbs) 61.377 kg 61.292 kg Intake: Intake, IV Amount 350 1205 Meropenem 500 mg In 100 200 Sodium Chloride 0.9% 100 ml @ 100 mls/hr IV Q8HR [facility] Rx#:[id number] Potassium Chloride 10 meq 1005 In Sodium Chloride 0.9% 1,000 ml @ 125 mls/hr IV .Q8H3M [facility] Rx#:[id number] Vancomycin HCl 0.75 gm In 250 Sodium Chloride 0.9% 250 ml @ 165 mls/hr IV Q24H [facility] Rx#:[id number] Other 300 Output: Urine 400 700 Other: # Bowel Movements 4 2 Stool Characteristics Soft Soft Liquid Liquid Brown Brown Green Green Active Medications: Current Medications Acetaminophen (Tylenol) 650 mg GT Q6HR PRN PRN Reason: Pain or Fever >101 Stop: 12/01/17 21:40 Last Admin: 10/06/17 16:05 Dose: 650 mg Albuterol/Ipratropium (Duoneb Neb) 3 ml HHN Q4HRT PRN PRN Reason: Wheezing Stop: 12/05/17 15:10 Albuterol/Ipratropium (Duoneb Neb) 3 ml HHN Q4HRT [facility] Stop: 12/05/17 15:14 Last Admin: 10/10/17 07:58 Dose: 3 ml Aspirin (Aspirin Chewable) 81 mg GT DAILY [facility] Stop: 12/02/17 08:59 Last Admin: 10/10/17 08:29 Dose: 81 mg Bisacodyl (Dulcolax 10 Mg Supp) 10 mg RC DAILY PRN PRN Reason: Constipation Stop: 12/01/17 21:40 Chlorhexidine Gluconate (Peridex) 15 ml MM 0800,2200 [facility] Stop: 12/06/17 21:59 Last Admin: 10/10/17 08:30 Dose: 15 ml Hydralazine HCl (Apresoline) 25 mg GT TID PRN PRN Reason: SBP > 150 Stop: 12/01/17 21:40 Potassium Chloride 40 meq/Lidocaine HCl 25 mg/ Sodium Chloride 272.5 mls @ 68 mls/hr IV DAILY PRN PRN Reason: k level less than 3.2 Stop: 12/01/17 21:46 Last Admin: 10/08/17 08:39 Dose: 68 mls/hr Magnesium Sulfate (Magnesium Sulfate Premix) 2 gm in 50 mls @ 25 mls/hr IV DAILY PRN PRN Reason: Magnesium level less than 1.6 Stop: 12/01/17 21:46 Meropenem 500 mg/ Sodium (Chloride) 100 mls @ 100 mls/hr IV Q8HR [facility] Stop: 12/07/17 04:59 Last Infusion: 10/10/17 05:10 Dose: Infused Potassium Chloride 10 meq/ (Sodium Chloride) 1,005 mls @ 125 mls/hr IV .Q8H3M [facility] Stop: 12/08/17 15:55 Last Admin: 10/10/17 03:00 Dose: 125 mls/hr Dopamine HCl/Dextrose (Dopamine) 400 mg in 250 mls @ 8.437 mls/hr IV TITR PRN; Protocol; 4 MCG/KG/MIN PRN Reason: BP MAINTENANCE (PER PROTOCOL) Stop: 12/08/17 19:30 Lactobacillus Rhamnosus (Culturelle 15b) 1 each PO DAILY [facility] Stop: 12/05/17 08:59 Last Admin: 10/10/17 08:29 Dose: 1 each Levothyroxine Sodium (Synthroid) 0.05 mg GT QDAC [facility] Stop: 12/02/17 07:29 Last Admin: 10/10/17 08:29 Dose: 0.05 mg Lorazepam (Ativan) 2 mg IVP Q4HR PRN; Protocol PRN Reason: Anxiety Stop: 12/01/17 21:46 Last Admin: 10/10/17 03:35 Dose: 2 mg Magnesium Hydroxide (Milk Of Magnesia) 30 ml GT HS PRN PRN Reason: Constipation Stop: 12/01/17 21:40 Methylprednisolone Sodium Succinate (Solu-Medrol) 40 mg IVP Q6HR [facility] Stop: 12/05/17 17:59 Last Admin: 10/10/17 05:30 Dose: 40 mg Metoprolol Tartrate (Lopressor) 25 mg GT BID [facility] Stop: 12/02/17 08:59 Last Admin: 10/10/17 08:30 Dose: Not Given Miscellaneous (Probiotic Screen) 1 ea PRN PRN PRN Reason: PROTOCOL Stop: 12/04/17 09:59 Miscellaneous (Vte Chemical Prophylaxis Screen/ Admission) 1 ea PRN PRN PRN Reason: PROTOCOL Stop: 12/07/17 14:31 Morphine Sulfate (Morphine) 2 mg IVP Q4H PRN PRN Reason: moderate pain Stop: 12/01/17 21:46 Ondansetron HCl (Zofran) 4 mg IVP Q6H PRN PRN Reason: Nausea / Vomiting Stop: 12/01/17 21:46 Pantoprazole Sodium (Protonix) 40 mg IVP BID [facility] Stop: 12/05/17 16:59 Last Admin: 10/10/17 08:29 Dose: 40 mg Polyethylene Glycol (Miralax) 17 gm PO BID [facility] Stop: 12/04/17 10:14 Last Admin: 10/10/17 08:29 Dose: 17 gm Potassium Chloride (Potassium Chloride Elixir) 40 meq PO DAILY PRN PRN Reason: k level less than 3.5 Stop: 12/03/17 07:20 Last Admin: 10/06/17 08:47 Dose: 40 meq Sodium Phosphate (Fleet Enema) 135 ml RC Q48H PRN PRN Reason: Constipation Stop: 12/01/17 21:40 Last Admin: 10/09/17 09:40 Dose: 135 ml Zolpidem Tartrate (Ambien) 10 mg PO HS PRN PRN Reason: Insomnia Stop: 12/01/17 21:46 General: Mild distress HEENT: Atraumatic, PERRLA, Other (intubated, ET tube in plce) Neck: Supple, no JVD, no Thyromegaly Cardiovascular: Regular rate, Normal S1, Normal S2 Lungs: Other (On vent. Decreased BS BL.) Abdomen: Other (mild abd distension. G tube present.) Extremities: no Clubbing, no Edema Neurological: Other (Pt intubated. No awake or alert. ) Skin: no Rash - Procedures Procedures: Procedures Procedure Code Date INSERT EMERGENCY AIRWAY 98122 10/02/17 INSERTION OF ENDOTRACHEAL AIRWAY INTO TRACHEA, VIA OPENING [id number] 10/02/17 RESPIRATORY VENTILATION, 24-96 CONSECUTIVE HOURS [id number] 10/02/17 VENT MGMT INPAT INIT DAY 10/02/17 VENT MGMT INPAT SUBQ DAY 10/02/17 Assessment/Plan - Assessment Assessment: Acute Resp fail Sepsis Hypovolemic Hypernatremia HTN COPD Dysphagia Fecal impaction ME TITUS with Exac Poss asp pna - Plan Plan: Pt is intubated. Awakens to physical stimulus. No on any sedation. Vent settings reviewed: SIMV mode. PEEP 5. PS 10. FiO2 35%. TV 500 GI saw pt and ordered water enema and Golytely. He had a small BM this am. On IV Vanco. ID, Pulm, and Gi following. FU on cultures. WBC trending down. Gt is clamped. Afebrile. Nutritional Asmnt/Malnutr-PDOC - Dietary Evaluation Malnutrition Findings (Please click <Entered> for more info): Nutritional Asmnt/Malnutrition Start: 10/05/17 17: 05 Text: Status: Complete Freq: Document 10/05/17 17:05 [facility] (Rec: 10/05/17 17:26 HENG [id number]) Nutritional Asmnt/Malnutrition Patient General Information Nutritional Screening High Risk Diagnosis aspiration PNA Pertinent Medical Hx/Surgical Hx alzheimer demtnia, COPD, HTN, dysphagia Subjective Information Pt seen resting in bed at time of visit. Received TF Nutren 1.0 fiber 20ml/hr continuous this morning. Notified RN we do not have this formula in stock. changed to Fibersource HN at 20ml/hr continuous. Per notes, pt had fecal impaction, on enema and golytely yesterday, had 5 times of liquidy brown BM. Current Diet Order/ Nutrition Support Fibersource HN at 20ml/hr continuous, providing 576kcal, 26g protein Pertinent Medications D5-0.45ns, culturelle, synthroid, Magnium, piperacillin, miralx, kcl Pertinent Labs 1/18 Na 146, K 3.3, Cl 114, BUN 27, Cr 1.0, Ca 8.1 Nutritional Hx/Data Height 1.78 m Height (Calculated Centimeters) 177.8 Current Weight (lbs) 54.885 kg Weight (Calculated Kilograms) 54.9 Weight (Calculated Grams) 38788.7 Williams Body Weight 166 % Williams Body Weight 73 Body Mass Index (BMI) 17.3 Weight Status Overweight GI Symptoms Last BM 10/05 x 4 Difficult in: None Skin Integrity/Comment: intact Estimated Nutritional Goals BEE in Kcals: Using Current wt Calories/Kcals/Kg 27-32 Kcals Calculated 9623-3187 Protein: Using Current wt Protein g/k.1-1.4 Protein Calculated 61-72 Fluid: ml 1650-1925ml (1ml/kcal) Nutritional Problem 1. Problem Problem inadequate intake from enteral feeding Etiology TF running at low rate d/t fecal impaction Signs/Symptoms: current TF meeting 35% of nutritional needs Malnutrition Alert Protein-Calorie Malnutrition N/A Is there a minimum of two criteria No selected? Query Text:Check all the applicable criteria. A minimum of two criteria are recommended for diagnosis of either severe or non-severe malnutrition. Intervention/Recommendation Comments 1. Continue with current TF regimen at this time. When medically appropriate, increase to goal rate of 50ml/ hr, providing 1440kcal and 65g protein, meeting 100% of nutritional needs. 2. Monitor TF rate, tolerance, wt weekly, skin integrity and labs 3. F/U as nam risk in 2-3 days, 10/07-10/08 Expected Outcomes/Goals Expected Outcomes/Goals 1. Pt to meet at least 75% of nutritional needs via nutrition support with tolerance 2. Wt stability, GI function to improve, skin to remain intact, labs to approach WNL.
[2017-10-10 09:23] LABS: pH 7.38 (7.35-7.45)
[2017-10-10 09:24] LABS: ALLEN TEST Positive
--- NOTE | 2017-10-10 09:27 | GI Progress Note ---
Subjective - Review of Systems Service Date: 10/10/17 Subjective: Continue to have soft BMs, but KUB still shows significant impaction Objective - Results Result Diagrams: 10/10/17 04:10 10/10/17 04:10 Recent Labs: Laboratory Last Values WBC 8.9 Th/cmm (4.8-10.8) D 10/10/17 04:10 RBC 2.42 Mil/cmm (3.80-5.80) L 10/10/17 04:10 Hgb 7.5 gm/dL (12-16) L* 10/10/17 04:10 Hct 22.8 % (41.0-60) L 10/10/17 04:10 MCV 94.4 fl (80-99) 10/10/17 04:10 MCH 30.9 pg (27.0-31.0) 10/10/17 04:10 MCHC Differential 32.7 pg (28.0-36.0) 10/10/17 04:10 RDW 17.9 % (11.5-20.0) 10/10/17 04:10 Plt Count 139 Th/cmm (150-400) L 10/10/17 04:10 MPV 11.6 fl 10/10/17 04:10 Neutrophils % 65.4 % (40.0-80.0) 10/06/17 05:58 Band Neutrophils % 4 % (0-10) 10/10/17 04:10 Lymphocytes % 14.6 % (20.0-50.0) L 10/06/17 05:58 Monocytes % 7.1 % (2.0-10.0) 10/06/17 05:58 Eosinophils % 12.7 % (0.0-5.0) H 10/06/17 05:58 Basophils % 0.2 % (0.0-2.0) 10/06/17 05:58 Neutrophils (Manual) 80 % (40-80) 10/10/17 04:10 Lymphocytes 8 % (20-50) L 10/10/17 04:10 Monocytes 6 % (2-10) 10/10/17 04:10 Eosinophils 2 % (0-5) 10/10/17 04:10 Hypochromia 1+ 10/10/17 04:10 Platelet Estimate ADEQUATE (NORMAL) 10/10/17 04:10 Polychromasia 1+ 10/10/17 04:10 Poikilocytosis 1+ 10/08/17 04:15 Macrocytosis 1+ 10/08/17 04:15 PT 10.7 SECONDS (9.5-11.5) 10/02/17 19:43 INR 1.03 (0.5-1.4) 10/02/17 19:43 PTT (Actin FS) 27.6 SECONDS (26.0-38.0) 10/02/17 19:43 Specimen Source Arterial 10/08/17 08:50 Sample Site LB 10/08/17 08:50 pH 7.43 (7.35-7.45) 10/08/17 08:50 pCO2 33.0 mmHg (35.0-45.0) L 10/08/17 08:50 pO2 140.0 mmHg (80.0-100.0) H 10/08/17 08:50 HCO3 23.6 mEq/L (20.0-26.0) 10/08/17 08:50 Base Excess -1.8 mEq/L (-3.0-3.0) 10/08/17 08:50 O2 Saturation 99.0 % (92.0-100.0) 10/08/17 08:50 Ramiro Test pos 10/07/17 03:25 Vent Rate 14 10/08/17 08:50 Inspired O2 30 10/08/17 08:50 Tidal Volume 500 10/08/17 08:50 PEEP 5 10/08/17 08:50 Pressure (ins/psv/peep) n/a 10/07/17 03:25 Critical Value PW 10/08/17 08:50 Sodium 144 mEq/L (136-145) 10/10/17 04:10 Potassium 3.5 mEq/L (3.5-5.1) 10/10/17 04:10 Chloride 118 mEq/L (98-107) H 10/10/17 04:10 Carbon Dioxide 18.9 mEq/L (21.0-31.0) L 10/10/17 04:10 Anion Gap 10.6 (7.0-16.0) 10/10/17 04:10 BUN 23 mg/dL (7-25) 10/10/17 04:10 Creatinine 0.8 mg/dL (0.7-1.3) 10/10/17 04:10 Est GFR ( Amer) TNP 10/10/17 04:10 Est GFR (Non-Af Amer) TNP 10/10/17 04:10 BUN/Creatinine Ratio 28.8 10/10/17 04:10 Glucose 130 mg/dL (70-105) H 10/10/17 04:10 Whole Bld Lactic Acid 1.94 mmol/L (0.60-1.99) 10/07/17 16:26 Calcium 7.8 mg/dL (8.6-10.3) L 10/10/17 04:10 Urine Source CLEAN C 10/04/17 10:00 Urine Color YELLOW 10/04/17 10:00 Urine Clarity HAZY (CLEAR) 10/04/17 10:00 Urine pH 6.5 (4.6 - 8.0) 10/04/17 10:00 Ur Specific [place] 1.020 (1.005-1.030) 10/04/17 10:00 Urine Protein TRACE mg/dL (NEGATIVE) 10/04/17 10:00 Urine Glucose (UA) NEGATIVE mg/dL (NEGATIVE) 10/04/17 10:00 Urine Ketones NEGATIVE mg/dL (NEGATIVE) 10/04/17 10:00 Urine Blood NEGATIVE (NEGATIVE) 10/04/17 10:00 Urine Nitrate NEGATIVE (NEGATIVE) 10/04/17 10:00 Urine Bilirubin NEGATIVE (NEGATIVE) 10/04/17 10:00 Urine Urobilinogen 4.0 E.U./dL (0.2 - 1.0) H 10/04/17 10:00 Ur Leukocyte Esterase NEGATIVE (NEGATIVE) 10/04/17 10:00 Urine RBC 0-2 /hpf (0-5) H 10/04/17 10:00 Urine WBC 2-5 /hpf (0-5) H 10/04/17 10:00 Ur Epithelial Cells OCCASIONAL /lpf (FEW) 10/04/17 10:00 Urine Bacteria FEW /hpf (NONE SEEN) 10/04/17 10:00 Stool Occult Blood POSITIVE (NEGATIVE) H 10/08/17 19:00 Influenza A (Rapid) NEG FOR INF A 10/04/17 02:53 Influenza B (Rapid) NEG FOR INF B 10/04/17 02:53 - Physical Exam Vitals and I&O: Vital Signs Temp 98 F 10/10/17 06:00 Pulse 77 10/10/17 08:30 Resp 12 10/10/17 06:00 BP 113/63 10/10/17 08:30 Pulse Ox 30 10/10/17 06:00 Intake & Output 10/09/17 10/10/17 10/10/17 18:59 06:59 18:59 Intake Total 650 1205 Output Total 400 700 Balance 250 505 Weight (lbs) 61.377 kg 61.292 kg Intake: Intake, IV Amount 350 1205 Meropenem 500 mg In 100 200 Sodium Chloride 0.9% 100 ml @ 100 mls/hr IV Q8HR [facility] Rx#:[id number] Potassium Chloride 10 meq 1005 In Sodium Chloride 0.9% 1,000 ml @ 125 mls/hr IV .Q8H3M [facility] Rx#:[id number] Vancomycin HCl 0.75 gm In 250 Sodium Chloride 0.9% 250 ml @ 165 mls/hr IV Q24H [facility] Rx#:[id number] Other 300 Output: Urine 400 700 Other: # Bowel Movements 4 2 Stool Characteristics Soft Soft Liquid Liquid Brown Brown Green Green Active Medications: Current Medications Acetaminophen (Tylenol) 650 mg GT Q6HR PRN PRN Reason: Pain or Fever >101 Stop: 12/01/17 21:40 Last Admin: 10/06/17 16:05 Dose: 650 mg Albuterol/Ipratropium (Duoneb Neb) 3 ml HHN Q4HRT PRN PRN Reason: Wheezing Stop: 12/05/17 15:10 Albuterol/Ipratropium (Duoneb Neb) 3 ml HHN Q4HRT [facility] Stop: 12/05/17 15:14 Last Admin: 10/10/17 07:58 Dose: 3 ml Aspirin (Aspirin Chewable) 81 mg GT DAILY [facility] Stop: 12/02/17 08:59 Last Admin: 10/10/17 08:29 Dose: 81 mg Bisacodyl (Dulcolax 10 Mg Supp) 10 mg RC DAILY PRN PRN Reason: Constipation Stop: 12/01/17 21:40 Chlorhexidine Gluconate (Peridex) 15 ml MM 0800,2200 [facility] Stop: 12/06/17 21:59 Last Admin: 10/10/17 08:30 Dose: 15 ml Potassium Chloride 40 meq/Lidocaine HCl 25 mg/ Sodium Chloride 272.5 mls @ 68 mls/hr IV DAILY PRN PRN Reason: k level less than 3.2 Stop: 12/01/17 21:46 Last Admin: 10/08/17 08:39 Dose: 68 mls/hr Magnesium Sulfate (Magnesium Sulfate Premix) 2 gm in 50 mls @ 25 mls/hr IV DAILY PRN PRN Reason: Magnesium level less than 1.6 Stop: 12/01/17 21:46 Meropenem 500 mg/ Sodium (Chloride) 100 mls @ 100 mls/hr IV Q8HR [facility] Stop: 12/07/17 04:59 Last Infusion: 10/10/17 05:10 Dose: Infused Potassium Chloride 10 meq/ (Sodium Chloride) 1,005 mls @ 125 mls/hr IV .Q8H3M [facility] Stop: 12/08/17 15:55 Last Admin: 10/10/17 03:00 Dose: 125 mls/hr Dopamine HCl/Dextrose (Dopamine) 400 mg in 250 mls @ 8.437 mls/hr IV TITR PRN; Protocol; 4 MCG/KG/MIN PRN Reason: BP MAINTENANCE (PER PROTOCOL) Stop: 12/08/17 19:30 Lactobacillus Rhamnosus (Culturelle 15b) 1 each PO DAILY [facility] Stop: 12/05/17 08:59 Last Admin: 10/10/17 08:29 Dose: 1 each Levothyroxine Sodium (Synthroid) 0.05 mg GT QDAC [facility] Stop: 12/02/17 07:29 Last Admin: 10/10/17 08:29 Dose: 0.05 mg Lorazepam (Ativan) 2 mg IVP Q4HR PRN; Protocol PRN Reason: Anxiety Stop: 12/01/17 21:46 Last Admin: 10/10/17 03:35 Dose: 2 mg Magnesium Hydroxide (Milk Of Magnesia) 30 ml GT HS PRN PRN Reason: Constipation Stop: 12/01/17 21:40 Methylprednisolone Sodium Succinate (Solu-Medrol) 40 mg IVP Q6HR [facility] Stop: 12/05/17 17:59 Last Admin: 10/10/17 05:30 Dose: 40 mg Metoprolol Tartrate (Lopressor) 25 mg GT BID [facility] Stop: 12/02/17 08:59 Last Admin: 10/10/17 08:30 Dose: Not Given Miscellaneous (Probiotic Screen) 1 ea MC PRN PRN PRN Reason: PROTOCOL Stop: 12/04/17 09:59 Miscellaneous (Vte Chemical Prophylaxis Screen/ Admission) 1 ea MC PRN PRN PRN Reason: PROTOCOL Stop: 12/07/17 14:31 Morphine Sulfate (Morphine) 2 mg IVP Q4H PRN PRN Reason: moderate pain Stop: 12/01/17 21:46 Ondansetron HCl (Zofran) 4 mg IVP Q6H PRN PRN Reason: Nausea / Vomiting Stop: 12/01/17 21:46 Pantoprazole Sodium (Protonix) 40 mg IVP BID [facility] Stop: 12/05/17 16:59 Last Admin: 10/10/17 08:29 Dose: 40 mg Polyethylene Glycol (Miralax) 17 gm PO BID [facility] Stop: 12/04/17 10:14 Last Admin: 10/10/17 08:29 Dose: 17 gm Potassium Chloride (Potassium Chloride Elixir) 40 meq PO DAILY PRN PRN Reason: k level less than 3.5 Stop: 12/03/17 07:20 Last Admin: 10/06/17 08:47 Dose: 40 meq Sodium Phosphate (Fleet Enema) 135 ml RC Q48H PRN PRN Reason: Constipation Stop: 12/01/17 21:40 Last Admin: 10/09/17 09:40 Dose: 135 ml Zolpidem Tartrate (Ambien) 10 mg PO HS PRN PRN Reason: Insomnia Stop: 12/01/17 21:46 General: Alert, Mild distress HEENT: Atraumatic, PERRLA, Other (intubated, ET tube in plce) Neck: Supple, no JVD, no Thyromegaly Cardiovascular: Regular rate Lungs: Other (On vent. Decreased BS BL.) Abdomen: Soft, Other (mild abd distension. G tube present.) Extremities: no Clubbing, no Edema Neurological: Other (Pt intubated. No awake or alert. ) Skin: no Rash - Procedures Procedures: Procedures Procedure Code Date INSERT EMERGENCY AIRWAY 88520 10/02/17 INSERTION OF ENDOTRACHEAL AIRWAY INTO TRACHEA, VIA OPENING [id number] 10/02/17 RESPIRATORY VENTILATION, 24-96 CONSECUTIVE HOURS [id number] 10/02/17 VENT MGMT INPAT INIT DAY 10/02/17 VENT MGMT INPAT SUBQ DAY 10/02/17 Assessment/Plan - Assessment Assessment: # Fecal impaction # Abd distension # Possible pneumonia # Anemia CT and KUB show large fecal impaction. Now s/p several enemas and golytely bowel prep and is having liquid stool. KUB on 10/04 shows some improvement although still large amount of stool. No overt GI bleeding, although pt has had some blood loss from his trach. OB stool occult is positive, but this is expected given he has a large fecal impaction. # Respiratory failure, possible pneumonia Transferred to ICU 10/06 for increased respiratory distress, and now intubated. Plan: - would not act on stool OB positive without evidence of overt GI bleeding. Fecal impaction will cause a stool occult positive - will send iron labs, if deficient, he could benefit from IV iron supplementation - Will give another 4L golytely today given persistant stool burden, suggest rectal tube to keep perianal area clean - management of pneumonia as per primary - KUB today
--- NOTE | 2017-10-10 09:42 | Diagnostic Imaging Report ---
Portable chest x-ray HISTORY: Shortness of breath Compared to prior exam of October 08, 2017, there remains elevation of the right hemidiaphragm. No focal pulmonary processes are seen. An endotracheal tube tip is approximately 3.5 cm above the christopher. IMPRESSION: 1. No significant change in the cardiopulmonary status. No focal pulmonary processes.
--- NOTE | 2017-10-10 11:25 | Infectious Disease Prog Note ---
Infectious Disease Subjective - Review of Systems Service Date: 10/10/17 Subjective: There is no fever. intubated orally, on vent. doing better. Infectious Disease Objective - Results Result Diagrams: 10/10/17 04:10 10/10/17 04:10 Recent Labs: Laboratory Last Values WBC 8.9 Th/cmm (4.8-10.8) D 10/10/17 04:10 RBC 2.42 Mil/cmm (3.80-5.80) L 10/10/17 04:10 Hgb 7.5 gm/dL (12-16) L* 10/10/17 04:10 Hct 22.8 % (41.0-60) L 10/10/17 04:10 MCV 94.4 fl (80-99) 10/10/17 04:10 MCH 30.9 pg (27.0-31.0) 10/10/17 04:10 MCHC Differential 32.7 pg (28.0-36.0) 10/10/17 04:10 RDW 17.9 % (11.5-20.0) 10/10/17 04:10 Plt Count 139 Th/cmm (150-400) L 10/10/17 04:10 MPV 11.6 fl 10/10/17 04:10 Neutrophils % 65.4 % (40.0-80.0) 10/06/17 05:58 Band Neutrophils % 4 % (0-10) 10/10/17 04:10 Lymphocytes % 14.6 % (20.0-50.0) L 10/06/17 05:58 Monocytes % 7.1 % (2.0-10.0) 10/06/17 05:58 Eosinophils % 12.7 % (0.0-5.0) H 10/06/17 05:58 Basophils % 0.2 % (0.0-2.0) 10/06/17 05:58 Neutrophils (Manual) 80 % (40-80) 10/10/17 04:10 Lymphocytes 8 % (20-50) L 10/10/17 04:10 Monocytes 6 % (2-10) 10/10/17 04:10 Eosinophils 2 % (0-5) 10/10/17 04:10 Hypochromia 1+ 10/10/17 04:10 Platelet Estimate ADEQUATE (NORMAL) 10/10/17 04:10 Polychromasia 1+ 10/10/17 04:10 Poikilocytosis 1+ 10/08/17 04:15 Macrocytosis 1+ 10/08/17 04:15 PT 10.7 SECONDS (9.5-11.5) 10/02/17 19:43 INR 1.03 (0.5-1.4) 10/02/17 19:43 PTT (Actin FS) 27.6 SECONDS (26.0-38.0) 10/02/17 19:43 Specimen Source Arterial 10/10/17 09:02 Sample Site Left Radial 10/10/17 09:02 pH 7.38 (7.35-7.45) 10/10/17 09:02 pCO2 33.0 mmHg (35.0-45.0) L 10/10/17 09:02 pO2 104.0 mmHg (80.0-100.0) H 10/10/17 09:02 HCO3 21.2 mEq/L (20.0-26.0) 10/10/17 09:02 Base Excess -4.8 mEq/L (-3.0-3.0) L 10/10/17 09:02 O2 Saturation 98.0 % (92.0-100.0) 10/10/17 09:02 Ramiro Test Positive 10/10/17 09:02 Vent Rate 6 10/10/17 09:02 Inspired O2 30 10/10/17 09:02 Tidal Volume 500 10/10/17 09:02 PEEP 5 10/10/17 09:02 Pressure (ins/psv/peep) 10 10/10/17 09:02 Critical Value LZHANG 10/10/17 09:02 Sodium 144 mEq/L (136-145) 10/10/17 04:10 Potassium 3.5 mEq/L (3.5-5.1) 10/10/17 04:10 Chloride 118 mEq/L (98-107) H 10/10/17 04:10 Carbon Dioxide 18.9 mEq/L (21.0-31.0) L 10/10/17 04:10 Anion Gap 10.6 (7.0-16.0) 10/10/17 04:10 BUN 23 mg/dL (7-25) 10/10/17 04:10 Creatinine 0.8 mg/dL (0.7-1.3) 10/10/17 04:10 Est GFR ( Amer) TNP 10/10/17 04:10 Est GFR (Non-Af Amer) TNP 10/10/17 04:10 BUN/Creatinine Ratio 28.8 10/10/17 04:10 Glucose 130 mg/dL (70-105) H 10/10/17 04:10 Whole Bld Lactic Acid 1.94 mmol/L (0.60-1.99) 10/07/17 16:26 Calcium 7.8 mg/dL (8.6-10.3) L 10/10/17 04:10 Urine Source CLEAN C 10/04/17 10:00 Urine Color YELLOW 10/04/17 10:00 Urine Clarity HAZY (CLEAR) 10/04/17 10:00 Urine pH 6.5 (4.6 - 8.0) 10/04/17 10:00 Ur Specific [place] 1.020 (1.005-1.030) 10/04/17 10:00 Urine Protein TRACE mg/dL (NEGATIVE) 10/04/17 10:00 Urine Glucose (UA) NEGATIVE mg/dL (NEGATIVE) 10/04/17 10:00 Urine Ketones NEGATIVE mg/dL (NEGATIVE) 10/04/17 10:00 Urine Blood NEGATIVE (NEGATIVE) 10/04/17 10:00 Urine Nitrate NEGATIVE (NEGATIVE) 10/04/17 10:00 Urine Bilirubin NEGATIVE (NEGATIVE) 10/04/17 10:00 Urine Urobilinogen 4.0 E.U./dL (0.2 - 1.0) H 10/04/17 10:00 Ur Leukocyte Esterase NEGATIVE (NEGATIVE) 10/04/17 10:00 Urine RBC 0-2 /hpf (0-5) H 10/04/17 10:00 Urine WBC 2-5 /hpf (0-5) H 10/04/17 10:00 Ur Epithelial Cells OCCASIONAL /lpf (FEW) 10/04/17 10:00 Urine Bacteria FEW /hpf (NONE SEEN) 10/04/17 10:00 Stool Occult Blood POSITIVE (NEGATIVE) H 10/08/17 19:00 Influenza A (Rapid) NEG FOR INF A 10/04/17 02:53 Influenza B (Rapid) NEG FOR INF B 10/04/17 02:53 - Physical Exam Vitals and I&O: Vital Signs Temp 98.6 F 10/10/17 08:00 Pulse 71 10/10/17 11:00 Resp 20 10/10/17 11:00 BP 108/49 10/10/17 11:00 Pulse Ox 99 10/10/17 11:00 Intake & Output 10/09/17 10/10/17 10/10/17 18:59 06:59 18:59 Intake Total 650 1205 Output Total 400 700 Balance 250 505 Weight (lbs) 61.377 kg 61.292 kg Intake: Intake, IV Amount 350 1205 Meropenem 500 mg In 100 200 Sodium Chloride 0.9% 100 ml @ 100 mls/hr IV Q8HR [facility] Rx#:[id number] Potassium Chloride 10 meq 1005 In Sodium Chloride 0.9% 1,000 ml @ 125 mls/hr IV .Q8H3M [facility] Rx#:[id number] Vancomycin HCl 0.75 gm In 250 Sodium Chloride 0.9% 250 ml @ 165 mls/hr IV Q24H [facility] Rx#:[id number] Other 300 Output: Urine 400 700 Other: # Bowel Movements 4 2 Stool Characteristics Soft Soft Liquid Liquid Liquid Brown Brown Brown Green Green Active Medications: Current Medications Acetaminophen (Tylenol) 650 mg GT Q6HR PRN PRN Reason: Pain or Fever >101 Stop: 12/01/17 21:40 Last Admin: 10/06/17 16:05 Dose: 650 mg Albuterol/Ipratropium (Duoneb Neb) 3 ml HHN Q4HRT PRN PRN Reason: Wheezing Stop: 12/05/17 15:10 Albuterol/Ipratropium (Duoneb Neb) 3 ml HHN Q4HRT [facility] Stop: 12/05/17 15:14 Last Admin: 10/10/17 07:58 Dose: 3 ml Aspirin (Aspirin Chewable) 81 mg GT DAILY [facility] Stop: 12/02/17 08:59 Last Admin: 10/10/17 08:29 Dose: 81 mg Bisacodyl (Dulcolax 10 Mg Supp) 10 mg RC DAILY PRN PRN Reason: Constipation Stop: 12/01/17 21:40 Chlorhexidine Gluconate (Peridex) 15 ml MM 0800,2200 [facility] Stop: 12/06/17 21:59 Last Admin: 10/10/17 08:30 Dose: 15 ml Potassium Chloride 40 meq/Lidocaine HCl 25 mg/ Sodium Chloride 272.5 mls @ 68 mls/hr IV DAILY PRN PRN Reason: k level less than 3.2 Stop: 12/01/17 21:46 Last Admin: 10/08/17 08:39 Dose: 68 mls/hr Magnesium Sulfate (Magnesium Sulfate Premix) 2 gm in 50 mls @ 25 mls/hr IV DAILY PRN PRN Reason: Magnesium level less than 1.6 Stop: 12/01/17 21:46 Meropenem 500 mg/ Sodium (Chloride) 100 mls @ 100 mls/hr IV Q8HR [facility] Stop: 12/07/17 04:59 Last Infusion: 10/10/17 05:10 Dose: Infused Potassium Chloride 10 meq/ (Sodium Chloride) 1,005 mls @ 125 mls/hr IV .Q8H3M [facility] Stop: 12/08/17 15:55 Last Admin: 10/10/17 03:00 Dose: 125 mls/hr Dopamine HCl/Dextrose (Dopamine) 400 mg in 250 mls @ 8.437 mls/hr IV TITR PRN; Protocol; 4 MCG/KG/MIN PRN Reason: BP MAINTENANCE (PER PROTOCOL) Stop: 12/08/17 19:30 Lactobacillus Rhamnosus (Culturelle 15b) 1 each PO DAILY [facility] Stop: 12/05/17 08:59 Last Admin: 10/10/17 08:29 Dose: 1 each Levothyroxine Sodium (Synthroid) 0.05 mg GT QDAC [facility] Stop: 12/02/17 07:29 Last Admin: 10/10/17 08:29 Dose: 0.05 mg Lorazepam (Ativan) 2 mg IVP Q4HR PRN; Protocol PRN Reason: Anxiety Stop: 12/01/17 21:46 Last Admin: 10/10/17 03:35 Dose: 2 mg Magnesium Hydroxide (Milk Of Magnesia) 30 ml GT HS PRN PRN Reason: Constipation Stop: 12/01/17 21:40 Methylprednisolone Sodium Succinate (Solu-Medrol) 40 mg IVP Q6HR [facility] Stop: 12/05/17 17:59 Last Admin: 10/10/17 05:30 Dose: 40 mg Metoprolol Tartrate (Lopressor) 25 mg GT BID [facility] Stop: 12/02/17 08:59 Last Admin: 10/10/17 08:30 Dose: Not Given Miscellaneous (Probiotic Screen) 1 ea PRN PRN PRN Reason: PROTOCOL Stop: 12/04/17 09:59 Miscellaneous (Vte Chemical Prophylaxis Screen/ Admission) 1 ea PRN PRN PRN Reason: PROTOCOL Stop: 12/07/17 14:31 Morphine Sulfate (Morphine) 2 mg IVP Q4H PRN PRN Reason: moderate pain Stop: 12/01/17 21:46 Ondansetron HCl (Zofran) 4 mg IVP Q6H PRN PRN Reason: Nausea / Vomiting Stop: 12/01/17 21:46 Pantoprazole Sodium (Protonix) 40 mg IVP BID [facility] Stop: 12/05/17 16:59 Last Admin: 10/10/17 08:29 Dose: 40 mg Polyethylene Glycol (Miralax) 17 gm PO BID [facility] Stop: 12/04/17 10:14 Last Admin: 10/10/17 08:29 Dose: 17 gm Polyethylene Glycol/Electrolytes (Golytely) 4,000 ml PO X1 ONE Stop: 10/10/17 10:31 Last Admin: 10/10/17 10:59 Dose: 4,000 ml Potassium Chloride (Potassium Chloride Elixir) 40 meq PO DAILY PRN PRN Reason: k level less than 3.5 Stop: 12/03/17 07:20 Last Admin: 10/06/17 08:47 Dose: 40 meq Sodium Phosphate (Fleet Enema) 135 ml RC Q48H PRN PRN Reason: Constipation Stop: 12/01/17 21:40 Last Admin: 10/09/17 09:40 Dose: 135 ml Zolpidem Tartrate (Ambien) 10 mg PO HS PRN PRN Reason: Insomnia Stop: 12/01/17 21:46 General: no acute distress, well developed, well nourished HEENT: atraumatic, normocephalic, PERRLA, EOMI Neck: supple, no thyromegaly Cardiovascular: S1S2, regular Lungs: clear to auscultation bilaterally, clear to percussion Abdomen: soft, no tender, no distended Extremities: no cyanosis, no clubbing, no edema Neurological: awake, alert - Procedures Procedures: Procedures Procedure Code Date INSERT EMERGENCY AIRWAY 13228 10/02/17 INSERTION OF ENDOTRACHEAL AIRWAY INTO [place], VIA OPENING [id number] 10/02/17 RESPIRATORY VENTILATION, 24-96 CONSECUTIVE HOURS [id number] 10/02/17 VENT MGMT INPAT INIT DAY 10/02/17 VENT MGMT INPAT SUBQ 10/02/17 Infectious Disease Assmt/Plan - Assessment Assessment: 1. Leukocytosis, respiratory failure, sepsis. 2. Aspiration pneumonia versus healthcare facility associated pneumonia. 3. Dementia. 4. COPD and COPD exacerbation. 5. Hypertension. 6. Acute respiratory failure on ventilator. - Plan Plan: change meropenem to levquin iV, which can be changed to po if needed. Sepsis workup. Nutritional Asmnt/Malnutr-PDOC - Dietary Evaluation Malnutrition Findings (Please click <Entered> for more info): Nutritional Asmnt/Malnutrition Start: 10/05/17 17: 05 Text: Status: Complete Freq: Document 10/05/17 17:05 GRETA (Rec: 10/05/17 17:26 [id number]) Nutritional Asmnt/Malnutrition Patient General Information Nutritional Screening High Risk Diagnosis aspiration PNA Pertinent Medical Hx/Surgical Hx alzheimer demtnia, COPD, HTN, dysphagia Subjective Information Pt seen resting in bed at time of visit. Received TF Nutren 1.0 fiber 20ml/hr continuous this morning. Notified RN we do not have this formula in stock. changed to Fibersource HN at 20ml/hr continuous. Per notes, pt had fecal impaction, on enema and golytely yesterday, had 5 times of liquidy brown BM. Current Diet Order/ Nutrition Support Fibersource HN at 20ml/hr continuous, providing 576kcal, 26g protein Pertinent Medications D5-0.45ns, culturelle, synthroid, Magnium, piperacillin, miralx, kcl Pertinent Labs 10/05 Na 146, K 3.3, Cl 114, BUN 27, Cr 1.0, Ca 8.1 Nutritional Hx/Data Height 1.78 m Height (Calculated Centimeters) 177.8 Current Weight (lbs) 54.885 kg Weight (Calculated Kilograms) 54.9 Weight (Calculated Grams) 82221.7 [place] Body Weight 166 % [place] Body Weight 73 Body Mass Index (BMI) 17.3 Weight Status Overweight GI Symptoms Last BM 10/05 x 4 Difficult in: None Skin Integrity/Comment: intact Estimated Nutritional Goals BEE in Kcals: Using Current wt Calories/Kcals/Kg 27-32 Kcals Calculated 0736-7608 Protein: Using Current wt Protein g/k.1-1.4 Protein Calculated 61-72 Fluid: ml 1650-1925ml (1ml/kcal) Nutritional Problem 1. Problem Problem inadequate intake from enteral feeding Etiology TF running at low rate d/t fecal impaction Signs/Symptoms: current TF meeting 35% of nutritional needs Malnutrition Alert Protein-Calorie Malnutrition N/A Is there a minimum of two criteria No selected? Query Text:Check all the applicable criteria. A minimum of two criteria are recommended for diagnosis of either severe or non-severe malnutrition. Intervention/Recommendation Comments 1. Continue with current TF regimen at this time. When medically appropriate, increase to goal rate of 50ml/ hr, providing 1440kcal and 65g protein, meeting 100% of nutritional needs. 2. Monitor TF rate, tolerance, wt weekly, skin integrity and labs 3. F/U as nam risk in 2-3 days, 10/07-10/08 Expected Outcomes/Goals Expected Outcomes/Goals 1. Pt to meet at least 75% of nutritional needs via nutrition support with tolerance 2. Wt stability, GI function to improve, skin to remain intact, labs to approach WNL.
[2017-10-10 11:55] LABS: ALLEN TEST Positive; pH 7.38 (7.35-7.45)
--- NOTE | 2017-10-10 13:48 | Cardiology ---
10/08/2017 ECHOCARDIOGRAM REPORT A patient of Dr. Urbina. M-MODE ECHOCARDIOGRAM: Mitral valve, anterior leaflet of mitral valve shows normal excursion, EF velocity. Posterior leaflet of mitral valve shows normal excursion. Left ventricular posterior wall shows increased thickness, normal excursion. Interventricular septum shows increased thickness, normal excursion. Hypertrophy of the left ventricle, ejection fraction 55%. Left atrium normal. Aortic root shows normal dimension, normal excursion of aortic leaflets. CONCLUSION: Hypertrophy of the left ventricle, ejection fraction 55%. 2D ECHO: Long axis view showed normal size left ventricle with hypertrophy of the left ventricle. Left atrium normal. Aortic root shows normal dimension, normal excursion of aortic leaflets. Short axis view of mitral valve normal. Short axis view of aortic valve normal. Apical four chamber view showed normal size left ventricle with hypertrophy of the left ventricle. Left atrium normal. Right ventricular cavity, right atrium normal, no pericardial effusion. CONCLUSION: Hypertrophy of the left ventricle, ejection fraction 55%. Doppler study shows prominent A wave consistent with poor compliance of left ventricle, trace mitral regurgitation, trace tricuspid regurgitation. [facility]# [id number]
[2017-10-10] MEDS: Levofloxacin 250mg/50mL 250 MG/50 ML BAG IV SCH (15:20)
[2017-10-11] MEDS: methylPREDNISolone SS 40 mg Vial IVP SCH ×4 (00:05→17:13)
[2017-10-11] MEDS: Albuterol/Ipratropium Neb 3 ML AERS HHN SCH ×6 (03:26→23:03)
[2017-10-11 07:09] LABS: FERRITIN 87 ng/mL (30-400); IRON LC 26 ug/dL (38-169); TIBC (LC) 218 ug/dL (250-450); UIBC 192 ug/dL (111-343)
--- NOTE | 2017-10-11 08:35 | GI Progress Note ---
Subjective - Review of Systems Service Date: 10/11/17 Subjective: Copious BMs overnight with prep Objective - Results Result Diagrams: 10/10/17 04:10 10/10/17 04:10 Recent Labs: Laboratory Last Values WBC 8.9 Th/cmm (4.8-10.8) D 10/10/17 04:10 RBC 2.42 Mil/cmm (3.80-5.80) L 10/10/17 04:10 Hgb 7.5 gm/dL (12-16) L* 10/10/17 04:10 Hct 22.8 % (41.0-60) L 10/10/17 04:10 MCV 94.4 fl (80-99) 10/10/17 04:10 MCH 30.9 pg (27.0-31.0) 10/10/17 04:10 MCHC Differential 32.7 pg (28.0-36.0) 10/10/17 04:10 RDW 17.9 % (11.5-20.0) 10/10/17 04:10 Plt Count 139 Th/cmm (150-400) L 10/10/17 04:10 MPV 11.6 fl 10/10/17 04:10 Neutrophils % 65.4 % (40.0-80.0) 10/06/17 05:58 Band Neutrophils % 4 % (0-10) 10/10/17 04:10 Lymphocytes % 14.6 % (20.0-50.0) L 10/06/17 05:58 Monocytes % 7.1 % (2.0-10.0) 10/06/17 05:58 Eosinophils % 12.7 % (0.0-5.0) H 10/06/17 05:58 Basophils % 0.2 % (0.0-2.0) 10/06/17 05:58 Neutrophils (Manual) 80 % (40-80) 10/10/17 04:10 Lymphocytes 8 % (20-50) L 10/10/17 04:10 Monocytes 6 % (2-10) 10/10/17 04:10 Eosinophils 2 % (0-5) 10/10/17 04:10 Hypochromia 1+ 10/10/17 04:10 Platelet Estimate ADEQUATE (NORMAL) 10/10/17 04:10 Polychromasia 1+ 10/10/17 04:10 Poikilocytosis 1+ 10/08/17 04:15 Macrocytosis 1+ 10/08/17 04:15 PT 10.7 SECONDS (9.5-11.5) 10/02/17 19:43 INR 1.03 (0.5-1.4) 10/02/17 19:43 PTT (Actin FS) 27.6 SECONDS (26.0-38.0) 10/02/17 19:43 Specimen Source Arterial 10/10/17 11:43 Sample Site Left Radial 10/10/17 11:43 pH 7.38 (7.35-7.45) 10/10/17 11:43 pCO2 34.0 mmHg (35.0-45.0) L 10/10/17 11:43 pO2 109.0 mmHg (80.0-100.0) H 10/10/17 11:43 HCO3 21.6 mEq/L (20.0-26.0) 10/10/17 11:43 Base Excess -4.3 mEq/L (-3.0-3.0) L 10/10/17 11:43 O2 Saturation 98.0 % (92.0-100.0) 10/10/17 11:43 Ramiro Test Positive 10/10/17 11:43 Vent Rate NA 10/10/17 11:43 Inspired O2 40 10/10/17 11:43 Tidal Volume NA 10/10/17 11:43 PEEP NA 10/10/17 11:43 Pressure (ins/psv/peep) NA 10/10/17 11:43 Critical Value LZHANG 10/10/17 11:43 Sodium 144 mEq/L (136-145) 10/10/17 04:10 Potassium 3.5 mEq/L (3.5-5.1) 10/10/17 04:10 Chloride 118 mEq/L (98-107) H 10/10/17 04:10 Carbon Dioxide 18.9 mEq/L (21.0-31.0) L 10/10/17 04:10 Anion Gap 10.6 (7.0-16.0) 10/10/17 04:10 BUN 23 mg/dL (7-25) 10/10/17 04:10 Creatinine 0.8 mg/dL (0.7-1.3) 10/10/17 04:10 Est GFR ( Amer) TNP 10/10/17 04:10 Est GFR (Non-Af Amer) TNP 10/10/17 04:10 BUN/Creatinine Ratio 28.8 10/10/17 04:10 Glucose 130 mg/dL (70-105) H 10/10/17 04:10 Whole Bld Lactic Acid 1.94 mmol/L (0.60-1.99) 10/07/17 16:26 Calcium 7.8 mg/dL (8.6-10.3) L 10/10/17 04:10 Iron 26 ug/dL (38-169) L 10/09/17 05:50 TIBC 218 ug/dL (250-450) L 10/09/17 05:50 Iron Saturation 12 % (15-55) L 10/09/17 05:50 Unsaturated IBC 192 ug/dL (111-343) 10/09/17 05:50 Ferritin 87 ng/mL (30-400) 10/09/17 05:50 Urine Source CLEAN C 10/04/17 10:00 Urine Color YELLOW 10/04/17 10:00 Urine Clarity HAZY (CLEAR) 10/04/17 10:00 Urine pH 6.5 (4.6 - 8.0) 10/04/17 10:00 Ur Specific [place] 1.020 (1.005-1.030) 10/04/17 10:00 Urine Protein TRACE mg/dL (NEGATIVE) 10/04/17 10:00 Urine Glucose (UA) NEGATIVE mg/dL (NEGATIVE) 10/04/17 10:00 Urine Ketones NEGATIVE mg/dL (NEGATIVE) 10/04/17 10:00 Urine Blood NEGATIVE (NEGATIVE) 10/04/17 10:00 Urine Nitrate NEGATIVE (NEGATIVE) 10/04/17 10:00 Urine Bilirubin NEGATIVE (NEGATIVE) 10/04/17 10:00 Urine Urobilinogen 4.0 E.U./dL (0.2 - 1.0) H 10/04/17 10:00 Ur Leukocyte Esterase NEGATIVE (NEGATIVE) 10/04/17 10:00 Urine RBC 0-2 /hpf (0-5) H 10/04/17 10:00 Urine WBC 2-5 /hpf (0-5) H 10/04/17 10:00 Ur Epithelial Cells OCCASIONAL /lpf (FEW) 10/04/17 10:00 Urine Bacteria FEW /hpf (NONE SEEN) 10/04/17 10:00 Stool Occult Blood POSITIVE (NEGATIVE) H 10/08/17 19:00 Influenza A (Rapid) NEG FOR INF A 10/04/17 02:53 Influenza B (Rapid) NEG FOR INF B 10/04/17 02:53 - Physical Exam Vitals and I&O: Vital Signs Temp 97.4 F 10/11/17 04:00 Pulse 74 10/11/17 07:02 Resp 18 10/11/17 07:02 BP 123/50 10/11/17 07:00 Pulse Ox 99 10/11/17 07:02 Intake & Output 10/10/17 10/11/17 10/11/17 18:59 06:59 18:59 Intake Total 1055 2082.558 1.125 Output Total 1450 900 Balance -395 1182.558 1.125 Weight (lbs) 61.235 kg 60.328 kg Intake: Intake, IV Amount 1055 2082.558 1.125 DOPamine 400 mg In 250 ml 72.558 1.125 @ 4 MCG/KG/MIN 8.437 mls /hr IV TITR PRN Rx#: [id number] Levofloxacin 250mg/50mL 50 250 mg In 50 ml @ 50 mls/ hr IV Q24H [facility] Rx#: [id number] Potassium Chloride 10 meq 1005 2010 In Sodium Chloride 0.9% 1,000 ml @ 125 mls/hr IV .Q8H3M [facility] Rx#:[id number] Oral 0 Output: Urine 700 600 Stool 750 300 Other: Stool Characteristics Liquid Liquid Brown Brown Active Medications: Current Medications Acetaminophen (Tylenol) 650 mg GT Q6HR PRN PRN Reason: Pain or Fever >101 Stop: 12/01/17 21:40 Last Admin: 10/06/17 16:05 Dose: 650 mg Albuterol/Ipratropium (Duoneb Neb) 3 ml HHN Q4HRT PRN PRN Reason: Wheezing Stop: 12/05/17 15:10 Albuterol/Ipratropium (Duoneb Neb) 3 ml HHN Q4HRT [facility] Stop: 12/05/17 15:14 Last Admin: 10/11/17 07:01 Dose: 3 ml Aspirin (Aspirin Chewable) 81 mg GT DAILY [facility] Stop: 12/02/17 08:59 Last Admin: 10/10/17 08:29 Dose: 81 mg Bisacodyl (Dulcolax 10 Mg Supp) 10 mg RC DAILY PRN PRN Reason: Constipation Stop: 12/01/17 21:40 Potassium Chloride 40 meq/Lidocaine HCl 25 mg/ Sodium Chloride 272.5 mls @ 68 mls/hr IV DAILY PRN PRN Reason: k level less than 3.2 Stop: 12/01/17 21:46 Last Admin: 10/08/17 08:39 Dose: 68 mls/hr Magnesium Sulfate (Magnesium Sulfate Premix) 2 gm in 50 mls @ 25 mls/hr IV DAILY PRN PRN Reason: Magnesium level less than 1.6 Stop: 12/01/17 21:46 Potassium Chloride 10 meq/ (Sodium Chloride) 1,005 mls @ 125 mls/hr IV .Q8H3M [facility] Stop: 12/08/17 15:55 Last Admin: 10/11/17 06:30 Dose: 125 mls/hr Dopamine HCl/Dextrose (Dopamine) 400 mg in 250 mls @ 8.437 mls/hr IV TITR PRN; Protocol; 4 MCG/KG/MIN PRN Reason: BP MAINTENANCE (PER PROTOCOL) Stop: 12/08/17 19:30 Last Titration: 10/11/17 07:05 Dose: 0 mcg/kg/min, 0 mls/hr Levofloxacin (Levaquin Pb) 250 mg in 50 mls @ 50 mls/hr IV Q24H [facility] Stop: 12/09/17 13:59 Last Infusion: 10/10/17 18:37 Dose: Infused Ferric Sodium Gluconate Complex 125 mg/ Sodium Chloride 110 mls @ 100 mls/hr IV Q24HR [facility] Stop: 10/18/17 08:44 Lactobacillus Rhamnosus (Culturelle 15b) 1 each PO DAILY [facility] Stop: 12/05/17 08:59 Last Admin: 10/10/17 08:29 Dose: 1 each Levothyroxine Sodium (Synthroid) 0.05 mg GT QDAC [facility] Stop: 12/02/17 07:29 Last Admin: 10/10/17 08:29 Dose: 0.05 mg Lorazepam (Ativan) 2 mg IVP Q4HR PRN; Protocol PRN Reason: Anxiety Stop: 12/01/17 21:46 Last Admin: 10/10/17 21:11 Dose: 2 mg Magnesium Hydroxide (Milk Of Magnesia) 30 ml GT HS PRN PRN Reason: Constipation Stop: 12/01/17 21:40 Methylprednisolone Sodium Succinate (Solu-Medrol) 40 mg IVP Q6HR [facility] Stop: 12/05/17 17:59 Last Admin: 10/11/17 05:41 Dose: 40 mg Metoprolol Tartrate (Lopressor) 25 mg GT BID [facility] Stop: 12/02/17 08:59 Last Admin: 10/10/17 18:36 Dose: Not Given Miscellaneous (Probiotic Screen) 1 ea PRN PRN PRN Reason: PROTOCOL Stop: 12/04/17 09:59 Miscellaneous (Vte Chemical Prophylaxis Screen/ Admission) 1 ea PRN PRN PRN Reason: PROTOCOL Stop: 12/07/17 14:31 Morphine Sulfate (Morphine) 2 mg IVP Q4H PRN PRN Reason: moderate pain Stop: 12/01/17 21:46 Last Admin: 10/10/17 23:20 Dose: 2 mg Ondansetron HCl (Zofran) 4 mg IVP Q6H PRN PRN Reason: Nausea / Vomiting Stop: 12/01/17 21:46 Pantoprazole Sodium (Protonix) 40 mg IVP BID [facility] Stop: 12/05/17 16:59 Last Admin: 10/10/17 17:27 Dose: 40 mg Polyethylene Glycol (Miralax) 17 gm PO BID [facility] Stop: 12/04/17 10:14 Last Admin: 10/10/17 17:27 Dose: 17 gm Potassium Chloride (Potassium Chloride Elixir) 40 meq PO DAILY PRN PRN Reason: k level less than 3.5 Stop: 12/03/17 07:20 Last Admin: 10/06/17 08:47 Dose: 40 meq Sodium Phosphate (Fleet Enema) 135 ml RC Q48H PRN PRN Reason: Constipation Stop: 12/01/17 21:40 Last Admin: 10/09/17 09:40 Dose: 135 ml Zolpidem Tartrate (Ambien) 10 mg PO HS PRN PRN Reason: Insomnia Stop: 12/01/17 21:46 General: Alert, Mild distress HEENT: Atraumatic, PERRLA, Other (intubated, ET tube in plce) Neck: Supple, no JVD, no Thyromegaly Cardiovascular: Regular rate Lungs: Other (On vent. Decreased BS BL.) Abdomen: Soft, Other (mild abd distension. G tube present.) Extremities: no Clubbing, no Edema Neurological: Other (Pt intubated. No awake or alert. ) Skin: no Rash - Procedures Procedures: Procedures Procedure Code Date INSERT EMERGENCY AIRWAY 77958 10/02/17 INSERTION OF ENDOTRACHEAL AIRWAY INTO TRACHEA, VIA OPENING [id number] 10/02/17 RESPIRATORY VENTILATION, 24-96 CONSECUTIVE HOURS [id number] 10/02/17 VENT MGMT INPAT INIT DAY 10/02/17 VENT MGMT INPAT SUBQ DAY 10/02/17 Assessment/Plan - Assessment Assessment: # Fecal impaction # Abd distension # Possible pneumonia # Anemia CT and KUB show large fecal impaction. Now s/p several enemas and golytely bowel prep and is having liquid stool. KUB on 10/04 shows some improvement although still large amount of stool. KUB 10/09 again shows persistant impaction No overt GI bleeding, although pt has had some blood loss from his trach. OB stool occult is positive, but this is expected given he has a large fecal impaction. # Respiratory failure, possible pneumonia Transferred to ICU 10/06 for increased respiratory distress, and was intubated for a time Plan: - would not act on stool OB positive without evidence of overt GI bleeding. Fecal impaction will cause a stool occult positive - repeat KUB today after 4L bowel prep yesterday - management of pneumonia as per primary
--- NOTE | 2017-10-11 08:49 | General Progress Note ---
Subjective - Review of Systems Service Date: 10/11/17 Subjective: Pt seen and eval. He's intubated. On SIMV mode. Has sig fecal impaction. However, after the bowel prep he had sig amount of BM last night. I discussed care with Dr. Santos as well. On dopamine drip at 2 mcg now. No fevers or chills. ID, Gi, and Pulm following. WBC trending down. Discussed care with RN in detail. On IV Vanco. Objective - Results Result Diagrams: 10/10/17 04:10 10/10/17 04:10 Recent Labs: Laboratory Last Values WBC 8.9 Th/cmm (4.8-10.8) D 10/10/17 04:10 RBC 2.42 Mil/cmm (3.80-5.80) L 10/10/17 04:10 Hgb 7.5 gm/dL (12-16) L* 10/10/17 04:10 Hct 22.8 % (41.0-60) L 10/10/17 04:10 MCV 94.4 fl (80-99) 10/10/17 04:10 MCH 30.9 pg (27.0-31.0) 10/10/17 04:10 MCHC Differential 32.7 pg (28.0-36.0) 10/10/17 04:10 RDW 17.9 % (11.5-20.0) 10/10/17 04:10 Plt Count 139 Th/cmm (150-400) L 10/10/17 04:10 MPV 11.6 fl 10/10/17 04:10 Neutrophils % 65.4 % (40.0-80.0) 10/06/17 05:58 Band Neutrophils % 4 % (0-10) 10/10/17 04:10 Lymphocytes % 14.6 % (20.0-50.0) L 10/06/17 05:58 Monocytes % 7.1 % (2.0-10.0) 10/06/17 05:58 Eosinophils % 12.7 % (0.0-5.0) H 10/06/17 05:58 Basophils % 0.2 % (0.0-2.0) 10/06/17 05:58 Neutrophils (Manual) 80 % (40-80) 10/10/17 04:10 Lymphocytes 8 % (20-50) L 10/10/17 04:10 Monocytes 6 % (2-10) 10/10/17 04:10 Eosinophils 2 % (0-5) 10/10/17 04:10 Hypochromia 1+ 10/10/17 04:10 Platelet Estimate ADEQUATE (NORMAL) 10/10/17 04:10 Polychromasia 1+ 10/10/17 04:10 Poikilocytosis 1+ 10/08/17 04:15 Macrocytosis 1+ 10/08/17 04:15 PT 10.7 SECONDS (9.5-11.5) 10/02/17 19:43 INR 1.03 (0.5-1.4) 10/02/17 19:43 PTT (Actin FS) 27.6 SECONDS (26.0-38.0) 10/02/17 19:43 Specimen Source Arterial 10/10/17 11:43 Sample Site Left Radial 10/10/17 11:43 pH 7.38 (7.35-7.45) 10/10/17 11:43 pCO2 34.0 mmHg (35.0-45.0) L 10/10/17 11:43 pO2 109.0 mmHg (80.0-100.0) H 10/10/17 11:43 HCO3 21.6 mEq/L (20.0-26.0) 10/10/17 11:43 Base Excess -4.3 mEq/L (-3.0-3.0) L 10/10/17 11:43 O2 Saturation 98.0 % (92.0-100.0) 10/10/17 11:43 Ramiro Test Positive 10/10/17 11:43 Vent Rate NA 10/10/17 11:43 Inspired O2 40 10/10/17 11:43 Tidal Volume NA 10/10/17 11:43 PEEP NA 10/10/17 11:43 Pressure (ins/psv/peep) NA 10/10/17 11:43 Critical Value LZHANG 10/10/17 11:43 Sodium 144 mEq/L (136-145) 10/10/17 04:10 Potassium 3.5 mEq/L (3.5-5.1) 10/10/17 04:10 Chloride 118 mEq/L (98-107) H 10/10/17 04:10 Carbon Dioxide 18.9 mEq/L (21.0-31.0) L 10/10/17 04:10 Anion Gap 10.6 (7.0-16.0) 10/10/17 04:10 BUN 23 mg/dL (7-25) 10/10/17 04:10 Creatinine 0.8 mg/dL (0.7-1.3) 10/10/17 04:10 Est GFR ( Amer) TNP 10/10/17 04:10 Est GFR (Non-Af Amer) TNP 10/10/17 04:10 BUN/Creatinine Ratio 28.8 10/10/17 04:10 Glucose 130 mg/dL (70-105) H 10/10/17 04:10 Whole Bld Lactic Acid 1.94 mmol/L (0.60-1.99) 10/07/17 16:26 Calcium 7.8 mg/dL (8.6-10.3) L 10/10/17 04:10 Iron 26 ug/dL (38-169) L 10/09/17 05:50 TIBC 218 ug/dL (250-450) L 10/09/17 05:50 Iron Saturation 12 % (15-55) L 10/09/17 05:50 Unsaturated IBC 192 ug/dL (111-343) 10/09/17 05:50 Ferritin 87 ng/mL (30-400) 10/09/17 05:50 Urine Source CLEAN C 10/04/17 10:00 Urine Color YELLOW 10/04/17 10:00 Urine Clarity HAZY (CLEAR) 10/04/17 10:00 Urine pH 6.5 (4.6 - 8.0) 10/04/17 10:00 Ur Specific Stella 1.020 (1.005-1.030) 10/04/17 10:00 Urine Protein TRACE mg/dL (NEGATIVE) 10/04/17 10:00 Urine Glucose (UA) NEGATIVE mg/dL (NEGATIVE) 10/04/17 10:00 Urine Ketones NEGATIVE mg/dL (NEGATIVE) 10/04/17 10:00 Urine Blood NEGATIVE (NEGATIVE) 10/04/17 10:00 Urine Nitrate NEGATIVE (NEGATIVE) 10/04/17 10:00 Urine Bilirubin NEGATIVE (NEGATIVE) 10/04/17 10:00 Urine Urobilinogen 4.0 E.U./dL (0.2 - 1.0) H 10/04/17 10:00 Ur Leukocyte Esterase NEGATIVE (NEGATIVE) 10/04/17 10:00 Urine RBC 0-2 /hpf (0-5) H 10/04/17 10:00 Urine WBC 2-5 /hpf (0-5) H 10/04/17 10:00 Ur Epithelial Cells OCCASIONAL /lpf (FEW) 10/04/17 10:00 Urine Bacteria FEW /hpf (NONE SEEN) 10/04/17 10:00 Stool Occult Blood POSITIVE (NEGATIVE) H 10/08/17 19:00 Influenza A (Rapid) NEG FOR INF A 10/04/17 02:53 Influenza B (Rapid) NEG FOR INF B 10/04/17 02:53 - Physical Exam Vitals and I&O: Vital Signs Temp 97.4 F 10/11/17 04:00 Pulse 74 10/11/17 07:02 Resp 18 10/11/17 07:02 BP 123/50 10/11/17 07:00 Pulse Ox 99 10/11/17 07:02 Intake & Output 10/10/17 10/11/17 10/11/17 18:59 06:59 18:59 Intake Total 1055 2082.558 1.125 Output Total 1450 900 Balance -395 1182.558 1.125 Weight (lbs) 61.235 kg 60.328 kg Intake: Intake, IV Amount 1055 2082.558 1.125 DOPamine 400 mg In 250 ml 72.558 1.125 @ 4 MCG/KG/MIN 8.437 mls /hr IV TITR PRN Rx#: [id number] Levofloxacin 250mg/50mL 50 250 mg In 50 ml @ 50 mls/ hr IV Q24H [facility] Rx#: [id number] Potassium Chloride 10 meq 1005 2010 In Sodium Chloride 0.9% 1,000 ml @ 125 mls/hr IV .Q8H3M [facility] Rx#:[id number] Oral 0 Output: Urine 700 600 Stool 750 300 Other: Stool Characteristics Liquid Liquid Brown Brown Active Medications: Current Medications Acetaminophen (Tylenol) 650 mg GT Q6HR PRN PRN Reason: Pain or Fever >101 Stop: 12/01/17 21:40 Last Admin: 10/06/17 16:05 Dose: 650 mg Albuterol/Ipratropium (Duoneb Neb) 3 ml HHN Q4HRT PRN PRN Reason: Wheezing Stop: 12/05/17 15:10 Albuterol/Ipratropium (Duoneb Neb) 3 ml HHN Q4HRT [facility] Stop: 12/05/17 15:14 Last Admin: 10/11/17 07:01 Dose: 3 ml Aspirin (Aspirin Chewable) 81 mg GT DAILY [facility] Stop: 12/02/17 08:59 Last Admin: 10/10/17 08:29 Dose: 81 mg Bisacodyl (Dulcolax 10 Mg Supp) 10 mg RC DAILY PRN PRN Reason: Constipation Stop: 12/01/17 21:40 Potassium Chloride 40 meq/Lidocaine HCl 25 mg/ Sodium Chloride 272.5 mls @ 68 mls/hr IV DAILY PRN PRN Reason: k level less than 3.2 Stop: 12/01/17 21:46 Last Admin: 10/08/17 08:39 Dose: 68 mls/hr Magnesium Sulfate (Magnesium Sulfate Premix) 2 gm in 50 mls @ 25 mls/hr IV DAILY PRN PRN Reason: Magnesium level less than 1.6 Stop: 12/01/17 21:46 Potassium Chloride 10 meq/ (Sodium Chloride) 1,005 mls @ 125 mls/hr IV .Q8H3M [facility] Stop: 12/08/17 15:55 Last Admin: 10/11/17 06:30 Dose: 125 mls/hr Dopamine HCl/Dextrose (Dopamine) 400 mg in 250 mls @ 8.437 mls/hr IV TITR PRN; Protocol; 4 MCG/KG/MIN PRN Reason: BP MAINTENANCE (PER PROTOCOL) Stop: 12/08/17 19:30 Last Titration: 10/11/17 07:05 Dose: 0 mcg/kg/min, 0 mls/hr Levofloxacin (Levaquin Pb) 250 mg in 50 mls @ 50 mls/hr IV Q24H [facility] Stop: 12/09/17 13:59 Last Infusion: 10/10/17 18:37 Dose: Infused Ferric Sodium Gluconate Complex 125 mg/ Sodium Chloride 110 mls @ 100 mls/hr IV Q24HR [facility] Stop: 10/18/17 08:44 Lactobacillus Rhamnosus (Culturelle 15b) 1 each PO DAILY [facility] Stop: 12/05/17 08:59 Last Admin: 10/10/17 08:29 Dose: 1 each Levothyroxine Sodium (Synthroid) 0.05 mg GT QDAC [facility] Stop: 12/02/17 07:29 Last Admin: 10/10/17 08:29 Dose: 0.05 mg Lorazepam (Ativan) 2 mg IVP Q4HR PRN; Protocol PRN Reason: Anxiety Stop: 12/01/17 21:46 Last Admin: 10/10/17 21:11 Dose: 2 mg Magnesium Hydroxide (Milk Of Magnesia) 30 ml GT HS PRN PRN Reason: Constipation Stop: 12/01/17 21:40 Methylprednisolone Sodium Succinate (Solu-Medrol) 40 mg IVP Q6HR [facility] Stop: 12/05/17 17:59 Last Admin: 10/11/17 05:41 Dose: 40 mg Metoprolol Tartrate (Lopressor) 25 mg GT BID [facility] Stop: 12/02/17 08:59 Last Admin: 10/10/17 18:36 Dose: Not Given Miscellaneous (Probiotic Screen) 1 ea PRN PRN PRN Reason: PROTOCOL Stop: 12/04/17 09:59 Miscellaneous (Vte Chemical Prophylaxis Screen/ Admission) 1 ea PRN PRN PRN Reason: PROTOCOL Stop: 12/07/17 14:31 Morphine Sulfate (Morphine) 2 mg IVP Q4H PRN PRN Reason: moderate pain Stop: 12/01/17 21:46 Last Admin: 10/10/17 23:20 Dose: 2 mg Ondansetron HCl (Zofran) 4 mg IVP Q6H PRN PRN Reason: Nausea / Vomiting Stop: 12/01/17 21:46 Pantoprazole Sodium (Protonix) 40 mg IVP BID [facility] Stop: 12/05/17 16:59 Last Admin: 10/10/17 17:27 Dose: 40 mg Polyethylene Glycol (Miralax) 17 gm PO BID [facility] Stop: 12/04/17 10:14 Last Admin: 10/10/17 17:27 Dose: 17 gm Potassium Chloride (Potassium Chloride Elixir) 40 meq PO DAILY PRN PRN Reason: k level less than 3.5 Stop: 12/03/17 07:20 Last Admin: 10/06/17 08:47 Dose: 40 meq Sodium Phosphate (Fleet Enema) 135 ml RC Q48H PRN PRN Reason: Constipation Stop: 12/01/17 21:40 Last Admin: 10/09/17 09:40 Dose: 135 ml Zolpidem Tartrate (Ambien) 10 mg PO HS PRN PRN Reason: Insomnia Stop: 12/01/17 21:46 General: Mild distress HEENT: Atraumatic, PERRLA, Other (intubated, ET tube in plce) Neck: Supple, no JVD, no Thyromegaly Cardiovascular: Regular rate Lungs: Other (On vent. Decreased BS BL.) Abdomen: Other (mild abd distension. G tube present.), no Tender Extremities: no Clubbing, no Edema Neurological: Other (Pt intubated. No awake or alert. ) Skin: no Rash - Procedures Procedures: Procedures Procedure Code Date INSERT EMERGENCY AIRWAY 96153 10/02/17 INSERTION OF ENDOTRACHEAL AIRWAY INTO TRACHEA, VIA OPENING [id number] 10/02/17 RESPIRATORY VENTILATION, 24-96 CONSECUTIVE HOURS [id number] 10/02/17 VENT MGMT INPAT INIT DAY 10/02/17 VENT MGMT INPAT SUBQ DAY 10/02/17 Assessment/Plan - Assessment Assessment: Acute Resp fail Sepsis Hypovolemic Hypernatremia HTN COPD Dysphagia Fecal impaction ME TITUS with Exac Poss asp pna - Plan Plan: Pt is intubated. Awakens to physical stimulus. No on any sedation. Vent settings reviewed: SIMV mode. PEEP 5. PS 10. FiO2 35%. TV 500 GI saw pt and ordered water enema and Golytely. He had a bm's after bowel prep. - On IV Vanco. ID, Pulm, and Gi following. FU on cultures. WBC trending down. Gt is clamped. Afebrile. On Dopamine at 2 mcg now. Spoke with on the phone. She's wants to put pt on comfort care/hospice if he doesn't improve. She'll let me know by tomorrow re when she wants him to be on comfort care. Discussed care with Dr. Santos as well. Nutritional Asmnt/Malnutr-PDOC - Dietary Evaluation Malnutrition Findings (Please click <Entered> for more info): Nutritional Asmnt/Malnutrition Start: 10/05/17 17: 05 Text: Status: Complete Freq: Document 10/05/17 17:05 LCHENG (Rec: 10/05/17 17:26 [facility] [id number]) Nutritional Asmnt/Malnutrition Patient General Information Nutritional Screening High Risk Diagnosis aspiration PNA Pertinent Medical Hx/Surgical Hx alzheimer demtnia, COPD, HTN, dysphagia Subjective Information Pt seen resting in bed at time of visit. Received TF Nutren 1.0 fiber 20ml/hr continuous this morning. Notified RN we do not have this formula in stock. changed to Fibersource HN at 20ml/hr continuous. Per notes, pt had fecal impaction, on enema and golytely yesterday, had 5 times of liquidy brown BM. Current Diet Order/ Nutrition Support Fibersource HN at 20ml/hr continuous, providing 576kcal, 26g protein Pertinent Medications D5-0.45ns, culturelle, synthroid, Magnium, piperacillin, miralx, kcl Pertinent Labs 10/05 Na 146, K 3.3, Cl 114, BUN 27, Cr 1.0, Ca 8.1 Nutritional Hx/Data Height 1.78 m Height (Calculated Centimeters) 177.8 Current Weight (lbs) 54.885 kg Weight (Calculated Kilograms) 54.9 Weight (Calculated Grams) 55056.7 [place] Body Weight 166 % [place] Body Weight 73 Body Mass Index (BMI) 17.3 Weight Status Overweight GI Symptoms Last BM 10/05 x 4 Difficult in: None Skin Integrity/Comment: intact Estimated Nutritional Goals BEE in Kcals: Using Current wt Calories/Kcals/Kg 27-32 Kcals Calculated 2416-3821 Protein: Using Current wt Protein g/k.1-1.4 Protein Calculated 61-72 Fluid: ml 1650-1925ml (1ml/kcal) Nutritional Problem 1. Problem Problem inadequate intake from enteral feeding Etiology TF running at low rate d/t fecal impaction Signs/Symptoms: current TF meeting 35% of nutritional needs Malnutrition Alert Protein-Calorie Malnutrition N/A Is there a minimum of two criteria No selected? Query Text:Check all the applicable criteria. A minimum of two criteria are recommended for diagnosis of either severe or non-severe malnutrition. Intervention/Recommendation Comments 1. Continue with current TF regimen at this time. When medically appropriate, increase to goal rate of 50ml/ hr, providing 1440kcal and 65g protein, meeting 100% of nutritional needs. 2. Monitor TF rate, tolerance, wt weekly, skin integrity and labs 3. F/U as nam risk in 2-3 days, 10/07-10/08 Expected Outcomes/Goals Expected Outcomes/Goals 1. Pt to meet at least 75% of nutritional needs via nutrition support with tolerance 2. Wt stability, GI function to improve, skin to remain intact, labs to approach WNL.
[2017-10-11 09:00] LABS: LYMPHOCYTE ABSOLUTE 0.4 Th/cmm (1.5-3.0); MEAN CELL VOLUME 93.5 fl (80-99); MEAN CORPUSCULAR HEMOGLOBIN 31.9 pg (27.0-31.0); MEAN CORPUSCULAR HGB CONC 34.1 pg (28.0-36.0); MEAN PLATELET VOLUME 10.8 fl; MONOCYTE ABSOLUTE 0.3 Th/cmm (0.3-1.0); NEUTROPHILE ABSOLUTE 9.2 Th/cmm (1.8-8.0); PLATELET COUNT 165 Th/cmm (150-400); RED BLOOD COUNT 2.34 Mil/cmm (3.80-5.80); RED CELL DISTRIBUTION WIDTH 17.6 % (11.5-20.0); WHITE BLOOD COUNT 9.9 Th/cmm (4.8-10.8)
[2017-10-11 09:04] LABS: HEMOGLOBIN 7.5 gm/dL (12-16)
[2017-10-11 09:05] LABS: HEMATOCRIT 21.9 % (41.0-60)
[2017-10-11] MEDS: POLYETHYLENE GLYCOL 3350 17 GM PACK PO SCH ×2 (09:05→16:57)
[2017-10-11 09:11] LABS: INR 1.06 (0.5-1.4)
[2017-10-11 09:12] LABS: ANION GAP 12.2 (7.0-16.0); BUN - UREA NITROGEN 17 mg/dL (7-25); CALCIUM SERUM 7.8 mg/dL (8.6-10.3); CARBON DIOXIDE 19.3 mEq/L (21.0-31.0); CHLORIDE 120 mEq/L (98-107); CREATININE - SERUM 0.8 mg/dL (0.7-1.3); GLUCOSE 98 mg/dL (70-105); POTASSIUM SERUM 3.5 mEq/L (3.5-5.1); SODIUM SERUM 148 mEq/L (136-145)
[2017-10-11] MEDS: Lactobacillus Rhamnosus GG 15 Billion CFU CAP.SPRINK PO SCH (09:14)
[2017-10-11] MEDS: Aspirin 81mg Chewable Tab GT SCH (09:14)
[2017-10-11] MEDS: Levothyroxine 0.05 Mg Tab GT SCH (09:16)
--- NOTE | 2017-10-11 10:04 | Diagnostic Imaging Report ---
KUB single view HISTORY: Abdominal pain. COMPARISON: KUB on 10/09/2017 FINDINGS: There is severe distal impaction which has slightly decreased since prior exam. Generalized gas-filled loops of bowel are noted proximally. A percutaneous gastric feeding tube is noted. IMPRESSION: Persistent severe distal fecal impaction which is slightly improved since prior exam. Generalized gaseous filled loops of bowel are noted proximally.
[2017-10-11] MEDS: Sodium Ferric Gluconate 125 MG in Sodium Chloride 0.9% 100 ML IV SCH (11:30)
--- NOTE | 2017-10-11 13:26 | Diagnostic Imaging Report ---
CHEST X-RAY: AP view INDICATION: PICC line placement COMPARISON: 10/10/2017 FINDINGS: The prior ET tube is been removed. Right PICC line is in place with tip in SVC. Congestive changes seen with left basal infiltrates. There is elevation of the right hemidiaphragm. Borderline prominent heart is noted. IMPRESSION: New right PICC line with tip in SVC Congestive changes and left basal infiltrates.
[2017-10-11] MEDS: Levofloxacin 250mg/50mL 250 MG/50 ML BAG IV SCH (13:48)
--- NOTE | 2017-10-11 14:06 | Infectious Disease Prog Note ---
Infectious Disease Subjective - Review of Systems Service Date: 10/11/17 Subjective: There is no fever. intubated orally, on vent. doing better. Infectious Disease Objective - Results Result Diagrams: 10/11/17 08:45 10/11/17 08:45 Recent Labs: Laboratory Last Values WBC 9.9 Th/cmm (4.8-10.8) 10/11/17 08:45 RBC 2.34 Mil/cmm (3.80-5.80) L 10/11/17 08:45 Hgb 7.5 gm/dL (12-16) L* 10/11/17 08:45 Hct 21.9 % (41.0-60) L 10/11/17 08:45 MCV 93.5 fl (80-99) 10/11/17 08:45 MCH 31.9 pg (27.0-31.0) H 10/11/17 08:45 MCHC Differential 34.1 pg (28.0-36.0) 10/11/17 08:45 RDW 17.6 % (11.5-20.0) 10/11/17 08:45 Plt Count 165 Th/cmm (150-400) 10/11/17 08:45 MPV 10.8 fl 10/11/17 08:45 Neutrophils % 65.4 % (40.0-80.0) 10/06/17 05:58 Band Neutrophils % 4 % (0-10) 10/10/17 04:10 Lymphocytes % 14.6 % (20.0-50.0) L 10/06/17 05:58 Monocytes % 7.1 % (2.0-10.0) 10/06/17 05:58 Eosinophils % 12.7 % (0.0-5.0) H 10/06/17 05:58 Basophils % 0.2 % (0.0-2.0) 10/06/17 05:58 Neutrophils (Manual) 80 % (40-80) 10/10/17 04:10 Lymphocytes 8 % (20-50) L 10/10/17 04:10 Monocytes 6 % (2-10) 10/10/17 04:10 Eosinophils 2 % (0-5) 10/10/17 04:10 Hypochromia 1+ 10/10/17 04:10 Platelet Estimate ADEQUATE (NORMAL) 10/10/17 04:10 Polychromasia 1+ 10/10/17 04:10 Poikilocytosis 1+ 10/08/17 04:15 Macrocytosis 1+ 10/08/17 04:15 PT 11.0 SECONDS (9.5-11.5) 10/11/17 08:45 INR 1.06 (0.5-1.4) 10/11/17 08:45 PTT (Actin FS) 25.0 SECONDS (26.0-38.0) L 10/11/17 08:45 Specimen Source Arterial 10/10/17 11:43 Sample Site Left Radial 10/10/17 11:43 pH 7.38 (7.35-7.45) 10/10/17 11:43 pCO2 34.0 mmHg (35.0-45.0) L 10/10/17 11:43 pO2 109.0 mmHg (80.0-100.0) H 10/10/17 11:43 HCO3 21.6 mEq/L (20.0-26.0) 10/10/17 11:43 Base Excess -4.3 mEq/L (-3.0-3.0) L 10/10/17 11:43 O2 Saturation 98.0 % (92.0-100.0) 10/10/17 11:43 Ramiro Test Positive 10/10/17 11:43 Vent Rate NA 10/10/17 11:43 Inspired O2 40 10/10/17 11:43 Tidal Volume NA 10/10/17 11:43 PEEP NA 10/10/17 11:43 Pressure (ins/psv/peep) NA 10/10/17 11:43 Critical Value LZHANG 10/10/17 11:43 Sodium 148 mEq/L (136-145) H 10/11/17 08:45 Potassium 3.5 mEq/L (3.5-5.1) 10/11/17 08:45 Chloride 120 mEq/L (98-107) H 10/11/17 08:45 Carbon Dioxide 19.3 mEq/L (21.0-31.0) L 10/11/17 08:45 Anion Gap 12.2 (7.0-16.0) 10/11/17 08:45 BUN 17 mg/dL (7-25) 10/11/17 08:45 Creatinine 0.8 mg/dL (0.7-1.3) 10/11/17 08:45 Est GFR ( Amer) TNP 10/11/17 08:45 Est GFR (Non-Af Amer) TNP 10/11/17 08:45 BUN/Creatinine Ratio 21.3 10/11/17 08:45 Glucose 98 mg/dL (70-105) 10/11/17 08:45 Whole Bld Lactic Acid 1.94 mmol/L (0.60-1.99) 10/07/17 16:26 Calcium 7.8 mg/dL (8.6-10.3) L 10/11/17 08:45 Iron 26 ug/dL (38-169) L 10/09/17 05:50 TIBC 218 ug/dL (250-450) L 10/09/17 05:50 Iron Saturation 12 % (15-55) L 10/09/17 05:50 Unsaturated IBC 192 ug/dL (111-343) 10/09/17 05:50 Ferritin 87 ng/mL (30-400) 10/09/17 05:50 Urine Source CLEAN C 10/04/17 10:00 Urine Color YELLOW 10/04/17 10:00 Urine Clarity HAZY (CLEAR) 10/04/17 10:00 Urine pH 6.5 (4.6 - 8.0) 10/04/17 10:00 Ur Specific [place] 1.020 (1.005-1.030) 10/04/17 10:00 Urine Protein TRACE mg/dL (NEGATIVE) 10/04/17 10:00 Urine Glucose (UA) NEGATIVE mg/dL (NEGATIVE) 10/04/17 10:00 Urine Ketones NEGATIVE mg/dL (NEGATIVE) 10/04/17 10:00 Urine Blood NEGATIVE (NEGATIVE) 10/04/17 10:00 Urine Nitrate NEGATIVE (NEGATIVE) 10/04/17 10:00 Urine Bilirubin NEGATIVE (NEGATIVE) 10/04/17 10:00 Urine Urobilinogen 4.0 E.U./dL (0.2 - 1.0) H 10/04/17 10:00 Ur Leukocyte Esterase NEGATIVE (NEGATIVE) 10/04/17 10:00 Urine RBC 0-2 /hpf (0-5) H 10/04/17 10:00 Urine WBC 2-5 /hpf (0-5) H 10/04/17 10:00 Ur Epithelial Cells OCCASIONAL /lpf (FEW) 10/04/17 10:00 Urine Bacteria FEW /hpf (NONE SEEN) 10/04/17 10:00 Stool Occult Blood POSITIVE (NEGATIVE) H 10/08/17 19:00 Influenza A (Rapid) NEG FOR INF A 10/04/17 02:53 Influenza B (Rapid) NEG FOR INF B 10/04/17 02:53 - Physical Exam Vitals and I&O: Vital Signs Temp 96.6 F 10/11/17 12:00 Pulse 81 10/11/17 12:15 Resp 13 10/11/17 12:00 BP 97/41 10/11/17 12:15 Pulse Ox 99 10/11/17 12:00 Intake & Output 10/10/17 10/11/17 10/11/17 18:59 06:59 18:59 Intake Total 1055 2082.558 890.292 Output Total 1450 900 Balance -395 1182.558 890.292 Weight (lbs) 61.235 kg 60.328 kg Intake: Intake, IV Amount 1055 2082.558 890.292 DOPamine 400 mg In 250 ml 72.558 1.125 @ 4 MCG/KG/MIN 8.437 mls /hr IV TITR PRN Rx#: [id number] Levofloxacin 250mg/50mL 50 250 mg In 50 ml @ 50 mls/ hr IV Q24H [facility] Rx#: [id number] Potassium Chloride 10 meq 1005 2010 779.167 In Sodium Chloride 0.9% 1,000 ml @ 125 mls/hr IV .Q8H3M [facility] Rx#:[id number] Sodium Ferric Gluconate 110 125 mg In Sodium Chloride 0.9% 100 ml @ 100 mls/hr IV Q24HR [facility] Rx#: [id number] Oral 0 Output: Urine 700 600 Stool 750 300 Other: Stool Characteristics Liquid Liquid Liquid Brown Brown Brown Active Medications: Current Medications Acetaminophen (Tylenol) 650 mg GT Q6HR PRN PRN Reason: Pain or Fever >101 Stop: 12/01/17 21:40 Last Admin: 10/06/17 16:05 Dose: 650 mg Albuterol/Ipratropium (Duoneb Neb) 3 ml HHN Q4HRT PRN PRN Reason: Wheezing Stop: 12/05/17 15:10 Albuterol/Ipratropium (Duoneb Neb) 3 ml HHN Q4HRT [facility] Stop: 12/05/17 15:14 Last Admin: 10/11/17 10:53 Dose: 3 ml Aspirin (Aspirin Chewable) 81 mg GT DAILY [facility] Stop: 12/02/17 08:59 Last Admin: 10/11/17 09:14 Dose: 81 mg Bisacodyl (Dulcolax 10 Mg Supp) 10 mg RC DAILY PRN PRN Reason: Constipation Stop: 12/01/17 21:40 Potassium Chloride 40 meq/Lidocaine HCl 25 mg/ Sodium Chloride 272.5 mls @ 68 mls/hr IV DAILY PRN PRN Reason: k level less than 3.2 Stop: 12/01/17 21:46 Last Admin: 10/08/17 08:39 Dose: 68 mls/hr Magnesium Sulfate (Magnesium Sulfate Premix) 2 gm in 50 mls @ 25 mls/hr IV DAILY PRN PRN Reason: Magnesium level less than 1.6 Stop: 12/01/17 21:46 Potassium Chloride 10 meq/ (Sodium Chloride) 1,005 mls @ 125 mls/hr IV .Q8H3M [facility] Stop: 12/08/17 15:55 Last Admin: 10/11/17 12:44 Dose: 125 mls/hr Dopamine HCl/Dextrose (Dopamine) 400 mg in 250 mls @ 8.437 mls/hr IV TITR PRN; Protocol; 4 MCG/KG/MIN PRN Reason: BP MAINTENANCE (PER PROTOCOL) Stop: 12/08/17 19:30 Last Titration: 10/11/17 07:05 Dose: 0 mcg/kg/min, 0 mls/hr Levofloxacin (Levaquin Pb) 250 mg in 50 mls @ 50 mls/hr IV Q24H [facility] Stop: 12/09/17 13:59 Last Admin: 10/11/17 13:48 Dose: 50 mls/hr Ferric Sodium Gluconate Complex 125 mg/ Sodium Chloride 110 mls @ 100 mls/hr IV Q24HR [facility] Stop: 10/18/17 10:59 Last Infusion: 10/11/17 12:40 Dose: Infused Lactobacillus Rhamnosus (Culturelle 15b) 1 each PO DAILY [facility] Stop: 12/05/17 08:59 Last Admin: 10/11/17 09:14 Dose: 1 each Levothyroxine Sodium (Synthroid) 0.05 mg GT QDAC [facility] Stop: 12/02/17 07:29 Last Admin: 10/11/17 09:16 Dose: 0.05 mg Lorazepam (Ativan) 2 mg IVP Q4HR PRN; Protocol PRN Reason: Anxiety Stop: 12/01/17 21:46 Last Admin: 10/11/17 12:35 Dose: 2 mg Magnesium Hydroxide (Milk Of Magnesia) 30 ml GT HS PRN PRN Reason: Constipation Stop: 12/01/17 21:40 Methylprednisolone Sodium Succinate (Solu-Medrol) 40 mg IVP Q6HR [facility] Stop: 12/05/17 17:59 Last Admin: 10/11/17 12:44 Dose: 40 mg Metoprolol Tartrate (Lopressor) 25 mg GT BID [facility] Stop: 12/02/17 08:59 Last Admin: 10/11/17 09:14 Dose: Not Given Miscellaneous (Probiotic Screen) 1 ea PRN PRN PRN Reason: PROTOCOL Stop: 12/04/17 09:59 Miscellaneous (Vte Chemical Prophylaxis Screen/ Admission) 1 ea PRN PRN PRN Reason: PROTOCOL Stop: 12/07/17 14:31 Morphine Sulfate (Morphine) 2 mg IVP Q4H PRN PRN Reason: moderate pain Stop: 12/01/17 21:46 Last Admin: 10/10/17 23:20 Dose: 2 mg Ondansetron HCl (Zofran) 4 mg IVP Q6H PRN PRN Reason: Nausea / Vomiting Stop: 12/01/17 21:46 Pantoprazole Sodium (Protonix) 40 mg IVP BID [facility] Stop: 12/05/17 16:59 Last Admin: 10/11/17 09:14 Dose: 40 mg Polyethylene Glycol (Miralax) 17 gm PO BID [facility] Stop: 12/04/17 10:14 Last Admin: 10/11/17 09:05 Dose: 17 gm Potassium Chloride (Potassium Chloride Elixir) 40 meq PO DAILY PRN PRN Reason: k level less than 3.5 Stop: 12/03/17 07:20 Last Admin: 10/06/17 08:47 Dose: 40 meq Sodium Phosphate (Fleet Enema) 135 ml RC Q48H PRN PRN Reason: Constipation Stop: 12/01/17 21:40 Last Admin: 10/09/17 09:40 Dose: 135 ml Zolpidem Tartrate (Ambien) 10 mg PO HS PRN PRN Reason: Insomnia Stop: 12/01/17 21:46 General: no acute distress, well developed, well nourished HEENT: atraumatic, normocephalic, PERRLA, EOMI Neck: supple, no thyromegaly Cardiovascular: S1S2, regular Lungs: clear to auscultation bilaterally, clear to percussion Abdomen: soft, no tender, no distended Extremities: no cyanosis, no clubbing, no edema Neurological: awake, alert, oriented Skin: intact - Procedures Procedures: Procedures Procedure Code Date INSERT EMERGENCY AIRWAY [id number] 10/02/17 INSERTION OF ENDOTRACHEAL AIRWAY INTO [place], VIA OPENING 0CA05MM 10/02/17 RESPIRATORY VENTILATION, 24-96 CONSECUTIVE HOURS [id number] 10/02/17 VENT MGMT INPAT INIT DAY 10/02/17 VENT MGMT INPAT SUBQ DAY 10/02/17 Infectious Disease Assmt/Plan - Assessment Assessment: 1. Leukocytosis, respiratory failure, sepsis. 2. Aspiration pneumonia versus healthcare facility associated pneumonia. 3. Dementia. 4. COPD and COPD exacerbation. 5. Hypertension. 6. Acute respiratory failure on ventilator. - Plan Plan: change meropenem to levquin iV, which can be changed to po if needed. Nutritional Asmnt/Malnutr-PDOC - Dietary Evaluation Malnutrition Findings (Please click <Entered> for more info): Nutritional Asmnt/Malnutrition Start: 10/05/17 17: 05 Text: Status: Complete Freq: Document 10/05/17 17:05 LCHENG (Rec: 10/05/17 17:26 LCHENG [id number]) Nutritional Asmnt/Malnutrition Patient General Information Nutritional Screening High Risk Diagnosis aspiration PNA Pertinent Medical Hx/Surgical Hx alzheimer demtnia, COPD, HTN, dysphagia Subjective Information Pt seen resting in bed at time of visit. Received TF Nutren 1.0 fiber 20ml/hr continuous this morning. Notified RN we do not have this formula in stock. changed to Fibersource HN at 20ml/hr continuous. Per notes, pt had fecal impaction, on enema and golytely yesterday, had 5 times of liquidy brown BM. Current Diet Order/ Nutrition Support Fibersource HN at 20ml/hr continuous, providing 576kcal, 26g protein Pertinent Medications D5-0.45ns, culturelle, synthroid, Magnium, piperacillin, miralx, kcl Pertinent Labs 10/05 Na 146, K 3.3, Cl 114, BUN 27, Cr 1.0, Ca 8.1 Nutritional Hx/Data Height 1.78 m Height (Calculated Centimeters) 177.8 Current Weight (lbs) 54.885 kg Weight (Calculated Kilograms) 54.9 Weight (Calculated Grams) 86670.7 [place] Body Weight 166 % [place] Body Weight 73 Body Mass Index (BMI) 17.3 Weight Status Overweight GI Symptoms Last BM 10/05 x 4 Difficult in: None Skin Integrity/Comment: intact Estimated Nutritional Goals BEE in Kcals: Using Current wt Calories/Kcals/Kg 27-32 Kcals Calculated 7381-4373 Protein: Using Current wt Protein g/k.1-1.4 Protein Calculated 61-72 Fluid: ml 1650-1925ml (1ml/kcal) Nutritional Problem 1. Problem Problem inadequate intake from enteral feeding Etiology TF running at low rate d/t fecal impaction Signs/Symptoms: current TF meeting 35% of nutritional needs Malnutrition Alert Protein-Calorie Malnutrition N/A Is there a minimum of two criteria No selected? Query Text:Check all the applicable criteria. A minimum of two criteria are recommended for diagnosis of either severe or non-severe malnutrition. Intervention/Recommendation Comments 1. Continue with current TF regimen at this time. When medically appropriate, increase to goal rate of 50ml/ hr, providing 1440kcal and 65g protein, meeting 100% of nutritional needs. 2. Monitor TF rate, tolerance, wt weekly, skin integrity and labs 3. F/U as nam risk in 2-3 days, 10/07-10/08 Expected Outcomes/Goals Expected Outcomes/Goals 1. Pt to meet at least 75% of nutritional needs via nutrition support with tolerance 2. Wt stability, GI function to improve, skin to remain intact, labs to approach WNL.
[2017-10-12] MEDS: methylPREDNISolone SS 40 mg Vial IVP SCH ×4 (01:00→21:13)
[2017-10-12] MEDS: Albuterol/Ipratropium Neb 3 ML AERS HHN SCH ×6 (02:25→23:26)
[2017-10-12 05:07] LABS: MEAN CORPUSCULAR HEMOGLOBIN 31.7 pg (27.0-31.0); MEAN CORPUSCULAR HGB CONC 33.3 pg (28.0-36.0); MEAN PLATELET VOLUME 10.9 fl; PLATELET COUNT 183 Th/cmm (150-400); RED BLOOD COUNT 2.38 Mil/cmm (3.80-5.80); RED CELL DISTRIBUTION WIDTH 17.8 % (11.5-20.0); WHITE BLOOD COUNT 11.6 Th/cmm (4.8-10.8)
[2017-10-12 05:09] LABS: HEMATOCRIT 22.6 % (41.0-60); HEMOGLOBIN 7.5 gm/dL (12-16)
[2017-10-12 05:18] LABS: ANION GAP 12.1 (7.0-16.0); BUN - UREA NITROGEN 18 mg/dL (7-25); CARBON DIOXIDE 18.6 mEq/L (21.0-31.0); CHLORIDE 120 mEq/L (98-107); CREATININE - SERUM 0.9 mg/dL (0.7-1.3); GLUCOSE 75 mg/dL (70-105); POTASSIUM SERUM 3.7 mEq/L (3.5-5.1); SODIUM SERUM 147 mEq/L (136-145)
[2017-10-12 05:37] LABS: BAND NEUTROPHILE 2 % (0-10); EOSINOPHIL 2 % (0-5); HYPOCHROMIA 1+; LYMPHOCYTE 6 % (20-50); MONOCYTE 4 % (2-10); NEUTROPHILS 86 % (40-80); PLATELET ESTIMATE ADEQUATE (NORMAL); POLYCHROMASIA 1+; TOTAL CELLS COUNTED 100
[2017-10-12] MEDS: Levothyroxine 0.05 Mg Tab GT SCH (06:35)
--- NOTE | 2017-10-12 08:39 | GI Progress Note ---
Subjective - Review of Systems Service Date: 10/12/17 Subjective: KUB shows some improvement, having lots of BMs Objective - Results Result Diagrams: 10/12/17 04:15 10/12/17 04:15 Recent Labs: Laboratory Last Values WBC 11.6 Th/cmm (4.8-10.8) H 10/12/17 04:15 RBC 2.38 Mil/cmm (3.80-5.80) L 10/12/17 04:15 Hgb 7.5 gm/dL (12-16) L* 10/12/17 04:15 Hct 22.6 % (41.0-60) L 10/12/17 04:15 MCV 95.0 fl (80-99) 10/12/17 04:15 MCH 31.7 pg (27.0-31.0) H 10/12/17 04:15 MCHC Differential 33.3 pg (28.0-36.0) 10/12/17 04:15 RDW 17.8 % (11.5-20.0) 10/12/17 04:15 Plt Count 183 Th/cmm (150-400) 10/12/17 04:15 MPV 10.9 fl 10/12/17 04:15 Neutrophils % 65.4 % (40.0-80.0) 10/06/17 05:58 Band Neutrophils % 2 % (0-10) 10/12/17 04:15 Lymphocytes % 14.6 % (20.0-50.0) L 10/06/17 05:58 Monocytes % 7.1 % (2.0-10.0) 10/06/17 05:58 Eosinophils % 12.7 % (0.0-5.0) H 10/06/17 05:58 Basophils % 0.2 % (0.0-2.0) 10/06/17 05:58 Neutrophils (Manual) 86 % (40-80) H 10/12/17 04:15 Lymphocytes 6 % (20-50) L 10/12/17 04:15 Monocytes 4 % (2-10) 10/12/17 04:15 Eosinophils 2 % (0-5) 10/12/17 04:15 Hypochromia 1+ 10/12/17 04:15 Platelet Estimate ADEQUATE (NORMAL) 10/12/17 04:15 Polychromasia 1+ 10/12/17 04:15 Poikilocytosis 1+ 10/08/17 04:15 Macrocytosis 1+ 10/08/17 04:15 PT 11.0 SECONDS (9.5-11.5) 10/11/17 08:45 INR 1.06 (0.5-1.4) 10/11/17 08:45 PTT (Actin FS) 25.0 SECONDS (26.0-38.0) L 10/11/17 08:45 Specimen Source Arterial 10/10/17 11:43 Sample Site Left Radial 10/10/17 11:43 pH 7.38 (7.35-7.45) 10/10/17 11:43 pCO2 34.0 mmHg (35.0-45.0) L 10/10/17 11:43 pO2 109.0 mmHg (80.0-100.0) H 10/10/17 11:43 HCO3 21.6 mEq/L (20.0-26.0) 10/10/17 11:43 Base Excess -4.3 mEq/L (-3.0-3.0) L 10/10/17 11:43 O2 Saturation 98.0 % (92.0-100.0) 10/10/17 11:43 Ramiro Test Positive 10/10/17 11:43 Vent Rate NA 10/10/17 11:43 Inspired O2 40 10/10/17 11:43 Tidal Volume NA 10/10/17 11:43 PEEP NA 10/10/17 11:43 Pressure (ins/psv/peep) NA 10/10/17 11:43 Critical Value LZHANG 10/10/17 11:43 Sodium 147 mEq/L (136-145) H 10/12/17 04:15 Potassium 3.7 mEq/L (3.5-5.1) 10/12/17 04:15 Chloride 120 mEq/L (98-107) H 10/12/17 04:15 Carbon Dioxide 18.6 mEq/L (21.0-31.0) L 10/12/17 04:15 Anion Gap 12.1 (7.0-16.0) 10/12/17 04:15 BUN 18 mg/dL (7-25) 10/12/17 04:15 Creatinine 0.9 mg/dL (0.7-1.3) 10/12/17 04:15 Est GFR ( Amer) TNP 10/12/17 04:15 Est GFR (Non-Af Amer) TNP 10/12/17 04:15 BUN/Creatinine Ratio 20.0 10/12/17 04:15 Glucose 75 mg/dL (70-105) 10/12/17 04:15 Whole Bld Lactic Acid 1.94 mmol/L (0.60-1.99) 10/07/17 16:26 Calcium 8.0 mg/dL (8.6-10.3) L 10/12/17 04:15 Iron 26 ug/dL (38-169) L 10/09/17 05:50 TIBC 218 ug/dL (250-450) L 10/09/17 05:50 Iron Saturation 12 % (15-55) L 10/09/17 05:50 Unsaturated IBC 192 ug/dL (111-343) 10/09/17 05:50 Ferritin 87 ng/mL (30-400) 10/09/17 05:50 Urine Source CLEAN C 10/04/17 10:00 Urine Color YELLOW 10/04/17 10:00 Urine Clarity HAZY (CLEAR) 10/04/17 10:00 Urine pH 6.5 (4.6 - 8.0) 10/04/17 10:00 Ur Specific [place] 1.020 (1.005-1.030) 10/04/17 10:00 Urine Protein TRACE mg/dL (NEGATIVE) 10/04/17 10:00 Urine Glucose (UA) NEGATIVE mg/dL (NEGATIVE) 10/04/17 10:00 Urine Ketones NEGATIVE mg/dL (NEGATIVE) 10/04/17 10:00 Urine Blood NEGATIVE (NEGATIVE) 10/04/17 10:00 Urine Nitrate NEGATIVE (NEGATIVE) 10/04/17 10:00 Urine Bilirubin NEGATIVE (NEGATIVE) 10/04/17 10:00 Urine Urobilinogen 4.0 E.U./dL (0.2 - 1.0) H 10/04/17 10:00 Ur Leukocyte Esterase NEGATIVE (NEGATIVE) 10/04/17 10:00 Urine RBC 0-2 /hpf (0-5) H 10/04/17 10:00 Urine WBC 2-5 /hpf (0-5) H 10/04/17 10:00 Ur Epithelial Cells OCCASIONAL /lpf (FEW) 10/04/17 10:00 Urine Bacteria FEW /hpf (NONE SEEN) 10/04/17 10:00 Stool Occult Blood POSITIVE (NEGATIVE) H 10/08/17 19:00 Influenza A (Rapid) NEG FOR INF A 10/04/17 02:53 Influenza B (Rapid) NEG FOR INF B 10/04/17 02:53 - Physical Exam Vitals and I&O: Vital Signs Temp 98.2 F 10/12/17 06:00 Pulse 87 10/12/17 07:00 Resp 17 10/12/17 07:00 BP 145/72 10/12/17 07:00 Pulse Ox 98 10/12/17 07:00 Intake & Output 10/11/17 10/12/17 10/12/17 18:59 06:59 18:59 Intake Total 9782.902 3824.855 150 Output Total 500 600 Balance 1606.565 9882.855 -450 Weight (lbs) 61.377 kg 61.371 kg Intake: Intake, IV Amount 4669.019 0853.855 DOPamine 400 mg In 250 ml 1.125 6.855 @ 4 MCG/KG/MIN 8.437 mls /hr IV TITR PRN Rx#: [id number] Levofloxacin 250mg/50mL 50 250 mg In 50 ml @ 50 mls/ hr IV Q24H [facility] Rx#: [id number] Potassium Chloride 10 meq 8107.088 6366 In Sodium Chloride 0.9% 1,000 ml @ 125 mls/hr IV .Q8H3M [facility] Rx#:[id number] Sodium Ferric Gluconate 110 125 mg In Sodium Chloride 0.9% 100 ml @ 100 mls/hr IV Q24HR [facility] Rx#: [id number] Other 374 150 Output: Urine 400 400 Stool 100 200 Other: Stool Characteristics Liquid Liquid Brown Brown Active Medications: Current Medications Acetaminophen (Tylenol) 650 mg GT Q6HR PRN PRN Reason: Pain or Fever >101 Stop: 12/01/17 21:40 Last Admin: 10/06/17 16:05 Dose: 650 mg Albuterol/Ipratropium (Duoneb Neb) 3 ml HHN Q4HRT PRN PRN Reason: Wheezing Stop: 12/05/17 15:10 Albuterol/Ipratropium (Duoneb Neb) 3 ml HHN Q4HRT [facility] Stop: 12/05/17 15:14 Last Admin: 10/12/17 06:58 Dose: 3 ml Aspirin (Aspirin Chewable) 81 mg GT DAILY [facility] Stop: 12/02/17 08:59 Last Admin: 10/11/17 09:14 Dose: 81 mg Bisacodyl (Dulcolax 10 Mg Supp) 10 mg RC DAILY PRN PRN Reason: Constipation Stop: 12/01/17 21:40 Potassium Chloride 40 meq/Lidocaine HCl 25 mg/ Sodium Chloride 272.5 mls @ 68 mls/hr IV DAILY PRN PRN Reason: k level less than 3.2 Stop: 12/01/17 21:46 Last Admin: 10/08/17 08:39 Dose: 68 mls/hr Magnesium Sulfate (Magnesium Sulfate Premix) 2 gm in 50 mls @ 25 mls/hr IV DAILY PRN PRN Reason: Magnesium level less than 1.6 Stop: 12/01/17 21:46 Potassium Chloride 10 meq/ (Sodium Chloride) 1,005 mls @ 125 mls/hr IV .Q8H3M [facility] Stop: 12/08/17 15:55 Last Admin: 10/12/17 02:10 Dose: 125 mls/hr Dopamine HCl/Dextrose (Dopamine) 400 mg in 250 mls @ 8.437 mls/hr IV TITR PRN; Protocol; 4 MCG/KG/MIN PRN Reason: BP MAINTENANCE (PER PROTOCOL) Stop: 12/08/17 19:30 Last Titration: 10/12/17 03:15 Dose: 0 mcg/kg/min, 0 mls/hr Levofloxacin (Levaquin Pb) 250 mg in 50 mls @ 50 mls/hr IV Q24H [facility] Stop: 12/09/17 13:59 Last Infusion: 10/11/17 14:50 Dose: Infused Ferric Sodium Gluconate Complex 125 mg/ Sodium Chloride 110 mls @ 100 mls/hr IV Q24HR [facility] Stop: 10/18/17 10:59 Last Infusion: 10/11/17 12:40 Dose: Infused Levothyroxine Sodium (Synthroid) 0.05 mg GT QDAC [facility] Stop: 12/02/17 07:29 Last Admin: 10/12/17 06:35 Dose: 0.05 mg Lorazepam (Ativan) 2 mg IVP Q4HR PRN; Protocol PRN Reason: Anxiety Stop: 12/01/17 21:46 Last Admin: 10/11/17 12:35 Dose: 2 mg Magnesium Hydroxide (Milk Of Magnesia) 30 ml GT HS PRN PRN Reason: Constipation Stop: 12/01/17 21:40 Methylprednisolone Sodium Succinate (Solu-Medrol) 40 mg IVP Q6HR [facility] Stop: 12/05/17 17:59 Last Admin: 10/12/17 06:38 Dose: 40 mg Metoprolol Tartrate (Lopressor) 25 mg GT BID [facility] Stop: 12/02/17 08:59 Last Admin: 10/12/17 08:12 Dose: Not Given Miscellaneous (Probiotic Screen) 1 ea PRN PRN PRN Reason: PROTOCOL Stop: 12/04/17 09:59 Miscellaneous (Vte Chemical Prophylaxis Screen/ Admission) 1 ea PRN PRN PRN Reason: PROTOCOL Stop: 12/07/17 14:31 Morphine Sulfate (Morphine) 2 mg IVP Q4H PRN PRN Reason: moderate pain Stop: 12/01/17 21:46 Last Admin: 10/10/17 23:20 Dose: 2 mg Ondansetron HCl (Zofran) 4 mg IVP Q6H PRN PRN Reason: Nausea / Vomiting Stop: 12/01/17 21:46 Pantoprazole Sodium (Protonix) 40 mg IVP BID [facility] Stop: 12/05/17 16:59 Last Admin: 10/11/17 16:57 Dose: 40 mg Polyethylene Glycol (Miralax) 17 gm PO BID [facility] Stop: 12/04/17 10:14 Last Admin: 10/11/17 16:57 Dose: 17 gm Potassium Chloride (Potassium Chloride Elixir) 40 meq PO DAILY PRN PRN Reason: k level less than 3.5 Stop: 12/03/17 07:20 Last Admin: 10/06/17 08:47 Dose: 40 meq Sodium Phosphate (Fleet Enema) 135 ml RC Q48H PRN PRN Reason: Constipation Stop: 12/01/17 21:40 Last Admin: 10/09/17 09:40 Dose: 135 ml Zolpidem Tartrate (Ambien) 10 mg PO HS PRN PRN Reason: Insomnia Stop: 12/01/17 21:46 General: Mild distress HEENT: Atraumatic, PERRLA, Other (intubated, ET tube in plce) Neck: Supple, no JVD, no Thyromegaly Cardiovascular: Regular rate Lungs: Other (On vent. Decreased BS BL.) Abdomen: Other (mild abd distension. G tube present.), no Tender Extremities: no Clubbing, no Edema Neurological: Other (Pt intubated. No awake or alert. ) Skin: no Rash - Procedures Procedures: Procedures Procedure Code Date INSERT EMERGENCY AIRWAY 64046 10/02/17 INSERTION OF ENDOTRACHEAL AIRWAY INTO TRACHEA, VIA OPENING [id number] 10/02/17 RESPIRATORY VENTILATION, 24-96 CONSECUTIVE HOURS [id number] 10/02/17 VENT MGMT INPAT INIT DAY 10/02/17 VENT MGMT INPAT SUBQ DAY 10/02/17 Assessment/Plan - Assessment Assessment: # Fecal impaction # Abd distension # Possible pneumonia # Anemia CT and KUB show large fecal impaction. Now s/p several enemas and golytely bowel prep and is having liquid stool. KUB on 10/04 shows some improvement although still large amount of stool. KUB 10/09 again shows persisting impaction. Some improvement noted on KUB 10/11 after 2nd bowel prep. No overt GI bleeding, although pt has had some blood loss from his trach. OB stool occult is positive, but this is expected given he has a large fecal impaction. # Respiratory failure, possible pneumonia Transferred to ICU 10/06 for increased respiratory distress, and was intubated for a time Plan: - would not act on stool OB positive without evidence of overt GI bleeding. Fecal impaction will cause a stool occult positive - cont miralax bid dosing and daily enema. Will add dulcolax as well - cont with 7 days of IV iron to resupply iron stores - management of pneumonia as per primary
--- NOTE | 2017-10-12 08:44 | General Progress Note ---
Subjective - Review of Systems Service Date: 10/12/17 Subjective: Pt seen and eval. He's been extubated for 2 days now. He's off the dopamine drip now. Has sig fecal impaction. However, after the bowel prep he had sig amount of BM on 10/11/16. I discussed care with Dr. Santos as well. No fevers or chills. ID, Gi, and Pulm following. WBC trending down. Hgb is being monitored. It's been stable around 7.5. Discussed care with RN in detail. On IV Vanco. Objective - Results Result Diagrams: 10/12/17 04:15 10/12/17 04:15 Recent Labs: Laboratory Last Values WBC 11.6 Th/cmm (4.8-10.8) H 10/12/17 04:15 RBC 2.38 Mil/cmm (3.80-5.80) L 10/12/17 04:15 Hgb 7.5 gm/dL (12-16) L* 10/12/17 04:15 Hct 22.6 % (41.0-60) L 10/12/17 04:15 MCV 95.0 fl (80-99) 10/12/17 04:15 MCH 31.7 pg (27.0-31.0) H 10/12/17 04:15 MCHC Differential 33.3 pg (28.0-36.0) 10/12/17 04:15 RDW 17.8 % (11.5-20.0) 10/12/17 04:15 Plt Count 183 Th/cmm (150-400) 10/12/17 04:15 MPV 10.9 fl 10/12/17 04:15 Neutrophils % 65.4 % (40.0-80.0) 10/06/17 05:58 Band Neutrophils % 2 % (0-10) 10/12/17 04:15 Lymphocytes % 14.6 % (20.0-50.0) L 10/06/17 05:58 Monocytes % 7.1 % (2.0-10.0) 10/06/17 05:58 Eosinophils % 12.7 % (0.0-5.0) H 10/06/17 05:58 Basophils % 0.2 % (0.0-2.0) 10/06/17 05:58 Neutrophils (Manual) 86 % (40-80) H 10/12/17 04:15 Lymphocytes 6 % (20-50) L 10/12/17 04:15 Monocytes 4 % (2-10) 10/12/17 04:15 Eosinophils 2 % (0-5) 10/12/17 04:15 Hypochromia 1+ 10/12/17 04:15 Platelet Estimate ADEQUATE (NORMAL) 10/12/17 04:15 Polychromasia 1+ 10/12/17 04:15 Poikilocytosis 1+ 10/08/17 04:15 Macrocytosis 1+ 10/08/17 04:15 PT 11.0 SECONDS (9.5-11.5) 10/11/17 08:45 INR 1.06 (0.5-1.4) 10/11/17 08:45 PTT (Actin FS) 25.0 SECONDS (26.0-38.0) L 10/11/17 08:45 Specimen Source Arterial 10/10/17 11:43 Sample Site Left Radial 10/10/17 11:43 pH 7.38 (7.35-7.45) 10/10/17 11:43 pCO2 34.0 mmHg (35.0-45.0) L 10/10/17 11:43 pO2 109.0 mmHg (80.0-100.0) H 10/10/17 11:43 HCO3 21.6 mEq/L (20.0-26.0) 10/10/17 11:43 Base Excess -4.3 mEq/L (-3.0-3.0) L 10/10/17 11:43 O2 Saturation 98.0 % (92.0-100.0) 10/10/17 11:43 Ramiro Test Positive 10/10/17 11:43 Vent Rate NA 10/10/17 11:43 Inspired O2 40 10/10/17 11:43 Tidal Volume NA 10/10/17 11:43 PEEP NA 10/10/17 11:43 Pressure (ins/psv/peep) NA 10/10/17 11:43 Critical Value LZHANG 10/10/17 11:43 Sodium 147 mEq/L (136-145) H 10/12/17 04:15 Potassium 3.7 mEq/L (3.5-5.1) 10/12/17 04:15 Chloride 120 mEq/L (98-107) H 10/12/17 04:15 Carbon Dioxide 18.6 mEq/L (21.0-31.0) L 10/12/17 04:15 Anion Gap 12.1 (7.0-16.0) 10/12/17 04:15 BUN 18 mg/dL (7-25) 10/12/17 04:15 Creatinine 0.9 mg/dL (0.7-1.3) 10/12/17 04:15 Est GFR ( Amer) TNP 10/12/17 04:15 Est GFR (Non-Af Amer) TNP 10/12/17 04:15 BUN/Creatinine Ratio 20.0 10/12/17 04:15 Glucose 75 mg/dL (70-105) 10/12/17 04:15 Whole Bld Lactic Acid 1.94 mmol/L (0.60-1.99) 10/07/17 16:26 Calcium 8.0 mg/dL (8.6-10.3) L 10/12/17 04:15 Iron 26 ug/dL (38-169) L 10/09/17 05:50 TIBC 218 ug/dL (250-450) L 10/09/17 05:50 Iron Saturation 12 % (15-55) L 10/09/17 05:50 Unsaturated IBC 192 ug/dL (111-343) 10/09/17 05:50 Ferritin 87 ng/mL (30-400) 10/09/17 05:50 Urine Source CLEAN C 10/04/17 10:00 Urine Color YELLOW 10/04/17 10:00 Urine Clarity HAZY (CLEAR) 10/04/17 10:00 Urine pH 6.5 (4.6 - 8.0) 10/04/17 10:00 Ur Specific [place] 1.020 (1.005-1.030) 10/04/17 10:00 Urine Protein TRACE mg/dL (NEGATIVE) 10/04/17 10:00 Urine Glucose (UA) NEGATIVE mg/dL (NEGATIVE) 10/04/17 10:00 Urine Ketones NEGATIVE mg/dL (NEGATIVE) 10/04/17 10:00 Urine Blood NEGATIVE (NEGATIVE) 10/04/17 10:00 Urine Nitrate NEGATIVE (NEGATIVE) 10/04/17 10:00 Urine Bilirubin NEGATIVE (NEGATIVE) 10/04/17 10:00 Urine Urobilinogen 4.0 E.U./dL (0.2 - 1.0) H 10/04/17 10:00 Ur Leukocyte Esterase NEGATIVE (NEGATIVE) 10/04/17 10:00 Urine RBC 0-2 /hpf (0-5) H 10/04/17 10:00 Urine WBC 2-5 /hpf (0-5) H 10/04/17 10:00 Ur Epithelial Cells OCCASIONAL /lpf (FEW) 10/04/17 10:00 Urine Bacteria FEW /hpf (NONE SEEN) 10/04/17 10:00 Stool Occult Blood POSITIVE (NEGATIVE) H 10/08/17 19:00 Influenza A (Rapid) NEG FOR INF A 10/04/17 02:53 Influenza B (Rapid) NEG FOR INF B 10/04/17 02:53 - Physical Exam Vitals and I&O: Vital Signs Temp 98.2 F 10/12/17 06:00 Pulse 87 10/12/17 07:00 Resp 17 10/12/17 07:00 BP 145/72 10/12/17 07:00 Pulse Ox 98 10/12/17 07:00 Intake & Output 10/11/17 10/12/17 10/12/17 18:59 06:59 18:59 Intake Total 1291.883 3450.855 150 Output Total 500 600 Balance 4222.337 5789.855 -450 Weight (lbs) 61.377 kg 61.371 kg Intake: Intake, IV Amount 6678.421 6415.855 DOPamine 400 mg In 250 ml 1.125 6.855 @ 4 MCG/KG/MIN 8.437 mls /hr IV TITR PRN Rx#: [id number] Levofloxacin 250mg/50mL 50 250 mg In 50 ml @ 50 mls/ hr IV Q24H [facility] Rx#: [id number] Potassium Chloride 10 meq 1331.158 9750 In Sodium Chloride 0.9% 1,000 ml @ 125 mls/hr IV .Q8H3M [facility] Rx#:[id number] Sodium Ferric Gluconate 110 125 mg In Sodium Chloride 0.9% 100 ml @ 100 mls/hr IV Q24HR [facility] Rx#: [id number] Other 374 150 Output: Urine 400 400 Stool 100 200 Other: Stool Characteristics Liquid Liquid Brown Brown Active Medications: Current Medications Acetaminophen (Tylenol) 650 mg GT Q6HR PRN PRN Reason: Pain or Fever >101 Stop: 12/01/17 21:40 Last Admin: 10/06/17 16:05 Dose: 650 mg Albuterol/Ipratropium (Duoneb Neb) 3 ml HHN Q4HRT PRN PRN Reason: Wheezing Stop: 12/05/17 15:10 Albuterol/Ipratropium (Duoneb Neb) 3 ml HHN Q4HRT [facility] Stop: 12/05/17 15:14 Last Admin: 10/12/17 06:58 Dose: 3 ml Aspirin (Aspirin Chewable) 81 mg GT DAILY [facility] Stop: 12/02/17 08:59 Last Admin: 10/11/17 09:14 Dose: 81 mg Bisacodyl (Dulcolax 10 Mg Supp) 10 mg RC DAILY PRN PRN Reason: Constipation Stop: 12/01/17 21:40 Potassium Chloride 40 meq/Lidocaine HCl 25 mg/ Sodium Chloride 272.5 mls @ 68 mls/hr IV DAILY PRN PRN Reason: k level less than 3.2 Stop: 12/01/17 21:46 Last Admin: 10/08/17 08:39 Dose: 68 mls/hr Magnesium Sulfate (Magnesium Sulfate Premix) 2 gm in 50 mls @ 25 mls/hr IV DAILY PRN PRN Reason: Magnesium level less than 1.6 Stop: 12/01/17 21:46 Potassium Chloride 10 meq/ (Sodium Chloride) 1,005 mls @ 125 mls/hr IV .Q8H3M [facility] Stop: 12/08/17 15:55 Last Admin: 10/12/17 02:10 Dose: 125 mls/hr Dopamine HCl/Dextrose (Dopamine) 400 mg in 250 mls @ 8.437 mls/hr IV TITR PRN; Protocol; 4 MCG/KG/MIN PRN Reason: BP MAINTENANCE (PER PROTOCOL) Stop: 12/08/17 19:30 Last Titration: 10/12/17 03:15 Dose: 0 mcg/kg/min, 0 mls/hr Levofloxacin (Levaquin Pb) 250 mg in 50 mls @ 50 mls/hr IV Q24H [facility] Stop: 12/09/17 13:59 Last Infusion: 10/11/17 14:50 Dose: Infused Ferric Sodium Gluconate Complex 125 mg/ Sodium Chloride 110 mls @ 100 mls/hr IV Q24HR [facility] Stop: 10/18/17 10:59 Last Infusion: 10/11/17 12:40 Dose: Infused Levothyroxine Sodium (Synthroid) 0.05 mg GT QDAC [facility] Stop: 12/02/17 07:29 Last Admin: 10/12/17 06:35 Dose: 0.05 mg Lorazepam (Ativan) 2 mg IVP Q4HR PRN; Protocol PRN Reason: Anxiety Stop: 12/01/17 21:46 Last Admin: 10/11/17 12:35 Dose: 2 mg Magnesium Hydroxide (Milk Of Magnesia) 30 ml GT HS PRN PRN Reason: Constipation Stop: 12/01/17 21:40 Methylprednisolone Sodium Succinate (Solu-Medrol) 40 mg IVP Q6HR [facility] Stop: 12/05/17 17:59 Last Admin: 10/12/17 06:38 Dose: 40 mg Metoprolol Tartrate (Lopressor) 25 mg GT BID [facility] Stop: 12/02/17 08:59 Last Admin: 10/12/17 08:12 Dose: Not Given Miscellaneous (Probiotic Screen) 1 ea PRN PRN PRN Reason: PROTOCOL Stop: 12/04/17 09:59 Miscellaneous (Vte Chemical Prophylaxis Screen/ Admission) 1 ea PRN PRN PRN Reason: PROTOCOL Stop: 12/07/17 14:31 Morphine Sulfate (Morphine) 2 mg IVP Q4H PRN PRN Reason: moderate pain Stop: 12/01/17 21:46 Last Admin: 10/10/17 23:20 Dose: 2 mg Ondansetron HCl (Zofran) 4 mg IVP Q6H PRN PRN Reason: Nausea / Vomiting Stop: 12/01/17 21:46 Pantoprazole Sodium (Protonix) 40 mg IVP BID [facility] Stop: 12/05/17 16:59 Last Admin: 10/11/17 16:57 Dose: 40 mg Polyethylene Glycol (Miralax) 17 gm PO BID [facility] Stop: 12/04/17 10:14 Last Admin: 10/11/17 16:57 Dose: 17 gm Potassium Chloride (Potassium Chloride Elixir) 40 meq PO DAILY PRN PRN Reason: k level less than 3.5 Stop: 12/03/17 07:20 Last Admin: 10/06/17 08:47 Dose: 40 meq Sodium Phosphate (Fleet Enema) 135 ml RC Q48H PRN PRN Reason: Constipation Stop: 12/01/17 21:40 Last Admin: 10/09/17 09:40 Dose: 135 ml Zolpidem Tartrate (Ambien) 10 mg PO HS PRN PRN Reason: Insomnia Stop: 12/01/17 21:46 General: Mild distress HEENT: Atraumatic, PERRLA, Other (intubated, ET tube in plce) Neck: Supple, no JVD, no Thyromegaly Cardiovascular: Regular rate Lungs: Other (On vent. Decreased BS BL.) Abdomen: Bowel sounds, Other (mild abd distension. G tube present.), no Tender Extremities: no Clubbing, no Edema Neurological: Other (Pt intubated. No awake or alert. ) Skin: no Rash Psych/Mental Status: Other (No psychosis) - Procedures Procedures: Procedures Procedure Code Date INSERT EMERGENCY AIRWAY 59554 10/02/17 INSERTION OF ENDOTRACHEAL AIRWAY INTO TRACHEA, VIA OPENING [id number] 10/02/17 RESPIRATORY VENTILATION, 24-96 CONSECUTIVE HOURS [id number] 10/02/17 VENT MGMT INPAT INIT DAY 10/02/17 VENT MGMT INPAT SUBQ DAY 10/02/17 Assessment/Plan - Assessment Assessment: Acute Resp fail Sepsis with septic shock Hypovolemic Hypernatremia HTN COPD Dysphagia Fecal impaction ME TITUS with Exac Poss asp pna - Plan Plan: Pt is status post extubation on 10/10/17. Awakens to verbal and physical stimulus. Not on any sedation. GI saw pt and ordered water enema and Golytely. He had bm's after bowel prep. - On IV Vanco. ID, Pulm, and Gi following. FU on cultures. WBC trending down. Gt is clamped. However, GI planning on starting feedings today. Afebrile. Off Dopamine now. Spoke with on the phone. She's strongly considering hospice. Discussed care with Dr. Santos as well. Pt is stable enough to be downgraded from ICU. Nutritional Asmnt/Malnutr-PDOC - Dietary Evaluation Malnutrition Findings (Please click <Entered> for more info): Nutritional Asmnt/Malnutrition Start: 10/05/17 17: 05 Text: Status: Complete Freq: Document 10/05/17 17:05 MIKEKit (Rec: 10/05/17 17:26 [id number]) Nutritional Asmnt/Malnutrition Patient General Information Nutritional Screening High Risk Diagnosis aspiration PNA Pertinent Medical Hx/Surgical Hx alzheimer demtnia, COPD, HTN, dysphagia Subjective Information Pt seen resting in bed at time of visit. Received TF Nutren 1.0 fiber 20ml/hr continuous this morning. Notified RN we do not have this formula in stock. changed to Fibersource HN at 20ml/hr continuous. Per notes, pt had fecal impaction, on enema and golytely yesterday, had 5 times of liquidy brown BM. Current Diet Order/ Nutrition Support Fibersource HN at 20ml/hr continuous, providing 576kcal, 26g protein Pertinent Medications D5-0.45ns, culturelle, synthroid, Magnium, piperacillin, miralx, kcl Pertinent Labs 10/05 Na 146, K 3.3, Cl 114, BUN 27, Cr 1.0, Ca 8.1 Nutritional Hx/Data Height 1.78 m Height (Calculated Centimeters) 177.8 Current Weight (lbs) 54.885 kg Weight (Calculated Kilograms) 54.9 Weight (Calculated Grams) 90328.7 [place] Body Weight 166 % [place] Body Weight 73 Body Mass Index (BMI) 17.3 Weight Status Overweight GI Symptoms Last BM 10/05 x 4 Difficult in: None Skin Integrity/Comment: intact Estimated Nutritional Goals BEE in Kcals: Using Current wt Calories/Kcals/Kg 27-32 Kcals Calculated 3714-1672 Protein: Using Current wt Protein g/k.1-1.4 Protein Calculated 61-72 Fluid: ml 1650-1925ml (1ml/kcal) Nutritional Problem 1. Problem Problem inadequate intake from enteral feeding Etiology TF running at low rate d/t fecal impaction Signs/Symptoms: current TF meeting 35% of nutritional needs Malnutrition Alert Protein-Calorie Malnutrition N/A Is there a minimum of two criteria No selected? Query Text:Check all the applicable criteria. A minimum of two criteria are recommended for diagnosis of either severe or non-severe malnutrition. Intervention/Recommendation Comments 1. Continue with current TF regimen at this time. When medically appropriate, increase to goal rate of 50ml/ hr, providing 1440kcal and 65g protein, meeting 100% of nutritional needs. 2. Monitor TF rate, tolerance, wt weekly, skin integrity and labs 3. F/U as nam risk in 2-3 days, 10/07-10/08 Expected Outcomes/Goals Expected Outcomes/Goals 1. Pt to meet at least 75% of nutritional needs via nutrition support with tolerance 2. Wt stability, GI function to improve, skin to remain intact, labs to approach WNL.
[2017-10-12] MEDS ORDERED: D5-0.45NS 1,000 ML IV SCH ×2 (08:45→14:20)
[2017-10-12] MEDS: POLYETHYLENE GLYCOL 3350 17 GM PACK PO SCH ×2 (09:01→17:19)
[2017-10-12] MEDS: Aspirin 81mg Chewable Tab GT SCH (09:02)
[2017-10-12] MEDS: Sodium Ferric Gluconate 125 MG in Sodium Chloride 0.9% 100 ML IV SCH (11:09)
[2017-10-12] MEDS: Fleet Enema 135 mL RC PRN (11:10)
[2017-10-12] MEDS: Levofloxacin 250mg/50mL 250 MG/50 ML BAG IV SCH (13:22)
[2017-10-13] MEDS: Albuterol/Ipratropium Neb 3 ML AERS HHN SCH ×4 (02:18→14:40)
[2017-10-13] MEDS: methylPREDNISolone SS 40 mg Vial IVP SCH ×2 (04:58→12:34)
[2017-10-13] MEDS: Levothyroxine 0.05 Mg Tab GT SCH (06:31)
[2017-10-13 06:51] LABS: BASOPHILE ABSOLUTE 0.1 Th/cumm (0-0.2); HEMOGLOBIN 8.1 gm/dL (12-16); LYMPHOCYTE ABSOLUTE 0.3 Th/cmm (1.5-3.0); MEAN CELL VOLUME 94.6 fl (80-99); MEAN CORPUSCULAR HEMOGLOBIN 31.8 pg (27.0-31.0); MEAN CORPUSCULAR HGB CONC 33.6 pg (28.0-36.0); MEAN PLATELET VOLUME 9.7 fl; MONOCYTE ABSOLUTE 0.3 Th/cmm (0.3-1.0); NEUTROPHILE ABSOLUTE 9.3 Th/cmm (1.8-8.0); PLATELET COUNT 202 Th/cmm (150-400); RED BLOOD COUNT 2.53 Mil/cmm (3.80-5.80); RED CELL DISTRIBUTION WIDTH 18.3 % (11.5-20.0)
[2017-10-13 07:15] LABS: ANION GAP 11.8 (7.0-16.0); BUN - UREA NITROGEN 17 mg/dL (7-25); CALCIUM SERUM 8.1 mg/dL (8.6-10.3); CARBON DIOXIDE 19.8 mEq/L (21.0-31.0); CHLORIDE 119 mEq/L (98-107); GLUCOSE 127 mg/dL (70-105); POTASSIUM SERUM 3.6 mEq/L (3.5-5.1); SODIUM SERUM 147 mEq/L (136-145)
--- NOTE | 2017-10-13 09:10 | GI Progress Note ---
Subjective - Review of Systems Service Date: 10/13/17 Subjective: Continues to have BMs Objective - Results Result Diagrams: 10/13/17 06:40 10/13/17 06:40 Recent Labs: Laboratory Last Values WBC 10.0 Th/cmm (4.8-10.8) 10/13/17 06:40 RBC 2.53 Mil/cmm (3.80-5.80) L 10/13/17 06:40 Hgb 8.1 gm/dL (12-16) L 10/13/17 06:40 Hct 24.0 % (41.0-60) L 10/13/17 06:40 MCV 94.6 fl (80-99) 10/13/17 06:40 MCH 31.8 pg (27.0-31.0) H 10/13/17 06:40 MCHC Differential 33.6 pg (28.0-36.0) 10/13/17 06:40 RDW 18.3 % (11.5-20.0) 10/13/17 06:40 Plt Count 202 Th/cmm (150-400) 10/13/17 06:40 MPV 9.7 fl 10/13/17 06:40 Neutrophils % 65.4 % (40.0-80.0) 10/06/17 05:58 Band Neutrophils % 2 % (0-10) 10/12/17 04:15 Lymphocytes % 14.6 % (20.0-50.0) L 10/06/17 05:58 Monocytes % 7.1 % (2.0-10.0) 10/06/17 05:58 Eosinophils % 12.7 % (0.0-5.0) H 10/06/17 05:58 Basophils % 0.2 % (0.0-2.0) 10/06/17 05:58 Neutrophils (Manual) 86 % (40-80) H 10/12/17 04:15 Lymphocytes 6 % (20-50) L 10/12/17 04:15 Monocytes 4 % (2-10) 10/12/17 04:15 Eosinophils 2 % (0-5) 10/12/17 04:15 Hypochromia 1+ 10/12/17 04:15 Platelet Estimate ADEQUATE (NORMAL) 10/12/17 04:15 Polychromasia 1+ 10/12/17 04:15 Poikilocytosis 1+ 10/08/17 04:15 Macrocytosis 1+ 10/08/17 04:15 PT 11.0 SECONDS (9.5-11.5) 10/11/17 08:45 INR 1.06 (0.5-1.4) 10/11/17 08:45 PTT (Actin FS) 25.0 SECONDS (26.0-38.0) L 10/11/17 08:45 Specimen Source Arterial 10/10/17 11:43 Sample Site Left Radial 10/10/17 11:43 pH 7.38 (7.35-7.45) 10/10/17 11:43 pCO2 34.0 mmHg (35.0-45.0) L 10/10/17 11:43 pO2 109.0 mmHg (80.0-100.0) H 10/10/17 11:43 HCO3 21.6 mEq/L (20.0-26.0) 10/10/17 11:43 Base Excess -4.3 mEq/L (-3.0-3.0) L 10/10/17 11:43 O2 Saturation 98.0 % (92.0-100.0) 10/10/17 11:43 Ramiro Test Positive 10/10/17 11:43 Vent Rate NA 10/10/17 11:43 Inspired O2 40 10/10/17 11:43 Tidal Volume NA 10/10/17 11:43 PEEP NA 10/10/17 11:43 Pressure (ins/psv/peep) NA 10/10/17 11:43 Critical Value LZHANG 10/10/17 11:43 Sodium 147 mEq/L (136-145) H 10/13/17 06:40 Potassium 3.6 mEq/L (3.5-5.1) 10/13/17 06:40 Chloride 119 mEq/L (98-107) H 10/13/17 06:40 Carbon Dioxide 19.8 mEq/L (21.0-31.0) L 10/13/17 06:40 Anion Gap 11.8 (7.0-16.0) 10/13/17 06:40 BUN 17 mg/dL (7-25) 10/13/17 06:40 Creatinine 1.0 mg/dL (0.7-1.3) 10/13/17 06:40 Est GFR ( Amer) TNP 10/13/17 06:40 Est GFR (Non-Af Amer) TNP 10/13/17 06:40 BUN/Creatinine Ratio 17.0 10/13/17 06:40 Glucose 127 mg/dL (70-105) H 10/13/17 06:40 Whole Bld Lactic Acid 1.94 mmol/L (0.60-1.99) 10/07/17 16:26 Calcium 8.1 mg/dL (8.6-10.3) L 10/13/17 06:40 Iron 26 ug/dL (38-169) L 10/09/17 05:50 TIBC 218 ug/dL (250-450) L 10/09/17 05:50 Iron Saturation 12 % (15-55) L 10/09/17 05:50 Unsaturated IBC 192 ug/dL (111-343) 10/09/17 05:50 Ferritin 87 ng/mL (30-400) 10/09/17 05:50 Urine Source CLEAN C 10/04/17 10:00 Urine Color YELLOW 10/04/17 10:00 Urine Clarity HAZY (CLEAR) 10/04/17 10:00 Urine pH 6.5 (4.6 - 8.0) 10/04/17 10:00 Ur Specific [place] 1.020 (1.005-1.030) 10/04/17 10:00 Urine Protein TRACE mg/dL (NEGATIVE) 10/04/17 10:00 Urine Glucose (UA) NEGATIVE mg/dL (NEGATIVE) 10/04/17 10:00 Urine Ketones NEGATIVE mg/dL (NEGATIVE) 10/04/17 10:00 Urine Blood NEGATIVE (NEGATIVE) 10/04/17 10:00 Urine Nitrate NEGATIVE (NEGATIVE) 10/04/17 10:00 Urine Bilirubin NEGATIVE (NEGATIVE) 10/04/17 10:00 Urine Urobilinogen 4.0 E.U./dL (0.2 - 1.0) H 10/04/17 10:00 Ur Leukocyte Esterase NEGATIVE (NEGATIVE) 10/04/17 10:00 Urine RBC 0-2 /hpf (0-5) H 10/04/17 10:00 Urine WBC 2-5 /hpf (0-5) H 10/04/17 10:00 Ur Epithelial Cells OCCASIONAL /lpf (FEW) 10/04/17 10:00 Urine Bacteria FEW /hpf (NONE SEEN) 10/04/17 10:00 Stool Occult Blood POSITIVE (NEGATIVE) H 10/08/17 19:00 Influenza A (Rapid) NEG FOR INF A 10/04/17 02:53 Influenza B (Rapid) NEG FOR INF B 10/04/17 02:53 - Physical Exam Vitals and I&O: Vital Signs Temp 97.3 F 10/13/17 08:00 Pulse 76 10/13/17 08:00 Resp 17 10/13/17 08:00 BP 122/59 10/13/17 08:00 Pulse Ox 99 10/13/17 08:00 Intake & Output 10/12/17 10/13/17 10/13/17 18:59 06:59 18:59 Intake Total 434.667 250 Output Total 600 2150 Balance -165.333 -1900 Weight (lbs) 61.371 kg 61.689 kg Intake: Intake, IV Amount 284.667 D5-0.45NS 1,000 ml @ 40 124.667 mls/hr IV .Q24H [facility] Rx#: [id number] Levofloxacin 250mg/50mL 50 250 mg In 50 ml @ 50 mls/ hr IV Q24H [facility] Rx#: [id number] Sodium Ferric Gluconate 110 125 mg In Sodium Chloride 0.9% 100 ml @ 100 mls/hr IV Q24HR [facility] Rx#: [id number] Oral 0 Tube Feeding 250 Other 150 Output: Urine 400 2100 Stool 200 Other 50 Other: Stool Characteristics Liquid Brown Active Medications: Current Medications Acetaminophen (Tylenol) 650 mg GT Q6HR PRN PRN Reason: Pain or Fever >101 Stop: 12/01/17 21:40 Last Admin: 10/06/17 16:05 Dose: 650 mg Albuterol/Ipratropium (Duoneb Neb) 3 ml HHN Q4HRT PRN PRN Reason: Wheezing Stop: 12/05/17 15:10 Albuterol/Ipratropium (Duoneb Neb) 3 ml HHN Q4HRT [facility] Stop: 12/05/17 15:14 Last Admin: 10/13/17 07:18 Dose: 3 ml Bisacodyl (Dulcolax 10 Mg Supp) 10 mg RC DAILY PRN PRN Reason: Constipation Stop: 12/01/17 21:40 Potassium Chloride 40 meq/Lidocaine HCl 25 mg/ Sodium Chloride 272.5 mls @ 68 mls/hr IV DAILY PRN PRN Reason: k level less than 3.2 Stop: 12/01/17 21:46 Last Admin: 10/08/17 08:39 Dose: 68 mls/hr Magnesium Sulfate (Magnesium Sulfate Premix) 2 gm in 50 mls @ 25 mls/hr IV DAILY PRN PRN Reason: Magnesium level less than 1.6 Stop: 12/01/17 21:46 Dopamine HCl/Dextrose (Dopamine) 400 mg in 250 mls @ 8.437 mls/hr IV TITR PRN; Protocol; 4 MCG/KG/MIN PRN Reason: BP MAINTENANCE (PER PROTOCOL) Stop: 12/08/17 19:30 Last Titration: 10/12/17 03:15 Dose: 0 mcg/kg/min, 0 mls/hr Levofloxacin (Levaquin Pb) 250 mg in 50 mls @ 50 mls/hr IV Q24H [facility] Stop: 12/09/17 13:59 Last Infusion: 10/12/17 18:46 Dose: Infused Ferric Sodium Gluconate Complex 125 mg/ Sodium Chloride 110 mls @ 100 mls/hr IV Q24HR [facility] Stop: 10/18/17 10:59 Last Infusion: 10/12/17 12:15 Dose: Infused Dextrose/Sodium Chloride (D5-0.45ns) 1,000 mls @ 40 mls/hr IV .Q24H [facility] Stop: 12/11/17 08:44 Last Infusion: 10/12/17 18:46 Dose: 40 mls/hr Levothyroxine Sodium (Synthroid) 0.05 mg GT QDAC [facility] Stop: 12/02/17 07:29 Last Admin: 10/13/17 06:31 Dose: 0.05 mg Magnesium Hydroxide (Milk Of Magnesia) 30 ml GT HS PRN PRN Reason: Constipation Stop: 12/01/17 21:40 Methylprednisolone Sodium Succinate (Solu-Medrol) 40 mg IVP Q8HR [facility] Stop: 12/11/17 20:59 Last Admin: 10/13/17 04:58 Dose: 40 mg Metoprolol Tartrate (Lopressor) 25 mg GT BID [facility] Stop: 12/02/17 08:59 Last Admin: 10/12/17 17:19 Dose: 25 mg Miscellaneous (Probiotic Screen) 1 ea MC PRN PRN PRN Reason: PROTOCOL Stop: 12/04/17 09:59 Miscellaneous (Vte Chemical Prophylaxis Screen/ Admission) 1 ea PRN PRN PRN Reason: PROTOCOL Stop: 12/07/17 14:31 Ondansetron HCl (Zofran) 4 mg IVP Q6H PRN PRN Reason: Nausea / Vomiting Stop: 12/01/17 21:46 Pantoprazole Sodium (Protonix) 40 mg IVP BID [facility] Stop: 12/05/17 16:59 Last Admin: 10/12/17 17:19 Dose: 40 mg Polyethylene Glycol (Miralax) 17 gm PO BID [facility] Stop: 12/04/17 10:14 Last Admin: 10/12/17 17:19 Dose: 17 gm Potassium Chloride (Potassium Chloride Elixir) 40 meq PO DAILY PRN PRN Reason: k level less than 3.5 Stop: 12/03/17 07:20 Last Admin: 10/06/17 08:47 Dose: 40 meq Sodium Phosphate (Fleet Enema) 135 ml RC Q48H PRN PRN Reason: Constipation Stop: 12/01/17 21:40 Last Admin: 10/12/17 11:10 Dose: 135 ml Zolpidem Tartrate (Ambien) 10 mg PO HS PRN PRN Reason: Insomnia Stop: 12/01/17 21:46 General: Alert HEENT: Atraumatic, PERRLA, Other (intubated, ET tube in plce) Neck: Supple, no JVD, no Thyromegaly Cardiovascular: Regular rate Lungs: Other (On vent. Decreased BS BL.) Abdomen: Bowel sounds, Other (mild abd distension. G tube present.), no Tender Extremities: no Clubbing, no Edema Neurological: Other (Pt intubated. No awake or alert. ) Skin: no Rash - Procedures Procedures: Procedures Procedure Code Date INSERT EMERGENCY AIRWAY 13235 10/02/17 INSERTION OF ENDOTRACHEAL AIRWAY INTO TRACHEA, VIA OPENING [id number] 10/02/17 RESPIRATORY VENTILATION, 24-96 CONSECUTIVE HOURS [id number] 10/02/17 VENT MGMT INPAT INIT DAY 10/02/17 VENT MGMT INPAT SUBQ DAY 10/02/17 Assessment/Plan - Assessment Assessment: # Fecal impaction # Abd distension # Possible pneumonia # Anemia CT and KUB show large fecal impaction. Now s/p several enemas and golytely bowel prep and is having liquid stool. KUB on 10/04 shows some improvement although still large amount of stool. KUB 10/09 again shows persisting impaction. Some improvement noted on KUB 10/11 after 2nd bowel prep. No overt GI bleeding, although pt has had some blood loss from his trach. OB stool occult is positive, but this is expected given he has a large fecal impaction. # Respiratory failure, possible pneumonia Transferred to ICU 10/06 for increased respiratory distress, and was intubated for a time and now extubated Plan: - would not act on stool OB positive without evidence of overt GI bleeding. Fecal impaction will cause a stool occult positive - cont miralax bid dosing and daily enema. Will add dulcolax as well - cont with 7 days of IV iron to resupply iron stores - management of pneumonia as per primary
[2017-10-13] MEDS: POLYETHYLENE GLYCOL 3350 17 GM PACK PO SCH ×2 (09:11→18:05)
[2017-10-13] MEDS: Sodium Ferric Gluconate 125 MG in Sodium Chloride 0.9% 100 ML IV SCH (10:29)
--- NOTE | 2017-10-13 11:36 | Infectious Disease Prog Note ---
Infectious Disease Subjective - Review of Systems Service Date: 10/13/17 Subjective: There is no fever. Infectious Disease Objective - Results Result Diagrams: 10/13/17 06:40 10/13/17 06:40 Recent Labs: Laboratory Last Values WBC 10.0 Th/cmm (4.8-10.8) 10/13/17 06:40 RBC 2.53 Mil/cmm (3.80-5.80) L 10/13/17 06:40 Hgb 8.1 gm/dL (12-16) L 10/13/17 06:40 Hct 24.0 % (41.0-60) L 10/13/17 06:40 MCV 94.6 fl (80-99) 10/13/17 06:40 MCH 31.8 pg (27.0-31.0) H 10/13/17 06:40 MCHC Differential 33.6 pg (28.0-36.0) 10/13/17 06:40 RDW 18.3 % (11.5-20.0) 10/13/17 06:40 Plt Count 202 Th/cmm (150-400) 10/13/17 06:40 MPV 9.7 fl 10/13/17 06:40 Neutrophils % 65.4 % (40.0-80.0) 10/06/17 05:58 Band Neutrophils % 2 % (0-10) 10/12/17 04:15 Lymphocytes % 14.6 % (20.0-50.0) L 10/06/17 05:58 Monocytes % 7.1 % (2.0-10.0) 10/06/17 05:58 Eosinophils % 12.7 % (0.0-5.0) H 10/06/17 05:58 Basophils % 0.2 % (0.0-2.0) 10/06/17 05:58 Neutrophils (Manual) 86 % (40-80) H 10/12/17 04:15 Lymphocytes 6 % (20-50) L 10/12/17 04:15 Monocytes 4 % (2-10) 10/12/17 04:15 Eosinophils 2 % (0-5) 10/12/17 04:15 Hypochromia 1+ 10/12/17 04:15 Platelet Estimate ADEQUATE (NORMAL) 10/12/17 04:15 Polychromasia 1+ 10/12/17 04:15 Poikilocytosis 1+ 10/08/17 04:15 Macrocytosis 1+ 10/08/17 04:15 PT 11.0 SECONDS (9.5-11.5) 10/11/17 08:45 INR 1.06 (0.5-1.4) 10/11/17 08:45 PTT (Actin FS) 25.0 SECONDS (26.0-38.0) L 10/11/17 08:45 Specimen Source Arterial 10/10/17 11:43 Sample Site Left Radial 10/10/17 11:43 pH 7.38 (7.35-7.45) 10/10/17 11:43 pCO2 34.0 mmHg (35.0-45.0) L 10/10/17 11:43 pO2 109.0 mmHg (80.0-100.0) H 10/10/17 11:43 HCO3 21.6 mEq/L (20.0-26.0) 10/10/17 11:43 Base Excess -4.3 mEq/L (-3.0-3.0) L 10/10/17 11:43 O2 Saturation 98.0 % (92.0-100.0) 10/10/17 11:43 Ramiro Test Positive 10/10/17 11:43 Vent Rate NA 10/10/17 11:43 Inspired O2 40 10/10/17 11:43 Tidal Volume NA 10/10/17 11:43 PEEP NA 10/10/17 11:43 Pressure (ins/psv/peep) NA 10/10/17 11:43 Critical Value LZHANG 10/10/17 11:43 Sodium 147 mEq/L (136-145) H 10/13/17 06:40 Potassium 3.6 mEq/L (3.5-5.1) 10/13/17 06:40 Chloride 119 mEq/L (98-107) H 10/13/17 06:40 Carbon Dioxide 19.8 mEq/L (21.0-31.0) L 10/13/17 06:40 Anion Gap 11.8 (7.0-16.0) 10/13/17 06:40 BUN 17 mg/dL (7-25) 10/13/17 06:40 Creatinine 1.0 mg/dL (0.7-1.3) 10/13/17 06:40 Est GFR ( Amer) TNP 10/13/17 06:40 Est GFR (Non-Af Amer) TNP 10/13/17 06:40 BUN/Creatinine Ratio 17.0 10/13/17 06:40 Glucose 127 mg/dL (70-105) H 10/13/17 06:40 Whole Bld Lactic Acid 1.94 mmol/L (0.60-1.99) 10/07/17 16:26 Calcium 8.1 mg/dL (8.6-10.3) L 10/13/17 06:40 Iron 26 ug/dL (38-169) L 10/09/17 05:50 TIBC 218 ug/dL (250-450) L 10/09/17 05:50 Iron Saturation 12 % (15-55) L 10/09/17 05:50 Unsaturated IBC 192 ug/dL (111-343) 10/09/17 05:50 Ferritin 87 ng/mL (30-400) 10/09/17 05:50 Urine Source CLEAN C 10/04/17 10:00 Urine Color YELLOW 10/04/17 10:00 Urine Clarity HAZY (CLEAR) 10/04/17 10:00 Urine pH 6.5 (4.6 - 8.0) 10/04/17 10:00 Ur Specific [place] 1.020 (1.005-1.030) 10/04/17 10:00 Urine Protein TRACE mg/dL (NEGATIVE) 10/04/17 10:00 Urine Glucose (UA) NEGATIVE mg/dL (NEGATIVE) 10/04/17 10:00 Urine Ketones NEGATIVE mg/dL (NEGATIVE) 10/04/17 10:00 Urine Blood NEGATIVE (NEGATIVE) 10/04/17 10:00 Urine Nitrate NEGATIVE (NEGATIVE) 10/04/17 10:00 Urine Bilirubin NEGATIVE (NEGATIVE) 10/04/17 10:00 Urine Urobilinogen 4.0 E.U./dL (0.2 - 1.0) H 10/04/17 10:00 Ur Leukocyte Esterase NEGATIVE (NEGATIVE) 10/04/17 10:00 Urine RBC 0-2 /hpf (0-5) H 10/04/17 10:00 Urine WBC 2-5 /hpf (0-5) H 10/04/17 10:00 Ur Epithelial Cells OCCASIONAL /lpf (FEW) 10/04/17 10:00 Urine Bacteria FEW /hpf (NONE SEEN) 10/04/17 10:00 Stool Occult Blood POSITIVE (NEGATIVE) H 10/08/17 19:00 Influenza A (Rapid) NEG FOR INF A 10/04/17 02:53 Influenza B (Rapid) NEG FOR INF B 10/04/17 02:53 - Physical Exam Vitals and I&O: Vital Signs Temp 97.3 F 10/13/17 08:00 Pulse 76 10/13/17 09:11 Resp 17 10/13/17 08:00 BP 122/59 10/13/17 09:11 Pulse Ox 99 10/13/17 08:00 Intake & Output 10/12/17 10/13/17 10/13/17 18:59 06:59 18:59 Intake Total 434.667 250 Output Total 600 2150 Balance -165.333 -1900 Weight (lbs) 61.371 kg 61.689 kg Intake: Intake, IV Amount 284.667 D5-0.45NS 1,000 ml @ 40 124.667 mls/hr IV .Q24H [facility] Rx#: [id number] Levofloxacin 250mg/50mL 50 250 mg In 50 ml @ 50 mls/ hr IV Q24H [facility] Rx#: [id number] Sodium Ferric Gluconate 110 125 mg In Sodium Chloride 0.9% 100 ml @ 100 mls/hr IV Q24HR [facility] Rx#: [id number] Oral 0 Tube Feeding 250 Other 150 Output: Urine 400 2100 Stool 200 Other 50 Other: Stool Characteristics Liquid Brown Active Medications: Current Medications Acetaminophen (Tylenol) 650 mg GT Q6HR PRN PRN Reason: Pain or Fever >101 Stop: 12/01/17 21:40 Last Admin: 10/06/17 16:05 Dose: 650 mg Albuterol/Ipratropium (Duoneb Neb) 3 ml HHN Q4HRT PRN PRN Reason: Wheezing Stop: 12/05/17 15:10 Albuterol/Ipratropium (Duoneb Neb) 3 ml HHN Q4HRT [facility] Stop: 12/05/17 15:14 Last Admin: 10/13/17 07:18 Dose: 3 ml Bisacodyl (Dulcolax 10 Mg Supp) 10 mg RC DAILY PRN PRN Reason: Constipation Stop: 12/01/17 21:40 Potassium Chloride 40 meq/Lidocaine HCl 25 mg/ Sodium Chloride 272.5 mls @ 68 mls/hr IV DAILY PRN PRN Reason: k level less than 3.2 Stop: 12/01/17 21:46 Last Admin: 10/08/17 08:39 Dose: 68 mls/hr Magnesium Sulfate (Magnesium Sulfate Premix) 2 gm in 50 mls @ 25 mls/hr IV DAILY PRN PRN Reason: Magnesium level less than 1.6 Stop: 12/01/17 21:46 Dopamine HCl/Dextrose (Dopamine) 400 mg in 250 mls @ 8.437 mls/hr IV TITR PRN; Protocol; 4 MCG/KG/MIN PRN Reason: BP MAINTENANCE (PER PROTOCOL) Stop: 12/08/17 19:30 Last Titration: 10/12/17 03:15 Dose: 0 mcg/kg/min, 0 mls/hr Levofloxacin (Levaquin Pb) 250 mg in 50 mls @ 50 mls/hr IV Q24H [facility] Stop: 12/09/17 13:59 Last Infusion: 10/12/17 18:46 Dose: Infused Ferric Sodium Gluconate Complex 125 mg/ Sodium Chloride 110 mls @ 100 mls/hr IV Q24HR [facility] Stop: 10/18/17 10:59 Last Admin: 10/13/17 10:29 Dose: 100 mls/hr Dextrose/Sodium Chloride (D5-0.45ns) 1,000 mls @ 40 mls/hr IV .Q24H [facility] Stop: 12/11/17 08:44 Last Infusion: 10/12/17 18:46 Dose: 40 mls/hr Levothyroxine Sodium (Synthroid) 0.05 mg GT QDAC [facility] Stop: 12/02/17 07:29 Last Admin: 10/13/17 06:31 Dose: 0.05 mg Magnesium Hydroxide (Milk Of Magnesia) 30 ml GT HS PRN PRN Reason: Constipation Stop: 12/01/17 21:40 Methylprednisolone Sodium Succinate (Solu-Medrol) 40 mg IVP Q8HR [facility] Stop: 12/11/17 20:59 Last Admin: 10/13/17 04:58 Dose: 40 mg Metoprolol Tartrate (Lopressor) 25 mg GT BID [facility] Stop: 12/02/17 08:59 Last Admin: 10/13/17 09:11 Dose: 25 mg Miscellaneous (Probiotic Screen) 1 ea PRN PRN PRN Reason: PROTOCOL Stop: 12/04/17 09:59 Miscellaneous (Vte Chemical Prophylaxis Screen/ Admission) 1 ea PRN PRN PRN Reason: PROTOCOL Stop: 12/07/17 14:31 Ondansetron HCl (Zofran) 4 mg IVP Q6H PRN PRN Reason: Nausea / Vomiting Stop: 12/01/17 21:46 Pantoprazole Sodium (Protonix) 40 mg IVP BID [facility] Stop: 12/05/17 16:59 Last Admin: 10/13/17 09:11 Dose: 40 mg Polyethylene Glycol (Miralax) 17 gm PO BID [facility] Stop: 12/04/17 10:14 Last Admin: 10/13/17 09:11 Dose: 17 gm Potassium Chloride (Potassium Chloride Elixir) 40 meq PO DAILY PRN PRN Reason: k level less than 3.5 Stop: 12/03/17 07:20 Last Admin: 10/06/17 08:47 Dose: 40 meq Sodium Phosphate (Fleet Enema) 135 ml RC Q48H PRN PRN Reason: Constipation Stop: 12/01/17 21:40 Last Admin: 10/12/17 11:10 Dose: 135 ml Zolpidem Tartrate (Ambien) 10 mg PO HS PRN PRN Reason: Insomnia Stop: 12/01/17 21:46 General: no acute distress, well developed, well nourished, cachectic HEENT: atraumatic, normocephalic, PERRLA, EOMI Neck: supple, thyromegaly Cardiovascular: S1S2, regular Lungs: clear to auscultation bilaterally, clear to percussion, no crackles, no wheeze Abdomen: soft, no tender, no distended, no mass, no rebound, no hepatomegaly, no splenomegaly Extremities: no cyanosis, no clubbing, no edema Neurological: awake, alert, oriented Skin: intact - Procedures Procedures: Procedures Procedure Code Date INSERT EMERGENCY AIRWAY 60332 10/02/17 INSERTION OF ENDOTRACHEAL AIRWAY INTO [place], VIA OPENING [id number] 10/02/17 RESPIRATORY VENTILATION, 24-96 CONSECUTIVE HOURS [id number] 10/02/17 VENT MGMT INPAT INIT DAY [id number] 10/02/17 VENT MGMT INPAT SUBQ 10/02/17 Infectious Disease Assmt/Plan - Assessment Assessment: 1. Leukocytosis, respiratory failure, sepsis. 2. Aspiration pneumonia versus healthcare facility associated pneumonia. 3. Dementia. 4. COPD and COPD exacerbation. 5. Hypertension. - Plan Plan: continue levquin po x 4 days. Nutritional Asmnt/Malnutr-PDOC - Dietary Evaluation Malnutrition Findings (Please click <Entered> for more info): Nutritional Asmnt/Malnutrition Start: 10/05/17 17: 05 Text: Status: Complete Freq: Document 10/05/17 17:05 MIKE (Rec: 10/05/17 17:26 [email or web address] [id number]) Nutritional Asmnt/Malnutrition Patient General Information Nutritional Screening High Risk Diagnosis aspiration PNA Pertinent Medical Hx/Surgical Hx alzheimer demtnia, COPD, HTN, dysphagia Subjective Information Pt seen resting in bed at time of visit. Received TF Nutren 1.0 fiber 20ml/hr continuous this morning. Notified RN we do not have this formula in stock. changed to Fibersource HN at 20ml/hr continuous. Per notes, pt had fecal impaction, on enema and golytely yesterday, had 5 times of liquidy brown BM. Current Diet Order/ Nutrition Support Fibersource HN at 20ml/hr continuous, providing 576kcal, 26g protein Pertinent Medications D5-0.45ns, culturelle, synthroid, Magnium, piperacillin, miralx, kcl Pertinent Labs 10/05 Na 146, K 3.3, Cl 114, BUN 27, Cr 1.0, Ca 8.1 Nutritional Hx/Data Height 1.78 m Height (Calculated Centimeters) 177.8 Current Weight (lbs) 54.885 kg Weight (Calculated Kilograms) 54.9 Weight (Calculated Grams) 14601.7 [place] Body Weight 166 % [place] Body Weight 73 Body Mass Index (BMI) 17.3 Weight Status Overweight GI Symptoms Last BM 10/05 x 4 Difficult in: None Skin Integrity/Comment: intact Estimated Nutritional Goals BEE in Kcals: Using Current wt Calories/Kcals/Kg 27-32 Kcals Calculated 4261-8068 Protein: Using Current wt Protein g/k.1-1.4 Protein Calculated 61-72 Fluid: ml 1650-1925ml (1ml/kcal) Nutritional Problem 1. Problem Problem inadequate intake from enteral feeding Etiology TF running at low rate d/t fecal impaction Signs/Symptoms: current TF meeting 35% of nutritional needs Malnutrition Alert Protein-Calorie Malnutrition N/A Is there a minimum of two criteria No selected? Query Text:Check all the applicable criteria. A minimum of two criteria are recommended for diagnosis of either severe or non-severe malnutrition. Intervention/Recommendation Comments 1. Continue with current TF regimen at this time. When medically appropriate, increase to goal rate of 50ml/ hr, providing 1440kcal and 65g protein, meeting 100% of nutritional needs. 2. Monitor TF rate, tolerance, wt weekly, skin integrity and labs 3. F/U as nam risk in 2-3 days, 10/07-10/08 Expected Outcomes/Goals Expected Outcomes/Goals 1. Pt to meet at least 75% of nutritional needs via nutrition support with tolerance 2. Wt stability, GI function to improve, skin to remain intact, labs to approach WNL.
--- NOTE | 2017-10-13 22:08 | Discharge Summary ---
DATE OF DISCHARGE: 10/13/2017 ADDENDUM The patient was not discharged during the previous anticipated date as he became severely short of breath. He had significant respiratory distress and declined. He was intubated and placed in the ICU. New diagnosis are the following for: DISCHARGE DIAGNOSES: 1. Acute respiratory failure, status post intubation and extubation. 2. Sepsis with septic shock, status post dopamine drip. 3. Hypovolemic hypernatremia. 4. Hypertension. 5. Chronic obstructive pulmonary disease. 6. Dysphagia. 7. Fecal impaction. 8. Metabolic encephalopathy. 9. Dementia, Alzheimer's type with exacerbation. 10. Possible aspiration pneumonia. SUMMARY OF HOSPITAL COURSE: The patient was extubated on 10/10/2017. He has been awake and he has been responding to verbal stimulus. I also discussed care plan with the on several occasions. She is okay with him being full DNR. She wants to consider hospice; however, if he declines he does not want back to the hospital. He has been on IV vancomycin, which is changed to IV meropenem followed by Levaquin. Now, he has been cleared for discharge. GI saw the patient, he has several bowel movements after his bowel prep. His G-tube was clamped, but he has resumed the feedings yesterday on 10/12/2017. He is tolerating them well. He is off the dopamine drip. He is stable to be discharged back to the half-way facility. PHYSICAL EXAMINATION: VITAL SIGNS: Temperature 97.2 degrees, heart rate is 96, respirations 18, blood pressure 161/94. Currently, no pain. GENERAL: In no acute distress. He is awake, alert to name. HEENT: No acute issues. NECK: Trachea is midline. CARDIOVASCULAR: Regular rate and rhythm. ABDOMEN: Nontender, nondistended. G-tube is intact. SKIN: No rashes. LABORATORY DATA: White count is 10, hemoglobin is 8.1. It is likely trended up from 7.5, platelet count 202,000. Sodium 147, potassium 3.6, chloride 119, bicarbonate 19.8, BUN , creatinine is 1, calcium is 8.1. DISPOSITION: He is being discharged back to the half-way facility. CONSULTS: Dr. Dakotah Langley for ID, Dr. Santos for GI and Dr. Langley for Pulmonary. DISPOSITION: He is being discharged back to half-way facility. PROCEDURES: None with the exception of the PICC line. I discussed the PICC line with the , myself and she gave consent. MEDICATIONS: All medication reviewed and reconciled. We will continue IV Levaquin for 5 more days. [facility]# [id number]
== END 2017-10-13 20:10 | DRG 871 ==
LOC: ER 19:09 → MSI 21:06 → TELE 10-06 17:58 → ICU 10-07 04:31 → TELE 10-12 14:00
PROVIDERS: ADMIT General Practice; ATTEND General Practice
PROC: 0BH17EZ Insertion of Endotracheal Airway into Trachea, Via Natural or Artificial Opening (ICD-10-PCS; principal; 2017-10-07)
PROC: 5A1945Z Respiratory Ventilation, 24-96 Consecutive Hours (ICD-10-PCS; 2017-10-07)
PROC: 0XH833Z Insertion of Infusion Device into Right Upper Arm, Percutaneous Approach (ICD-10-PCS; 2017-10-11)
DX: A41.9 Sepsis, unspecified organism (principal); G93.41 Metabolic encephalopathy; J69.0 Pneumonitis due to inhalation of food and vomit; J96.00 Acute respiratory failure, unspecified whether with hypoxia or hypercapnia; R65.21 Severe sepsis with septic shock; E87.0 Hyperosmolality and hypernatremia; J44.1 Chronic obstructive pulmonary disease with (acute) exacerbation; R13.10 Dysphagia, unspecified; F02.81 Dementia in other diseases classified elsewhere, unspecified severity, with behavioral disturbance; G30.9 Alzheimer's disease, unspecified; K56.41 Fecal impaction; I10 Essential (primary) hypertension; Z66 Do not resuscitate; E03.9 Hypothyroidism, unspecified; D63.8 Anemia in other chronic diseases classified elsewhere; M62.81 Muscle weakness (generalized); Z79.82 Long term (current) use of aspirin; Z93.1 Gastrostomy status
CPT/HCPCS: 36415-UA; 36600-90; 71045-TC; 74000-TC; 80048-TC; 81001-TC; 82270-TC; 82728-90; 82803-TC; 83540-90; 83550-90; 83605; 85007-TC; 85025-TC; 85027-TC; 85610-TC; 85730-TC; 87070; 87804-TC; 93005; 94003; 94640; 94664; 94760; C9113; J1265; J1644; J1956; J2001; J2060; J2185; J2270; J2543; J2916; J2920; J3370; J3480; J7030; J7040; J7042; Z7610